=== PATIENT | male | born 1960 | race Two or more races ===

== ENCOUNTER 2021-01-13 10:31 | Inpatient (IN) | payer MEDICARE, MEDICAID ==
[~2021-01-13] VITALS: Ht 170.2 cm; Wt 79.4 kg
[2021-01-13] MEDS ORDERED: Morphine Sulfate 2mg/ml Inj(IV/IM USE ONLY) IVP ONE (10:45)
[2021-01-13] MEDS ORDERED: METOPROLOL TART25 MG ORAL (10:45)
[2021-01-13] MEDS ORDERED: ATORVASTATIN CA40 MG ORAL (10:45)
[2021-01-13] MEDS ORDERED: ZOFRAN4 M1 ORAL (10:45)
--- NOTE | 2021-01-13 11:26 | Emergency Room Report ---
History of Present Illness General Chief Complaint: Abdominal Pain Source: Patient Present Illness HPI Patient presents complaining of total body pain. He is also jaundiced. Apparently was recently discharged from the hospital. The pain throughout his body is severe. He was discharged on Dilaudid. Unknown whether he has been receiving this medication. He has a history of liver cancer. There is a suggestion that he was discharged to hospice. There is no clear documentation of this. However family contacted his private doctor and requested repeat evaluation and therefore he was brought to the emergency department. History of diabetes, hypertension and cirrhosis. Patient denies fevers or chills. Review of outside records reveal that he has had atrial fibrillation with rapid ventricular rate. Patient denies dysuria. He has had loose stools without passing any blood or melena. He is felt nauseated but denies vomiting. There is no coffee-ground or bloody vomitus. The patient has a nonproductive cough. He does not feel short of breath at this time. Allergies: Coded Allergies: CEPHALEXIN (Verified Allergy, Unknown, 01/13/21) COVID-19 Screening Contact w/high risk pt: No Experienced COVID-19 symptoms?: No COVID-19 Testing performed [employer]: No Patient History Past Medical History: see triage record, other - Varices, liver mass Past Surgical History: other - shunt Social History: Denies: smoking Social History Narrative With family Reviewed Nursing Documentation: PMH: Agreed; PSxH: Agreed Nursing Documentation-PMH Past Medical History: No History, Except For Hx Hypertension: Yes Hx Diabetes: Yes Hx Cancer: Yes - liver Hx Gastrointestinal Problems: Yes - liver cirrosis Review of Systems All Other Systems: negative except mentioned in HPI Physical Exam Vital Signs Date Time Temp Pulse Resp B/P (MAP) Pulse Ox O2 Delivery O2 Flow Rate FiO2 01/13/21 10:40 97.0 56 14 129/58 (81) 96 Room Air Sp02 EP Interpretation: reviewed, normal General Appearance: mild distress, other - Jaundiced in mild distress, Chronically Ill Eyes: bilateral eye PERRL, bilateral eye EOMI, bilateral eye scleral icterus ENT: dry mucus membranes - Poor dentition Neck: full range of motion, supple Respiratory: lungs clear, normal breath sounds, no respiratory distress Cardiovascular #1: tachycardia, edema Cardiovascular #2: 2+ radial (R) Gastrointestinal: soft, no guarding, no rebound, tenderness, decreased bowel sounds, overweight Genitourinary: no CVA tenderness Musculoskeletal: back normal, no calf tenderness Neurologic: alert, oriented, DTRs symmetric, sensory intact, motor weakness - Diffuse, other - No asterixis Psychiatric: mood/affect normal Skin: warm/dry, jaundice Procedures Critical Care Time Critical Care Time Total Critical Care Time: 35 min bedside evaluation and treatment excludes procedures (EKG). Reason for critical care: Liver failure, atrial fibrillation rapid ventricular response, urinary tract infection with increased lactic lactic acid, repeat evaluations, review of outside records Possible complications: hypotension, hypertension, [place], shock, arrhythmias, metabolic acidosis, end organ damage, respiratory failure. Interventions: Review of outside records, evaluation of possible hospice status, treatment of pain with repeat evaluations. Evaluation of tachycardia. Treatment of possible early sepsis with elevated lactic acid. Initiation of antibiotics, fluids. Metoprolol given for atrial fibrillation with rapid ventricular response. Course: Patient with jaundice and history of liver cancer presents with body pain. Complicated patient. Please see interventions above. Repeat evaluations undertaken. Repeat treatments of pain. Treatment of tachycardia initially with pain medication. Fluid bolus and antibiotics instituted for urinary tract infection when urine was finally obtained. Repeated doses of analgesics with repeat evaluations. Discussion with admitting physician. Consultations: nursing staff, primary physician office staff, admitting physician Performed by: Dr. Shearer Tolerated well condition = serious Medical Decision Making Diagnostic Impression: Primary Impression: Liver failure Qualified Codes: K72.00 - Acute and subacute hepatic failure without coma Additional Impressions: Pancreatitis Qualified Codes: K85.90 - Acute pancreatitis without necrosis or infection, unspecified Leukocytosis Qualified Codes: D72.829 - Elevated white blood cell count, unspecified Renal insufficiency Coagulopathy Atrial fibrillation with RVR UTI (urinary tract infection) Qualified Codes: N39.0 - Urinary tract infection, site not specified Pleural effusion associated with hepatic disorder ER Course Patient with known liver disease presents with total body pain. Differential includes sepsis, liver failure, occult infection, spontaneous bacterial peritonitis, pneumonia, opiate dependence amongst others. Patient evaluated EKG, chest x-ray, CT of the abdomen and labs. Patient treated with analgesia. Complicated patient. Patient placed on cardiac technologist. Ext jug started by me. EKG without injury. Tachycardia with PVCs. Chest x-ray poor inspiration. CT abdomen see below with liver mass. Labs with leukocytosis. Anemia. Elevated lipase. Elevated ammonia. Patient dropped his oxygen saturation to 92%. Oxygen begun. In no respiratory distress. Patient c/o pain. Morphine increased. Still complain of pain and Dilaudid administered. A fib with RVR. Metoprolol ordered. Also small fluid bolus. 1420 Delay for obtaining urinalysis. Late addition of lactic acid which returns el evated. Antibiotics have been started for pyuria. Sepsis re-evaluation. Mental status unchanged. Good perfusion. Heart rate improved with metoprolol and fluids. Discussed with the primary physician. Laboratory Tests Test 01/13/21 11:11 01/13/21 14:24 White Blood Count 14.6 K/UL (4.8-10.8) H Red Blood Count 2.88 M/UL (4.70-6.10) L Hemoglobin 8.9 G/DL (14.2-18.0) L Hematocrit 28.6 % (42.0-52.0) L Mean Corpuscular Volume 99 FL (80-99) Mean Corpuscular Hemoglobin 30.9 PG (27.0-31.0) Mean Corpuscular Hemoglobin Concent 31.1 G/DL (32.0-36.0) L Red Cell Distribution Width 22.9 % (11.6-14.8) H Platelet Count 118 K/UL (150-450) L Mean Platelet Volume 8.0 FL (6.5-10.1) Neutrophils (%) (Auto) 82.8 % (45.0-75.0) H Lymphocytes (%) (Auto) 5.5 % (20.0-45.0) L Monocytes (%) (Auto) 11.2 % (1.0-10.0) H Eosinophils (%) (Auto) 0.3 % (0.0-3.0) Basophils (%) (Auto) 0.3 % (0.0-2.0) Prothrombin Time 18.8 SEC (9.30-11.50) H Prothrombin Time INR 1.8 (0.9-1.1) H Activated Partial Thromboplast Time 43 SEC (23-33) H Sodium Level 133 MMOL/L (136-145) L Potassium Level 4.6 MMOL/L (3.5-5.1) Chloride Level 101 MMOL/L (98-107) Carbon Dioxide Level 20 MMOL/L (21-32) L Anion Gap 12 mmol/L (5-15) Blood Urea Nitrogen 45 mg/dL (7-18) H Creatinine 1.8 MG/DL (0.55-1.30) H Estimated Glomerular Filtration Rate 38.9 mL/min (>60) Glucose Level 101 MG/DL (74-106) Lactic Acid Level 3.40 mmol/L (0.4-2.0) H Calcium Level 8.3 MG/DL (8.5-10.1) L Total Bilirubin 26.0 MG/DL (0.2-1.0) H Direct Bilirubin 18.8 MG/DL (0.0-0.3) H Aspartate Amino Transferase (AST) 180 U/L (15-37) H Alanine Aminotransferase (ALT) 74 U/L (12-78) Alkaline Phosphatase 634 U/L (46-116) H Ammonia 71 umol/L (11-32) H Total Creatine Kinase 57 U/L (26-308) Troponin I 0.014 ng/mL (0.000-0.056) Total Protein 7.0 G/DL (6.4-8.2) Albumin 1.8 G/DL (3.4-5.0) L Globulin 5.2 g/dL Albumin/Globulin Ratio 0.3 (1.0-2.7) L Lipase > 2000 U/L (73-393) H Serum Alcohol < 3 mg/dL Urine Color [place] Urine Appearance Cloudy Urine pH 5 (4.5-8.0) Urine Specific [place] 1.020 (1.005-1.035) Urine Protein 2+ (NEGATIVE) H Urine Glucose (UA) 1+ (NEGATIVE) H Urine Ketones 1+ (NEGATIVE) H Urine Blood 4+ (NEGATIVE) H Urine Nitrite Positive (NEGATIVE) H Urine Bilirubin 3+ (NEGATIVE) H Urine Ictotest Positive (NEGATIVE) Urine Urobilinogen 8 MG/DL (0.0-1.0) H Urine Leukocyte Esterase 3+ (NEGATIVE) H Urine RBC 2-4 /HPF (0 - 0) H Urine WBC Tntc /HPF (0 - 0) H Urine Squamous Epithelial Cells Occasional /LPF Urine Bacteria Many /HPF (NONE) H Urine Coarse Granular Casts 0-2 /LPF (NONE) H EKG Diagnostic Results Rate: normal Rhythm: other - Atrial bigeminy ST Segments: no acute changes Rhythm Strip Diag. Results EP Interpretation: yes Rhythm: NSR, other - Atrial bigeminy Chest X-Ray Diagnostic Results Chest X-Ray Diagnostic Results : Chest X-Ray Ordered: Yes # of Views/Limited/Complete: 1 View Indication: Other EP Interpretation: Yes Interpretation: no pneumothorax, other - Right pleural effusion Impression: Other CT/MRI/US Diagnostic Results CT/MRI/US Diagnostic Results : Imaging Test Ordered: Abdomen and pelvis Impression Impression: Evidence of hepatic cirrhosis, with atrophy and surface nodularity 6.7 cm round exophytic mass arising from segment 4A of the liver. This is presumably related to stated clinical history of liver cancer. Surgical clips are seen adjacent to this mass. Evidence of portal hypertension, with large periesophageal and perigastric varices Moderate ascites, likely related to liver disease. However, there is also a ventriculoperitoneal shunt catheter which may be contributing some volume to the ascites. There is evidence of anasarca, including massive right pleural effusion, diffuse edema of the subcutaneous and abdominal fat limiting assessment of the GI tract, due to lack of enteric contrast administration. No gross acute GI pathology. Colonic diverticulosis. No evidence of diverticulitis Borderline cardiomegaly Incidental finding bilateral gynecomastia Last Vital Signs Date Time Temp Pulse Resp B/P (MAP) Pulse Ox O2 Delivery O2 Flow Rate FiO2 01/13/21 16:00 98.6 109 20 133/85 (101) 100 01/13/21 15:49 Room Air 01/13/21 13:11 2.0 01/13/21 13:11 100 Status: improved Disposition: ADMITTED INPATIENT Condition: Serious Sam Shearer MD Jan 13, 2021 11:26
[2021-01-13 11:39] LABS: BASOPHILS % (AUTO) 0.3 % (0.0-2.0); EOSINOPHILS % (AUTO) 0.3 % (0.0-3.0); HEMATOCRIT 28.6 % (42.0-52.0); HEMOGLOBIN 8.9 G/DL (14.2-18.0); LYMPHOCYTES % (AUTO) 5.5 % (20.0-45.0); MEAN CORPUSCULAR VOLUME 99 FL (80-99); MONOCYTES % (AUTO) 11.2 % (1.0-10.0); NEUTROPHILS % (AUTO) 82.8 % (45.0-75.0); PLATELET COUNT 118 K/UL (150-450); RED BLOOD COUNT 2.88 M/UL (4.70-6.10); RED CELL DISTRIBUTION WIDTH 22.9 % (11.6-14.8); WHITE BLOOD COUNT 14.6 K/UL (4.8-10.8)
[2021-01-13 11:45] LABS: ANION GAP 12 mmol/L (5-15); BLOOD UREA NITROGEN 45 mg/dL (7-18); CALCIUM 8.3 MG/DL (8.5-10.1); CARBON DIOXIDE 20 MMOL/L (21-32); CHLORIDE 101 MMOL/L (98-107); CREATININE 1.8 MG/DL (0.55-1.30); INR 1.8 (0.9-1.1); POTASSIUM 4.6 MMOL/L (3.5-5.1); SODIUM 133 MMOL/L (136-145)
[2021-01-13 11:46] LABS: AMMONIA 71 umol/L (11-32)
--- NOTE | 2021-01-13 12:00 | NUR ---
ED Nurse Note:pt. was brought from home with c/o abdominal and generalized pain, has hx of liver cirrosis and CA, pt. is A/Ox3, non-ambulatory at this time
[2021-01-13 12:04] LABS: ALANINE AMINOTRANSFERASE 74 U/L (12-78); ALBUMIN 1.8 G/DL (3.4-5.0); ALBUMIN/GLOBULIN RATIO 0.3 (1.0-2.7); ALKALINE PHOSPHATASE 634 U/L (46-116); ASPARTATE AMINO TRANSFERASE 180 U/L (15-37); CREATINE KINASE 57 U/L (26-308)
[2021-01-13 12:05] LABS: BILIRUBIN,DIRECT 18.8 MG/DL (0.0-0.3)
--- NOTE | 2021-01-13 12:17 | Diagnostic Imaging Report ---
Indication: Abdominal pain Technique: Spiral acquisitions obtained through the abdomen and pelvis. No oral contrast utilized, per emergency room physician request No IV contrast utilized, per referring physician request.. Multiplanar reconstructions were generated. Total dose length product 595 mGycm. CTDIvol(s) 10 mGy. Dose reduction achieved using automated exposure control Comparison: None Findings: Lack of enteric contrast limits assessment of the GI tract. There are colonic diverticula. No definite evidence of diverticulitis. The appendix is normal. There is a moderate amount of free intraperitoneal fluid. No free intraperitoneal gas. The stomach and duodenum are unremarkable. Lack of IV contrast limits assessment of the solid organs. The liver is very atrophic and demonstrates extensive surface nodularity. Surgical clips are seen at the inferior aspect of the left hepatic lobe. Arising from segment 4A, there is a round exophytic mass which measures approximately 6.7 cm in diameter. This demonstrates some peripheral calcification. Large perigastric and periesophageal varices are demonstrated. There is a moderate amount of ascites fluid. A ventriculoperitoneal shunt catheter is seen coursing through the peritoneal space and has its tip in the pelvis. The pancreas, spleen, adrenals, kidneys are grossly unremarkable. No retroperitoneal or mesenteric mass or adenopathy. No pelvic mass or adenopathy. There is bilateral gynecomastia. There is diffuse edema of the subcutaneous and abdominal fat. There is a massive right pleural effusion. This results in complete atelectasis of the right lower lobe. The included left lung base demonstrates some atelectasis, no pleural fluid. The heart is borderline large. The bones are unremarkable for age. Impression: Evidence of hepatic cirrhosis, with atrophy and surface nodularity 6.7 cm round exophytic mass arising from segment 4A of the liver. This is presumably related to stated clinical history of liver cancer. Surgical clips are seen adjacent to this mass. Evidence of portal hypertension, with large periesophageal and perigastric varices Moderate ascites, likely related to liver disease. However, there is also a ventriculoperitoneal shunt catheter which may be contributing some volume to the ascites. There is evidence of anasarca, including massive right pleural effusion, diffuse edema of the subcutaneous and abdominal fat limiting assessment of the GI tract, due to lack of enteric contrast administration. No gross acute GI pathology. Colonic diverticulosis. No evidence of diverticulitis Borderline cardiomegaly Incidental finding bilateral gynecomastia The CT scanner at [facility] is accredited by the [employer] and the scans are performed using protocols designed to limit radiation exposure to as low as reasonably achievable to attain images of sufficient resolution adequate for diagnostic evaluation.
[2021-01-13] MEDS ORDERED: Morphine Sulfate 4mg/ml Inj (IV USE ONLY) ONE (13:06)
[2021-01-13 13:11] VITALS: BP 119/52
[2021-01-13] MEDS ORDERED: Morphine Sulfate 4mg/ml Inj (IV USE ONLY) IVP ONE (13:15)
[2021-01-13] MEDS ORDERED: Hydromorphone 0.5mg/0.5ml inj IVP ONE (14:15)
[2021-01-13] MEDS ORDERED: Metoprolol Tartrate 5mg/5ml Inj IVP STA (14:28)
[2021-01-13 14:31] LABS: APPEARANCE,URINE CLOUDY; BILIRUBIN, URINE 3+ (NEGATIVE); GLUCOSE, URINE (UA) 1+ (NEGATIVE); KETONES,URINE 1+ (NEGATIVE); LEUKOCYTE ESTERASE ,URINE 3+ (NEGATIVE); NITRITE,URINE POSITIVE (NEGATIVE); PH,URINE 5 (4.5-8.0); PROTEIN,URINE 2+ (NEGATIVE); UROBILINOGEN,URINE 8 MG/DL (0.0-1.0)
[2021-01-13] MEDS ORDERED: Metoprolol Tartrate 5mg/5ml Inj ONE (14:33)
[2021-01-13 14:46] LABS: COLOR,URINE ORANGE
--- NOTE | 2021-01-13 14:57 | NUR ---
Report called to BALTAZAR Landon in Telemetry.
--- NOTE | 2021-01-13 15:06 | Diagnostic Imaging Report ---
Indication: Shortness of breath Technique: One view of the chest Comparison: none Findings: There is a massive right pleural effusion, with only small amount of aerated lung. The left pleural spaces clear. There may be some congestion of the left lung interstitium. The heart size is difficult to assess. There is ventriculoperitoneal shunt tubing Impression: Massive right pleural effusion Interstitial edema
--- NOTE | 2021-01-13 15:45 | NUR ---
NURSE NOTES: received pt from ED. pt is alert and awake. assisted to the bed. denies any pain at this time. respiration is even and unlabored on room air. noted with generalized edema. elevated extremities on a pillow. pt is made comfortable in bed. placed call light within reach.
[2021-01-13 16:00] VITALS: BP 133/85
[2021-01-13] MEDS ORDERED: Mylanta II UD 30ml ORAL PRN (16:45)
[2021-01-13] MEDS ORDERED: Morphine Sulfate 2mg/ml Inj(IV/IM USE ONLY) IVP PRN (16:45)
[2021-01-13] MEDS ORDERED: LORazepam 1mg tab ORAL PRN (16:45)
--- NOTE | 2021-01-13 16:45 | Consultation ---
History of Present Illness General Date patient seen: Jan 13, 2021 Reason for Hospitalization: Abdominal Pain Present Illness HPI /60-year-old male with known history of liver disease at present [facility] complaining of total body pain as well as abdominal pain. Noted to have significantly elevated LFTs T bili in the 20s jaundice abdominal distention fluid overload CT noted surgery called to evaluate assist with care patient seen, patient eval, chart reviewed. Abdominal pain related to underlying liver dysfunction no acute abdomen. Labs reviewed imaging reviewed patient states passing flatus and bowel movement. States abdominal pain is generalized 10 out of 10 only better with pain medication. States he is hungry. No nausea vomiting fever chills heavy etoh Allergies: Coded Allergies: CEPHALEXIN (Verified Allergy, Unknown, 01/13/21) COVID-19 Screening Contact w/high risk pt: No Experienced COVID-19 symptoms?: No Medication History Scheduled Atorvastatin Calcium* (Atorvastatin Calcium*), 40 MG ORAL BEDTIME, (Reported) Metoprolol Tartrate* (Metoprolol Tartrate*), 25 MG ORAL EVERY 12 HOURS, (Reported) Scheduled PRN Ondansetron (Zofran), 4 MG ORAL Q6H PRN for Nausea & Vomiting, (Reported) Patient History History Provided By: Patient, Medical Record, PMD Healthcare decision maker Resuscitation status Advanced Directive on File Past Medical/Surgical History Past Medical/Surgical History: (1) UTI (urinary tract infection) (2) Coagulopathy (3) Leukocytosis (4) Pancreatitis (5) Renal insufficiency (6) Liver failure (7) Atrial fibrillation with RVR Review of Systems Review of Symptoms General ROS: no weight loss or fever Psychological ROS: no depression or mood changes, no memory loss Ophthalmic ROS: no visual changes or eye irritation ENT ROS: no nasal congestion, hearing loss, dizziness Allergy and Immunology ROS: no allergic symptoms or urticaria Hematological and Lymphatic ROS: no swollen glands, unusual bleeding or bruising Endocrine ROS: no polyuria, polydipsia, weight changes, temperature intolerance Respiratory ROS: no cough, shortness of breath, or wheezing Cardiovascular ROS: no chest pain or dyspnea on exertion Gastrointestinal ROS: ++ abdominal pain, bright red blood in stool. Musculoskeletal ROS: no myalgias or arthralgias Neurological ROS: no TIA or stroke symptoms Dermatological ROS: no new or changing skin lesions, rashes or pruritis Physical Exam Physical Exam General appearance: alert, cooperative, no distress, appears stated age Head: Normocephalic, without obvious abnormality, atraumatic Eyes: conjunctivae/corneas clear. PERRL, EOM's intact. Fundi benign jaundice Throat: Lips, mucosa, and tongue normal. Teeth and gums normal Neck: supple, symmetrical, trachea midline, no adenopathy, thyroid: not enlarged, symmetric, no tenderness/mass/nodules, no carotid bruit and no JVD Lungs: clear to auscultation bilaterally Heart: regular rate and rhythm, S1, S2 normal, no murmur, click, rub or gallop Abdomen: soft, non-tender. Bowel sounds normal. No masses, no organomegaly Extremities: extremities normal, atraumatic, no cyanosis or edema Pulses: 2+ and symmetric Skin: Skin color, texture, turgor normal. No rashes or lesions Neurologic: Grossly normal Last 24 Hour Vital Signs Date Time Temp Pulse Resp B/P (MAP) Pulse Ox O2 Delivery O2 Flow Rate FiO2 01/13/21 16:00 98.6 109 20 133/85 (101) 100 01/13/21 15:49 Room Air 01/13/21 14:36 144 120/78 01/13/21 13:11 97.0 72 17 119/52 100 Nasal Cannula 2.0 01/13/21 13:11 64 16 Nasal Cannula 2.0 100 01/13/21 13:09 150 20 Room Air 01/13/21 10:40 97.0 56 14 129/58 (81) 96 Room Air Laboratory Tests Test 01/13/21 11:11 01/13/21 14:24 White Blood Count 14.6 K/UL (4.8-10.8) H Red Blood Count 2.88 M/UL (4.70-6.10) L Hemoglobin 8.9 G/DL (14.2-18.0) L Hematocrit 28.6 % (42.0-52.0) L Mean Corpuscular Volume 99 FL (80-99) Mean Corpuscular Hemoglobin 30.9 PG (27.0-31.0) Mean Corpuscular Hemoglobin Concent 31.1 G/DL (32.0-36.0) L Red Cell Distribution Width 22.9 % (11.6-14.8) H Platelet Count 118 K/UL (150-450) L Mean Platelet Volume 8.0 FL (6.5-10.1) Neutrophils (%) (Auto) 82.8 % (45.0-75.0) H Lymphocytes (%) (Auto) 5.5 % (20.0-45.0) L Monocytes (%) (Auto) 11.2 % (1.0-10.0) H Eosinophils (%) (Auto) 0.3 % (0.0-3.0) Basophils (%) (Auto) 0.3 % (0.0-2.0) Prothrombin Time 18.8 SEC (9.30-11.50) H Prothromb Time International Ratio 1.8 (0.9-1.1) H Activated Partial Thromboplast Time 43 SEC (23-33) H Sodium Level 133 MMOL/L (136-145) L Potassium Level 4.6 MMOL/L (3.5-5.1) Chloride Level 101 MMOL/L (98-107) Carbon Dioxide Level 20 MMOL/L (21-32) L Anion Gap 12 mmol/L (5-15) Blood Urea Nitrogen 45 mg/dL (7-18) H Creatinine 1.8 MG/DL (0.55-1.30) H Estimat Glomerular Filtration Rate 38.9 mL/min (>60) Glucose Level 101 MG/DL (74-106) Lactic Acid Level 3.40 mmol/L (0.4-2.0) H Calcium Level 8.3 MG/DL (8.5-10.1) L Total Bilirubin 26.0 MG/DL (0.2-1.0) H Direct Bilirubin 18.8 MG/DL (0.0-0.3) H Aspartate Amino Transf (AST/SGOT) 180 U/L (15-37) H Alanine Aminotransferase (ALT/SGPT) 74 U/L (12-78) Alkaline Phosphatase 634 U/L (46-116) H Ammonia 71 umol/L (11-32) H Total Creatine Kinase 57 U/L (26-308) Troponin I 0.014 ng/mL (0.000-0.056) Total Protein 7.0 G/DL (6.4-8.2) Albumin 1.8 G/DL (3.4-5.0) L Globulin 5.2 g/dL Albumin/Globulin Ratio 0.3 (1.0-2.7) L Lipase > 2000 U/L (73-393) H Serum Alcohol < 3 mg/dL Urine Color [place] Urine Appearance Cloudy Urine pH 5 (4.5-8.0) Urine Specific [place] 1.020 (1.005-1.035) Urine Protein 2+ (NEGATIVE) H Urine Glucose (UA) 1+ (NEGATIVE) H Urine Ketones 1+ (NEGATIVE) H Urine Blood 4+ (NEGATIVE) H Urine Nitrite Positive (NEGATIVE) H Urine Bilirubin 3+ (NEGATIVE) H Urine Ictotest Positive (NEGATIVE) Urine Urobilinogen 8 MG/DL (0.0-1.0) H Urine Leukocyte Esterase 3+ (NEGATIVE) H Urine RBC 2-4 /HPF (0 - 0) H Urine WBC Tntc /HPF (0 - 0) H Urine Squamous Epithelial Cells Occasional /LPF Urine Bacteria Many /HPF (NONE) H Urine Coarse Granular Casts 0-2 /LPF (NONE) H Height (Feet): 5 Height (Inches): 7.00 Weight (Pounds): 175 Assessment/Plan Problem List: (1) UTI (urinary tract infection) ICD Codes: N39.0 - Urinary tract infection, site not specified SNOMED: 27398273 (2) Coagulopathy ICD Codes: D68.9 - Coagulation defect, unspecified SNOMED: 60894899 (3) Leukocytosis ICD Codes: D72.829 - Elevated white blood cell count, unspecified SNOMED: 466546390, 524516424 (4) Pancreatitis Assessment & Plan: 60-year-old male with liver disease now pancreatitis. Abdominal pain. Labs noted imaging reviewed. No acute surgical intervention necessary at this time. GI eval liver eval n.p.o. IV fluids trend labs we will follow with you on exam recommendations thank you for letting present patient's care There are colonic diverticula. No definite evidence of diverticulitis. The appendix is normal. There is a moderate amount of free intraperitoneal fluid. No free intraperitoneal gas. The stomach and duodenum are unremarkable. Lack of IV contrast limits assessment of the solid organs. The liver is very atrophic and demonstrates extensive surface nodularity. Surgical clips are seen at the inferior aspect of the left hepatic lobe. Arising from segment 4A, there is a round exophytic mass which measures approximately 6.7 cm in diameter. This demonstrates some peripheral calcification. Large perigastric and periesophageal varices are demonstrated. There is a moderate amount of ascites fluid. A ventriculoperitoneal shunt catheter is seen coursing through the peritoneal space and has its tip in the pelvis. The pancreas, spleen, adrenals, kidneys are grossly unremarkable. No retroperitoneal or mesenteric mass or adenopathy. No pelvic mass or adenopathy. There is bilateral gynecomastia. There is diffuse edema of the subcutaneous and abdominal fat. There is a massive right pleural effusion. This results in complete atelectasis of the right lower lobe. The included left lung base demonstrates some atelectasis, no pleural fluid. The heart is borderline large. The bones are unremarkable for age. Impression: Evidence of hepatic cirrhosis, with atrophy and surface nodularity 6.7 cm round exophytic mass arising from segment 4A of the liver. This is presumably related to stated clinical history of liver cancer. Surgical clips are seen adjacent to this mass. Evidence of portal hypertension, with large periesophageal and perigastric varices Moderate ascites, likely related to liver disease. However, there is also a ventriculoperitoneal shunt catheter which may be contributing some volume to the ascites. There is evidence of anasarca, including massive right pleural effusion, diffuse edema of the subcutaneous and abdominal fat limiting assessment of the GI tract, due to lack of enteric contrast administration. No gross acute GI pathology. Colonic diverticulosis. No evidence of diverticulitis Borderline cardiomegaly Incidental finding bilateral gynecomastia ICD Codes: K85.90 - Acute pancreatitis without necrosis or infection, unspecified SNOMED: 37585896 (5) Renal insufficiency ICD Codes: N28.9 - Disorder of kidney and ureter, unspecified SNOMED: 254791104, 171127220 (6) Liver failure ICD Codes: K72.90 - Hepatic failure, unspecified without coma SNOMED: 73787491 (7) Atrial fibrillation with RVR ICD Codes: I48.91 - Unspecified atrial fibrillation SNOMED: [id number] Thomas Izquierdo Jan 13, 2021 16:45
--- NOTE | 2021-01-13 18:13 | History & Physical ---
History and Physical History & Physicial Dictated for Int Med-Dr Diop no. [id number]. Israel Miller MD Jan 13, 2021 18:13
--- NOTE | 2021-01-13 18:59 | History and Physical Report ---
DATE OF ADMISSION: 01/13/2021 CHIEF COMPLAINT: Patient is a 60-year-old male who presents with chief complaint of generalized pain. HISTORY OF PRESENT ILLNESS: Patient has history of hypertension and hypercholesterolemia. Patient presented to [facility] complaining of 2-day history of generalized pain. Patient was found to be in liver failure and also with atrial fibrillation with rapid ventricular rate. Patient is admitted with new-onset liver failure. REVIEW OF SYSTEMS: CONSTITUTIONAL: Patient denies weight loss or gain. Patient denies fevers or chills. HEENT: Patient denies ear or throat pain. Patient denies headache. CARDIOVASCULAR: Patient denies palpitations or chest pain. CHEST: Patient denies wheeze or shortness of breath. ABDOMINAL: Patient complains of generalized abdominal pain. Patient denies nausea, vomiting, diarrhea, or constipation. GENITOURINARY: Patient denies dysuria or increased frequency of urination. NEUROMUSCULAR: Patient complains of generalized pain as above. Patient denies seizures or generalized weakness. PAST MEDICAL HISTORY: Significant for: 1. Hypertension. 2. Hypercholesterolemia. PAST SURGICAL HISTORY: Patient denies. CURRENT MEDICATIONS: 1. Atorvastatin 40 mg 1 tablet p.o. at bedtime. 2. Metoprolol tartrate 25 mg p.o. twice daily. ALLERGIES: Keflex. SOCIAL HISTORY: Patient is . Patient denies tobacco or alcohol use. PHYSICAL EXAMINATION: VITAL SIGNS: Temperature 97.0, respirations 16, pulse 64 to 150, blood pressure 119/52. GENERAL: Patient is well-developed and well-nourished male, who is obviously jaundiced. HEENT: Eyes with scleral icterus, otherwise pupils are equal and responsive to light and accommodation. Extraocular movements are intact. NECK: Supple without lymphadenopathy. CHEST: Lungs are clear to auscultation bilaterally without wheezes or rales. CARDIOVASCULAR: Regular rhythm and rate. S1-S2 are normal without murmurs, rubs, or gallops. ABDOMEN: Distended, decreased bowel sounds with no rebound or guarding to palpitation. RECTAL/GENITAL: Refused. NEUROLOGIC: Cranial nerves II through XII are grossly intact without focal deficits. Motor strength is 5/5 bilaterally. Deep tendon reflexes are 2+ plantar. LABORATORY STUDIES: WBC 14.6, hemoglobin 8.9, hematocrit 28.6, platelets 118,000. Sodium 133, potassium 4.6, chloride 101, CO2 20, BUN 45, creatinine 1.8, glucose 101. Total bilirubin elevated at 26.0, direct bilirubin elevated at 18.8, AST elevated at 180, alkaline phosphatase elevated at 1634. Ammonia level elevated at 71. Lipase elevated at greater than 2000. Troponin 0.014. Urinalysis showed 2+ protein, 1+ glucose, 1+ ketones, 4+ blood, positive nitrite, 3+ bilirubin with wbc's too numerous to count. A CT scan of the abdomen and pelvis was reported as liver mass consistent with liver cancer and cirrhosis. ASSESSMENT: This is a 60-year-old male. 1. Liver mass. 2. Liver failure. 3. Urinary tract infection. 4. Atrial fibrillation with rapid ventricular rate. 5. Pancreatitis. 6. Coagulopathy. 7. Renal failure. 8. Elevated liver function tests. 9. Hypertension. 10. Hypercholesterolemia. TREATMENT: 1. Liver mass. An Oncology consultation has been obtained with Dr. Adknis. Patient has a stated history of possible liver cancer, however this has not been diagnosed. 2. Liver failure. This may be secondary to liver cancer as above. A Gastroenterology consultation has been obtained with Dr. Jorje Ross. 3. Urinary tract infection. Patient has been placed empirically on intravenous Levaquin. A urine culture is pending. 4. Atrial fibrillation with rapid ventricular rate. A Cardiology consultation has been obtained with Dr. Dayne Vasquez. 5. Pancreatitis. As above, a Gastroenterology consultation has been obtained with Dr. Jorje Ross. 6. Coagulopathy. This is secondary to liver failure as above. 7. Renal failure. This is probably secondary to hepatorenal failure. 8. Elevated liver function tests. 9. Hypertension. Continue metoprolol as above. 10. Hypercholesterolemia. Continue atorvastatin as above. Israel Miller M.D. DR: TAPAN JOB#: [id number] CC:
--- NOTE | 2021-01-13 19:04 | NUR ---
NURSE NOTES: Received report from BALTAZAR Landon. Pt is A/O x1-2 and verbally responsive. Pt is Nepali speaking with simple Maltese. last repairer shows Sinus Rhythm at 89. No SOB or acute distress. Pain noted in epigastric area but subsided to minimal because of the medication given in ED. Will continue to follow up regarding medication needed. Pt is noted with 2+ edema. EJ 22G noted on the left side with NS running @ 50cc/hr. Will continue plan of care.
--- NOTE | 2021-01-13 19:26 | NUR ---
NURSE HAND-OFF REPORT: Important Events on Shift:new admit Patient Status: asleep and arousable Diet: npo Pending Orders: n/a Pending Results/Labs:n/a Pending MD notification:n/a Latest Vital Signs: Temperature 98.6 , Pulse 117 , B/P 133 /85 , Respiratory Rate 20 , O2 SAT 100 , Nasal Cannula, O2 Flow Rate 2.0 . Vital Sign Comment: stable EKG Rhythm: Atrial Fibrillation Rhythm change?: N MD Notified?: - MD Response: Latest Tirado Fall Score: 45 Fall Risk: High Risk Safety Measures: Call light , Bed Alarm , Side Rails Side Rails x3, Bed position Low and Locked. Fall Precautions: Report given to Cynthia.
[2021-01-13 20:00] VITALS: BP 126/73
[2021-01-13] MEDS: Docusate 100mg cap ORAL SCH (20:34)
[2021-01-14] VITALS (46 sets, daily range): BP systolic 43–170; BP diastolic 13–109
--- NOTE | 2021-01-14 03:54 | NUR ---
NURSE NOTES: Received report from BALTAZAR Landon. Pt is A/O x1-2 and verbally responsive. Pt is Greenlandic speaking with simple Kinyarwanda. vehicle monitor technician shows Sinus Rhythm at 89. No SOB or acute distress. Pain noted in epigastric area but subsided to minimal because of the medication given in ED. Will continue to follow up regarding medication needed. Pt is noted with 2+ edema. EJ 22G noted on the left side with NS running @ 50cc/hr. Will continue plan of care.
--- NOTE | 2021-01-14 03:59 | NUR ---
NURSE NOTES: Pt noted to be sinus tachycardia and pain medication given. Will continue to follow up.
--- NOTE | 2021-01-14 04:45 | NUR ---
NURSE NOTES: With pt still being 130-150 on conveyor monitor sustained contacted Dr Diop notifying him of the change and awaiting new orders.
--- NOTE | 2021-01-14 05:28 | NUR ---
NURSE NOTES: With pt still having 140-150 HR and awaiting new orders. supervisor fleshing came to the floor and suspected A-fib. EKG taken twice 5 minutes apart in which first one showed Aflutter and then the second showed A-fib w/ RVR. Dr. Diop additionally contacted and notified. Awaiting new orders.
--- NOTE | 2021-01-14 06:44 | NUR ---
NURSE NOTES: Paged Dr Diop regarding pt still having A-fib @ 140-150. Awaiting a call back.
--- NOTE | 2021-01-14 06:48 | NUR ---
NURSE HAND-OFF REPORT: Important Events on Shift: Pt switched to A-fib w/ RVR and applied 4L via NC for supplemental oxygen to keep O2 >92%. Patient Status: Diet: Pending Orders: Pending Results/Labs: Pending MD notification: Latest Vital Signs: Temperature 97.1 , Pulse 145 , B/P 105 /57 , Respiratory Rate 18 , O2 SAT 96 , Nasal Cannula, O2 Flow Rate 2.0 . Vital Sign Comment: EKG Rhythm: Sinus Tachycardia Rhythm change?: Daniel HERRMANN Notified?: Daniel Diop MD Response: Message left await call Latest Tirado Fall Score: 45 Fall Risk: High Risk Safety Measures: Call light , Bed Alarm , Side Rails Side Rails x3, Bed position Low and Locked. Fall Precautions: Report given to
[2021-01-14] MEDS ORDERED: Heparin1,000 units/500ml Premix(Conc:2 units/ml) IV ONE (07:30)
[2021-01-14] MEDS ORDERED: Heparin 25,000u/D5W 500ml 500 ML IV SCH (07:30)
[2021-01-14] MEDS ORDERED: Digoxin 0.5mg/2ml Inj IVP SCH (07:30)
[2021-01-14] MEDS ORDERED: Heparin 5000 units/ml inj IV ONE (07:30)
[2021-01-14 07:35] LABS: HEMATOCRIT 30.4 % (42.0-52.0); HEMOGLOBIN 9.3 G/DL (14.2-18.0); MEAN CORPUSCULAR VOLUME 102 FL (80-99); PLATELET COUNT 113 K/UL (150-450); RED BLOOD COUNT 2.99 M/UL (4.70-6.10)
[2021-01-14 07:39] LABS: WHITE BLOOD COUNT 24.4 K/UL (4.8-10.8)
--- NOTE | 2021-01-14 07:40 | NUR ---
NURSE NOTES: Report received from Leslie LEDESMA. Patient seen on rounds, asleep but responsive to tactile stimuli. GCS 8 (E2, MM 4, V2), FLACC 4. Pt is on room air with no signs of acute distress. PIV over left EJ patent and infusing NS @ 50cc/hr. Jaundice noted. Abdomen is round and tender to deep palpation. Pt has generalized edema. Incontinent and bedbound. Bed low and locked, siderails up x2, call light placed within reach, zone alarms on 1, will reassess on next rounds.
[2021-01-14 07:50] LABS: INR 2.2 (0.9-1.1)
[2021-01-14 07:58] LABS: ALANINE AMINOTRANSFERASE 80 U/L (12-78); ALBUMIN 1.9 G/DL (3.4-5.0); ALBUMIN/GLOBULIN RATIO 0.4 (1.0-2.7); ALKALINE PHOSPHATASE 659 U/L (46-116); ANION GAP 16 mmol/L (5-15); ASPARTATE AMINO TRANSFERASE 204 U/L (15-37); BILIRUBIN,TOTAL 26.8 MG/DL (0.2-1.0); BLOOD UREA NITROGEN 51 mg/dL (7-18); CALCIUM 8.7 MG/DL (8.5-10.1); CARBON DIOXIDE 17 MMOL/L (21-32); CHLORIDE 102 MMOL/L (98-107); CREATININE 2.5 MG/DL (0.55-1.30); HDL CHOLESTEROL 6 MG/DL (40-60); POTASSIUM 5.2 MMOL/L (3.5-5.1); SODIUM 135 MMOL/L (136-145); TRIGLYCERIDES 134 MG/DL (30-150)
--- NOTE | 2021-01-14 08:11 | NUR ---
NURSE NOTES: Dr. Diop notified of WBC 24.4. Received orders to draw Blood cultures x2, reflex UA, start on Vanco per pharmacy and IV Zosyn 3.375g q8hrs. Notified of Keflex allergy, is aware and wishes to continue with Zosyn. Orders noted and carried out.
[2021-01-14] MEDS: Docusate 100mg cap ORAL SCH (08:28)
[2021-01-14 08:41] LABS: AMYLASE 1661 U/L (25-115)
[2021-01-14 08:42] LABS: BILIRUBIN,DIRECT 19.5 MG/DL (0.0-0.3)
--- NOTE | 2021-01-14 08:42 | NUR ---
NURSE NOTES: Dr. Ross notified of critical labs: amylase 1661. No orders verbalized.
[2021-01-14] MEDS: Lactulose 20gm/30ml UDC ORAL SCH ×3 (08:51→18:00)
[2021-01-14 09:00] LABS: CHOLESTEROL < 50 MG/DL (< 200)
[2021-01-14] MEDS ORDERED: Vancomycin 1.5gm/300ml Premix IVPB ONE (09:00)
[2021-01-14 09:01] LABS: HEMATOCRIT 32.5 % (42.0-52.0); HEMOGLOBIN 9.6 G/DL (14.2-18.0); MEAN CORPUSCULAR VOLUME 104 FL (80-99); PLATELET COUNT 120 K/UL (150-450); RED BLOOD COUNT 3.12 M/UL (4.70-6.10); RED CELL DISTRIBUTION WIDTH 24.4 % (11.6-14.8)
[2021-01-14 09:05] LABS: WHITE BLOOD COUNT 22.6 K/UL (4.8-10.8)
[2021-01-14] MEDS ORDERED: Sodium Polystyrene Sulfonate 15gm Powder ORAL SCH (09:15)
[2021-01-14] MEDS ORDERED: Phytonadione 1 MG in D5W 55 ML IVPB ONE (10:00)
[2021-01-14] MEDS: Piperacillin/Tazobactam 3.375 GM in NS 110 ML IVPB SCH ×2 (11:24→22:00)
[2021-01-14] MEDS: NovoLOG Insulin Flexpen SUBQ SCH ×3 (11:30→21:00)
[2021-01-14] MEDS ORDERED: Sodium Polystyrene Sulfonate Enema RECTAL ONE (11:30)
--- NOTE | 2021-01-14 12:00 | Internal Med Progress Note ---
Subjective Date of Service: Jan 14, 2021 Physician Name Israel Miller Attending Physician Gen Diop MD Current Medications Medications (Trade) Dose Ordered Sig/Vijay Route PRN Reason Start Time Stop Time Status Last Admin Dose Admin Al Hydroxide/Mg Hydroxide (Mylanta II) 30 ml Q6H PRN ORAL dyspepsia 01/13/21 16:45 02/12/21 16:44 Dextrose (Dextrose 50%) 25 ml Q30M PRN IV Hypoglycemia 01/14/21 07:30 04/14/21 07:29 Dextrose (Dextrose 50%) 50 ml Q30M PRN IV Hypoglycemia 01/14/21 07:30 04/14/21 07:29 01/14/21 11:42 Diphenhydramine HCl (Benadryl) 25 mg Q6H PRN ORAL Itching/Pruritis 01/13/21 16:45 02/12/21 16:44 Insulin Aspart (NovoLOG) BEFORE MEALS AND HS SUBQ 01/14/21 11:30 04/14/21 11:29 Lactulose (Cephulac) 20 gm THREE TIMES A DAY ORAL 01/14/21 09:00 02/13/21 08:59 01/14/21 08:51 Lorazepam (Ativan) 1 mg Q4H PRN ORAL For Anxiety 01/13/21 16:45 01/20/21 16:44 01/14/21 03:40 Metoprolol Tartrate (Lopressor) 25 mg Q12HR ORAL 01/14/21 09:00 04/14/21 08:59 01/14/21 08:29 Morphine Sulfate (Morphine Sulfate) 2 mg Q3H PRN IVP Moderate Pain (Pain Scale 4-6) 01/13/21 16:45 01/20/21 16:44 01/14/21 02:59 Ondansetron HCl (Zofran) 4 mg Q6H PRN IVP Nausea & Vomiting 01/13/21 16:45 02/12/21 16:44 Piperacillin Sod/ Tazobactam Sod 3.375 gm/Sodium Chloride 110 ml @ 27.5 mls/hr EVERY 8 HOURS IVPB 01/14/21 10:00 01/19/21 09:59 01/14/21 11:24 Rifaximin (Xifaxan) 550 mg EVERY 12 HOURS ORAL 01/14/21 09:00 01/21/21 08:59 01/14/21 08:51 Sodium Chloride 1,000 ml @ 50 mls/hr Q20H IVLG 01/13/21 17:45 02/12/21 17:44 01/13/21 17:51 Temazepam (Restoril) 15 mg DAILYPRN PRN ORAL Insomnia 01/13/21 16:45 01/20/21 16:44 Vancomycin HCl (Vanco pharmacy to dose) 1 ea DAILY PRN MISC Per rx protocol 01/14/21 08:00 02/13/21 07:59 Allergies: Coded Allergies: CEPHALEXIN (Verified Allergy, Unknown, 01/13/21) ROS Limited/Unobtainable: Yes Subjective 60 YO M admitted with generalized weakness. Now liver failure and atrial fibrillation with rapid ventricular rate. Cover for Int Barrett-Dr Diop Objective Last Vital Signs Date Time Temp Pulse Resp B/P (MAP) Pulse Ox O2 Delivery O2 Flow Rate FiO2 01/14/21 09:00 Room Air 01/14/21 08:29 134 114/63 01/14/21 08:00 96.6 20 99 01/13/21 13:11 2.0 01/13/21 13:11 100 Laboratory Tests Test 01/13/21 14:24 01/14/21 05:43 01/14/21 08:40 Urine Color [place] Urine Appearance Cloudy Urine pH 5 (4.5-8.0) Urine Specific [place] 1.020 (1.005-1.035) Urine Protein 2+ (NEGATIVE) H Urine Glucose (UA) 1+ (NEGATIVE) H Urine Ketones 1+ (NEGATIVE) H Urine Blood 4+ (NEGATIVE) H Urine Nitrite Positive (NEGATIVE) H Urine Bilirubin 3+ (NEGATIVE) H Urine Ictotest Positive (NEGATIVE) Urine Urobilinogen 8 MG/DL (0.0-1.0) H Urine Leukocyte Esterase 3+ (NEGATIVE) H Urine RBC 2-4 /HPF (0 - 0) H Urine WBC Tntc /HPF (0 - 0) H Urine Squamous Epithelial Cells Occasional /LPF Urine Bacteria Many /HPF (NONE) H Urine Coarse Granular Casts 0-2 /LPF (NONE) H White Blood Count 24.4 K/UL (4.8-10.8) #*H 22.6 K/UL (4.8-10.8) *H Red Blood Count 2.99 M/UL (4.70-6.10) L 3.12 M/UL (4.70-6.10) L Hemoglobin 9.3 G/DL (14.2-18.0) L 9.6 G/DL (14.2-18.0) L Hematocrit 30.4 % (42.0-52.0) L 32.5 % (42.0-52.0) L Mean Corpuscular Volume 102 FL (80-99) H 104 FL (80-99) H Mean Corpuscular Hemoglobin 31.2 PG (27.0-31.0) H 30.6 PG (27.0-31.0) Mean Corpuscular Hemoglobin Concent 30.6 G/DL (32.0-36.0) L 29.4 G/DL (32.0-36.0) L Red Cell Distribution Width 24.0 % (11.6-14.8) H 24.4 % (11.6-14.8) H Platelet Count 113 K/UL (150-450) L 120 K/UL (150-450) L Mean Platelet Volume 8.6 FL (6.5-10.1) 9.4 FL (6.5-10.1) Neutrophils (%) (Auto) % (45.0-75.0) % (45.0-75.0) Lymphocytes (%) (Auto) % (20.0-45.0) % (20.0-45.0) Monocytes (%) (Auto) % (1.0-10.0) % (1.0-10.0) Eosinophils (%) (Auto) % (0.0-3.0) % (0.0-3.0) Basophils (%) (Auto) % (0.0-2.0) % (0.0-2.0) Differential Total Cells Counted 100 100 Neutrophils % (Manual) 85 % (45-75) H 84 % (45-75) H Lymphocytes % (Manual) 4 % (20-45) L 4 % (20-45) L Monocytes % (Manual) 9 % (1-10) 10 % (1-10) Eosinophils % (Manual) 0 % (0-3) 0 % (0-3) Basophils % (Manual) 0 % (0-2) 0 % (0-2) Band Neutrophils 2 % (0-8) 2 % (0-8) Platelet Estimate Decreased L Decreased L Platelet Morphology Normal Normal Hypochromasia 1+ 1+ Anisocytosis 2+ 2+ Macrocytosis 1+ 1+ Erythrocyte Sedimentation Rate 101 MM/HR (0-20) H Prothrombin Time 23.0 SEC (9.30-11.50) H Prothromb Time International Ratio 2.2 (0.9-1.1) H Activated Partial Thromboplast Time 52 SEC (23-33) H D-Dimer 21.56 mg/L FEU (0.00-0.49) H Sodium Level 135 MMOL/L (136-145) L Potassium Level 5.2 MMOL/L (3.5-5.1) H Chloride Level 102 MMOL/L (98-107) Carbon Dioxide Level 17 MMOL/L (21-32) L Anion Gap 16 mmol/L (5-15) H Blood Urea Nitrogen 51 mg/dL (7-18) H Creatinine 2.5 MG/DL (0.55-1.30) H Estimat Glomerular Filtration Rate 26.7 mL/min (>60) Glucose Level 73 MG/DL (74-106) L Hemoglobin A1c 4.9 % (4.3-6.0) 5.3 % (4.3-6.0) Lactic Acid Level 6.30 mmol/L (0.4-2.0) H 7.80 mmol/L (0.66-2.22) H Calcium Level 8.7 MG/DL (8.5-10.1) Total Bilirubin 26.8 MG/DL (0.2-1.0) H Direct Bilirubin 19.5 MG/DL (0.0-0.3) H Aspartate Amino Transf (AST/SGOT) 204 U/L (15-37) H Alanine Aminotransferase (ALT/SGPT) 80 U/L (12-78) H Alkaline Phosphatase 659 U/L (46-116) H C-Reactive Protein, Quantitative 12.6 mg/dL (0.00-0.90) H Pro-B-Type Natriuretic Peptide 2317 pg/mL (0-125) H Total Protein 7.1 G/DL (6.4-8.2) Albumin 1.9 G/DL (3.4-5.0) L Globulin 5.2 g/dL Albumin/Globulin Ratio 0.4 (1.0-2.7) L Prealbumin Pending Triglycerides Level 134 MG/DL (30-150) Cholesterol Level < 50 MG/DL (< 200) LDL Cholesterol 23 mg/dL (<100) HDL Cholesterol 6 MG/DL (40-60) L Cholesterol/HDL Ratio (3.3-4.4) Amylase Level 1661 U/L (25-115) *H Lipase > 2000 U/L (73-393) H Thyroid Stimulating Hormone (TSH) 4.146 uiU/mL (0.358-3.740) Microbiology Date/Time Source Procedure Growth Status 01/13/21 14:24 Urine,Clean Catch Urine Culture - Preliminary NO GROWTH Resulted Intake and Output 01/13/21 01/14/21 19:00 07:00 Intake Total 550 ml Balance 550 ml Intake Oral 0 ml IV Total 550 ml # Voids 1 Objective PHYSICAL EXAMINATION: GENERAL: Patient is well-developed and well-nourished male, who is obviously jaundiced. HEENT: Eyes with scleral icterus, otherwise pupils are equal and responsive to light and accommodation. Extraocular movements are intact. NECK: Supple without lymphadenopathy. CHEST: Lungs are clear to auscultation bilaterally without wheezes or rales. CARDIOVASCULAR: Regular rhythm and rate. S1-S2 are normal without murmurs, rubs, or gallops. ABDOMEN: Distended, decreased bowel sounds with no rebound or guarding to palpitation. RECTAL/GENITAL: Refused. NEUROLOGIC: Cranial nerves II through XII are grossly intact without focal deficits. Motor strength is 5/5 bilaterally. Deep tendon reflexes are 2+ plantar. Assessment/Plan Assessment/Plan ASSESSMENT: This is a 60-year-old male. 1. Liver mass. 2. Liver failure. 3. Urinary tract infection. 4. Atrial fibrillation with rapid ventricular rate. 5. Pancreatitis. 6. Coagulopathy. 7. Renal failure. 8. Elevated liver function tests. 9. Hypertension. 10. Hypercholesterolemia. TREATMENT: 1. Liver mass. An Oncology consultation has been obtained with Dr. Adkins. Patient has a stated history of possible liver cancer, however this has not been diagnosed. 2. Liver failure. This may be secondary to liver cancer as above. A Gastroenterology consultation has been obtained with Dr. Jorje Ross. 3. Urinary tract infection. Patient has been placed empirically on intravenous Levaquin. A urine culture is pending. 4. Atrial fibrillation with rapid ventricular rate. A Cardiology consultation has been obtained with Dr. Dayne Vasquez. 5. Pancreatitis. As above, a Gastroenterology consultation has been obtained with Dr. Jorje Ross. 6. Coagulopathy. This is secondary to liver failure as above. 7. Renal failure. This is probably secondary to hepatorenal failure. 8. Elevated liver function tests. 9. Hypertension. Continue metoprolol as above. 10. Hypercholesterolemia. Continue atorvastatin as above. Israel Miller MD Jan 14, 2021 12:00
--- NOTE | 2021-01-14 12:24 | Surgery Progress Note ---
Surgery Progress Note Subjective Additional Comments labs worse ill appearing no n/v Objective Last 24 Hour Vital Signs Date Time Temp Pulse Resp B/P (MAP) Pulse Ox O2 Delivery O2 Flow Rate FiO2 01/14/21 09:00 Room Air 01/14/21 08:29 134 114/63 01/14/21 08:00 96.6 134 20 114/63 (80) 99 01/14/21 08:00 148 01/14/21 07:24 136 01/14/21 04:56 97.1 145 18 105/57 (73) 96 01/14/21 04:00 137 01/14/21 04:00 97.6 130 20 138/85 (102) 99 01/14/21 00:00 69 01/14/21 00:00 98.8 69 18 130/76 (94) 96 01/13/21 21:00 Room Air 01/13/21 20:00 97.9 65 18 126/73 (90) 96 01/13/21 20:00 64 01/13/21 16:00 98.6 109 20 133/85 (101) 100 01/13/21 16:00 117 01/13/21 15:49 Room Air 01/13/21 14:36 144 120/78 01/13/21 13:11 97.0 72 17 119/52 100 Nasal Cannula 2.0 01/13/21 13:11 64 16 Nasal Cannula 2.0 100 01/13/21 13:09 150 20 Room Air I&O Intake and Output 01/13/21 01/14/21 19:00 07:00 Intake Total 550 ml Balance 550 ml Intake Oral 0 ml IV Total 550 ml # Voids 1 Cardiovascular: RSR Respiratory: decreased breath sounds Abdomen: soft, non-tender, decreased bowel sounds Extremities: edema, no tenderness, no cyanosis Laboratory Tests Test 01/13/21 14:24 01/14/21 05:43 01/14/21 08:40 Urine Color [place] Urine Appearance Cloudy Urine pH 5 (4.5-8.0) Urine Specific [place] 1.020 (1.005-1.035) Urine Protein 2+ (NEGATIVE) H Urine Glucose (UA) 1+ (NEGATIVE) H Urine Ketones 1+ (NEGATIVE) H Urine Blood 4+ (NEGATIVE) H Urine Nitrite Positive (NEGATIVE) H Urine Bilirubin 3+ (NEGATIVE) H Urine Ictotest Positive (NEGATIVE) Urine Urobilinogen 8 MG/DL (0.0-1.0) H Urine Leukocyte Esterase 3+ (NEGATIVE) H Urine RBC 2-4 /HPF (0 - 0) H Urine WBC Tntc /HPF (0 - 0) H Urine Squamous Epithelial Cells Occasional /LPF Urine Bacteria Many /HPF (NONE) H Urine Coarse Granular Casts 0-2 /LPF (NONE) H White Blood Count 24.4 K/UL (4.8-10.8) #*H 22.6 K/UL (4.8-10.8) *H Red Blood Count 2.99 M/UL (4.70-6.10) L 3.12 M/UL (4.70-6.10) L Hemoglobin 9.3 G/DL (14.2-18.0) L 9.6 G/DL (14.2-18.0) L Hematocrit 30.4 % (42.0-52.0) L 32.5 % (42.0-52.0) L Mean Corpuscular Volume 102 FL (80-99) H 104 FL (80-99) H Mean Corpuscular Hemoglobin 31.2 PG (27.0-31.0) H 30.6 PG (27.0-31.0) Mean Corpuscular Hemoglobin Concent 30.6 G/DL (32.0-36.0) L 29.4 G/DL (32.0-36.0) L Red Cell Distribution Width 24.0 % (11.6-14.8) H 24.4 % (11.6-14.8) H Platelet Count 113 K/UL (150-450) L 120 K/UL (150-450) L Mean Platelet Volume 8.6 FL (6.5-10.1) 9.4 FL (6.5-10.1) Neutrophils (%) (Auto) % (45.0-75.0) % (45.0-75.0) Lymphocytes (%) (Auto) % (20.0-45.0) % (20.0-45.0) Monocytes (%) (Auto) % (1.0-10.0) % (1.0-10.0) Eosinophils (%) (Auto) % (0.0-3.0) % (0.0-3.0) Basophils (%) (Auto) % (0.0-2.0) % (0.0-2.0) Differential Total Cells Counted 100 100 Neutrophils % (Manual) 85 % (45-75) H 84 % (45-75) H Lymphocytes % (Manual) 4 % (20-45) L 4 % (20-45) L Monocytes % (Manual) 9 % (1-10) 10 % (1-10) Eosinophils % (Manual) 0 % (0-3) 0 % (0-3) Basophils % (Manual) 0 % (0-2) 0 % (0-2) Band Neutrophils 2 % (0-8) 2 % (0-8) Platelet Estimate Decreased L Decreased L Platelet Morphology Normal Normal Hypochromasia 1+ 1+ Anisocytosis 2+ 2+ Macrocytosis 1+ 1+ Erythrocyte Sedimentation Rate 101 MM/HR (0-20) H Prothrombin Time 23.0 SEC (9.30-11.50) H Prothromb Time International Ratio 2.2 (0.9-1.1) H Activated Partial Thromboplast Time 52 SEC (23-33) H D-Dimer 21.56 mg/L FEU (0.00-0.49) H Sodium Level 135 MMOL/L (136-145) L Potassium Level 5.2 MMOL/L (3.5-5.1) H Chloride Level 102 MMOL/L (98-107) Carbon Dioxide Level 17 MMOL/L (21-32) L Anion Gap 16 mmol/L (5-15) H Blood Urea Nitrogen 51 mg/dL (7-18) H Creatinine 2.5 MG/DL (0.55-1.30) H Estimat Glomerular Filtration Rate 26.7 mL/min (>60) Glucose Level 73 MG/DL (74-106) L Hemoglobin A1c 4.9 % (4.3-6.0) 5.3 % (4.3-6.0) Lactic Acid Level 6.30 mmol/L (0.4-2.0) H 7.80 mmol/L (0.66-2.22) H Calcium Level 8.7 MG/DL (8.5-10.1) Total Bilirubin 26.8 MG/DL (0.2-1.0) H Direct Bilirubin 19.5 MG/DL (0.0-0.3) H Aspartate Amino Transf (AST/SGOT) 204 U/L (15-37) H Alanine Aminotransferase (ALT/SGPT) 80 U/L (12-78) H Alkaline Phosphatase 659 U/L (46-116) H C-Reactive Protein, Quantitative 12.6 mg/dL (0.00-0.90) H Pro-B-Type Natriuretic Peptide 2317 pg/mL (0-125) H Total Protein 7.1 G/DL (6.4-8.2) Albumin 1.9 G/DL (3.4-5.0) L Globulin 5.2 g/dL Albumin/Globulin Ratio 0.4 (1.0-2.7) L Prealbumin Pending Triglycerides Level 134 MG/DL (30-150) Cholesterol Level < 50 MG/DL (< 200) LDL Cholesterol 23 mg/dL (<100) HDL Cholesterol 6 MG/DL (40-60) L Cholesterol/HDL Ratio (3.3-4.4) Amylase Level 1661 U/L (25-115) *H Lipase > 2000 U/L (73-393) H Thyroid Stimulating Hormone (TSH) 4.146 uiU/mL (0.358-3.740) Plan Problems: (1) UTI (urinary tract infection) (2) Coagulopathy (3) Leukocytosis (4) Pancreatitis Assessment & Plan: 60-year-old male with liver disease now pancreatitis. Abdominal pain. Labs noted imaging reviewed. No acute surgical intervention necessary at this time. GI eval liver eval n.p.o. IV fluids trend labs we will follow with you on exam recommendations thank you for letting present patient's care There are colonic diverticula. No definite evidence of diverticulitis. The appendix is normal. There is a moderate amount of free intraperitoneal fluid. No free intraperitoneal gas. The stomach and duodenum are unremarkable. Lack of IV contrast limits assessment of the solid organs. The liver is very atrophic and demonstrates extensive surface nodularity. Surgical clips are seen at the inferior aspect of the left hepatic lobe. Arising from segment 4A, there is a round exophytic mass which measures approximately 6.7 cm in diameter. This demonstrates some peripheral calcification. Large perigastric and periesophageal varices are demonstrated. There is a moderate amount of ascites fluid. A ventriculoperitoneal shunt catheter is seen coursing through the peritoneal space and has its tip in the pelvis. The pancreas, spleen, adrenals, kidneys are grossly unremarkable. No retroperitoneal or mesenteric mass or adenopathy. No pelvic mass or adenopathy. There is bilateral gynecomastia. There is diffuse edema of the subcutaneous and abdominal fat. There is a massive right pleural effusion. This results in comple te atelectasis of the right lower lobe. The included left lung base demonstrates some atelectasis, no pleural fluid. The heart is borderline large. The bones are unremarkable for age. Impression: Evidence of hepatic cirrhosis, with atrophy and surface nodularity 6.7 cm round exophytic mass arising from segment 4A of the liver. This is presumably related to stated clinical history of liver cancer. Surgical clips are seen adjacent to this mass. Evidence of portal hypertension, with large periesophageal and perigastric varices Moderate ascites, likely related to liver disease. However, there is also a ventriculoperitoneal shunt catheter which may be contributing some volume to the ascites. There is evidence of anasarca, including massive right pleural effusion, diffuse edema of the subcutaneous and abdominal fat limiting assessment of the GI tract, due to lack of enteric contrast administration. No gross acute GI pathology. Colonic diverticulosis. No evidence of diverticulitis Borderline cardiomegaly Incidental finding bilateral gynecomastia (5) Renal insufficiency (6) Liver failure (7) Atrial fibrillation with RVR Thomas Izquierdo Jan 14, 2021 12:24
--- NOTE | 2021-01-14 13:14 | Consultation ---
DATE OF CONSULTATION: 01/14/2021 CHIEF COMPLAINT: Altered mental status, cirrhosis, liver disease. HISTORY OF PRESENT ILLNESS: Most of history per chart. The patient is alert, not confused, not able to give any history. This is a 60-year-old male with a history of liver cirrhosis, possibly liver cancer, admitted also with complaint of abdominal pain, abdominal swelling, so far since admission he was found to be in active atrial fibrillation, also has possible liver failure. PAST MEDICAL HISTORY: Unable to obtain, but per chart, the patient has a history of hypertension, cirrhosis, possible liver mass. ALLERGIES: To cephalexin. MEDICATIONS: Please see medication reconciliation list. SOCIAL HISTORY: Unable to obtain. FAMILY HISTORY: Unable to obtain. PAST SURGICAL HISTORY: Based on CT, there is some surgery on the liver but we are not sure exactly what kind. PHYSICAL EXAMINATION: VITAL SIGNS: Temperature is 97.1, pulse 134, respiration is 18, blood pressure 105/57. HEENT: Normocephalic and atraumatic. Sclerae are icterus. NECK: Supple. No evidence of obvious lymphadenopathy. CARDIOVASCULAR: Irregularly irregular. Plus S1, S2. LUNGS: Decreased breath sounds bilaterally diffusely based on supine exam. ABDOMEN: Soft and nontender. Mildly distended. Bowel sounds are hypoactive. EXTREMITIES: Bilateral lower extremity edema. NEUROLOGIC: Unable to obtain. The patient is obtunded. LABORATORY DATA: White count is 24,000, hemoglobin 9.3, hematocrit 30, MCV of 102, platelet count is 113. INR is 2.2. Chem-7, sodium 133, potassium 4.6, BUN 45, creatinine is 1.8. Bilirubin is 26, direct 18, AST of 180, ALT 74, alkaline phosphatase of 634. Lipase of 2000. ASSESSMENT: This is a 60-year-old male with liver disease, possible liver mass complicated with portal hypertension, esophageal and gastric varices, ascites, hypoalbuminemia, coagulopathy, possible encephalopathy with ammonia level of 71. PLAN: Discontinue IV heparin given the patient has low platelet count, has esophageal varices, and if he bleeds that would be a disaster for him. We will recommend Cardiology consultation for management of atrial fibrillation and avoid anticoagulation if it is possible. We are actually going to give him vitamin K 1 dose to reverse the coagulopathy. The patient to be started on lactulose t.i.d. and Xifaxan for encephalopathy. Ammonia will be monitored. Abdominal ultrasound. Consider paracentesis if needed. Add albumin daily. The patient overall has a very poor prognosis. I want to thank, Dr. Gen Diop for this kind referral. Jorje Ross M.D. DR: Rosalva JOB#: [id number] CC: Gen Diop M.D.; Fax#: [phone]
--- NOTE | 2021-01-14 13:24 | NUR ---
NURSE NOTES: Dr. Tay notified of critical blood sugar 43. D50 SIVP given, rechecked and improved to 116. Received orders to start on D5 1/2 NS @ 100ml/hr. Orders noted and carried out.
[2021-01-14] MEDS ORDERED: D5NS 1,000 ML IV SCH (13:30)
--- NOTE | 2021-01-14 13:30 | NUR ---
NURSE NOTES: Pt recievced from Carole LEDESMA. PT obtunded, slight moan noted to severe pain. Pt yellow to entire body severely edematous (+4) pt on 2 liters NC increased to6 to keep him above 92%. Vitals as follows 101/44, 98.6 Axillary, 84 HR, 10 respiration and noted to be agonal gasping. Called RT and did stat ABG, hco3 noted to be severely low. Notifed Dr. Diop re all of this. software development manager Shanon also notified Dr. Miller. Per Carole Tay has ordered D5 W however pt severely swollen and no Catheter placed yet. Will start after mckay insertion.
--- NOTE | 2021-01-14 13:36 | NUR ---
NURSE NOTES: Pt transferred to [facility] per Dr. Miller. Report given to Zulema RN. Endorsed that we were unable to place mckay catheter or collect urine via straight cath due to increased resistance and no urine flow. Still pending urinalysis. PIV on left EJ and right upper arm intact. Belongings accounted for. Daughter Jeanette notified of transfer.
--- NOTE | 2021-01-14 15:04 | NUR ---
NURSE NOTES: report given to Chintan LEDESMA.
--- NOTE | 2021-01-14 15:05 | NUR ---
NURSE NOTES: Patient is transferred from [facility]. Received report from BALTAZAR Poole. Patient is on Bipap, restless and unable to follow commands.
--- NOTE | 2021-01-14 15:16 | NUR ---
CASE MANAGEMENT:REVIEW 60YR OLD MALE PRESENTED TO ER CC: SEVERE GENERALIZED PAIN SI: LIVER FAILURE 97.0 150 14 129/58 96% ON RA WBC+14.6 H/H-8.9/28.6 IS: IV ZOFRAN IV PEPCID IV MORPHINE X2 IV DILAUDID IV METOPROLOL X1 IV LEVAQUIN X1 BLOOD CX C ABD/PELVIS CXR : ADMITTED TO TELEMETRY THEN TRANSFERRED TO ICU DCP: FROM HOME
[2021-01-14] MEDS: Norepinephrine 4mg/NS Premix 250 ML IV SCH ×2 (15:30→18:21)
--- NOTE | 2021-01-14 15:30 | NUR ---
NURSE NOTES: Started levophed @4mcg/min via right upper arm IV 20G until patient get central line.
--- NOTE | 2021-01-14 15:39 | NUR ---
NURSE NOTES: Noted with Sinus Huey 20s. No pulse. Called code blue. See code blue sheet.
[2021-01-14] MEDS ORDERED: Sodium Bicarbonate 50ml Carp IV SCH (15:45)
--- NOTE | 2021-01-14 15:45 | Consultation ---
Consult Note Consult Note Asked to evaluate the patient at the request of Dr. Diop for renal failure Patient seen earlier in the ICU Chief Complaint: Abdominal Pain Patient presents complaining of total body pain. He is also jaundiced. Apparently was recently discharged from the hospital. The pain throughout his body is severe. He was discharged on Dilaudid. Unknown whether he has been receiving this medication. He has a history of liver cancer. There is a suggestion that he was discharged to hospice. There is no clear documentation of this. However family contacted his private doctor and requested repeat evaluation and therefore he was brought to the emergency department. History of diabetes, hypertension and cirrhosis. Patient denies fevers or chills. Review of outside records reveal that he has had atrial fibrillation with rapid ventricular rate. Patient denies dysuria. He has had loose stools without passing any blood or melena. He is felt nauseated but denies vomiting. There is no coffee-ground or bloody vomitus. The patient has a nonproductive cough. He does not feel short of breath at this time. Allergies: CEPHALEXIN (Verified Allergy, Unknown, 01/13/21) COVID-19 Screening Contact w/high risk pt: No Experienced COVID-19 symptoms?: No COVID-19 Testing performed DOLLY PUSHER: No Past Medical History: see triage record, other - Varices, liver mass Past Surgical History: other - shunt Social History: Denies: smoking Past Medical History: No History, Except For Hx Hypertension: Yes Hx Diabetes: Yes Hx Cancer: Yes - liver Hx Gastrointestinal Problems: Yes - liver cirrosis Vital Signs Date Time Temp Pulse Resp B/P (MAP) Pulse Ox O2 Delivery O2 Flow Rate FiO2 01/13/21 10:40 97.0 56 14 129/58 (81) 96 Room Air Assessment/Plan Renal failure most likely secondary to liver failure Liver failure, liver mass jaundice, pancreatitis, coagulopathy Atrial fibrillation UTI Pleural effusion Leukocytosis Ordoñez catheter Urine studies IV fluid with bicarb Lactulose IV Protonix Monitor renal parameters Per orders Michael Munoz MD Jan 14, 2021 15:45
--- NOTE | 2021-01-14 16:00 | NUR ---
NURSE NOTES: Patient is intubated. Right IJ TLC was inserted.
--- NOTE | 2021-01-14 16:01 | NUR ---
NURSE NOTES: Increased levophed rate to 30mcg/min. Patient's BP 43/26. Will continue plan of care.
--- NOTE | 2021-01-14 16:41 | Diagnostic Imaging Report ---
Indication: Abdominal pain Technique: Lala-scale and duplex images of the upper abdomen were obtained Comparison: No comparison sonograms. Reference made to CT scan of the abdomen 01/13/2021 Findings: There is a large right pleural effusion. There is ascites fluid. The gallbladder fossa cannot be visualized and sonographic Rodriguez's sign could not be assessed. Common bile duct could not be visualized, although there is no gross biliary ductal dilatation. Gallbladder and bile ducts appear unremarkable on recent CT scan. No intrahepatic biliary ductal dilatation. Liver is atrophic, demonstrates surface nodularity and coarsened echogenicity. The left lobe could not be well demonstrated. The portal and hepatic veins are not well-visualized, due to patient heavy breathing/inability to hold breath. There does appear to be to and fro flow within the portal vein The liver mass described on recent CT scan could not be demonstrated due to the same limitations. Pancreas is incompletely visualized due to overlying bowel gas, visualized portions are unremarkable. The spleen is enlarged, measuring 13.7 cm long axis dimension. Left kidney measures 8.9 cm in length. Right kidney measures 9.4 cm length. Both kidneys demonstrate normal echogenicity. There is no hydronephrosis. No focal abnormality . Abdominal aorta is partially obscured by bowel gas, visualized portions are non-aneurysmal . Grossly unremarkable inferior vena cava Impression: Very limited exam, as described, with nonvisualization of the gallbladder, common bile duct and portions of the pancreas, liver and abdominal aorta. Evidence of hepatic cirrhosis, also described on recent CT scan Large right pleural effusion. Moderate ascites Borderline splenomegaly
--- NOTE | 2021-01-14 17:04 | Diagnostic Imaging Report ---
Indication: Post intubation Technique: One view of the chest Comparison: 01/13/2021 Findings: Patient is rotated to the left. Large right pleural effusion again demonstrated. Borderline cardiomegaly. Mild interstitial congestion again noted. Interim endotracheal intubation, endotracheal tube tip projecting approximately 3 cm above the rangel in good position. Interim right jugular central venous catheter placement, tip projected at the level of the mid superior vena cava. The heart remains enlarged. Impression: Satisfactory endotracheal intubation Right jugular central line in good position. No radiographically evident complication. Large right pleural effusion also previously demonstrated
--- NOTE | 2021-01-14 17:10 | NUR ---
NURSE NOTES: Called Dr. Murphy and left message for F/U ABG results.
--- NOTE | 2021-01-14 17:29 | Emergency Room Report ---
History of Present Illness General Chief Complaint: Abdominal Pain Source: Patient, Medical Record, PMD Present Illness Allergies: Coded Allergies: CEPHALEXIN (Verified Allergy, Unknown, 01/13/21) COVID-19 Screening Contact w/high risk pt: No Experienced COVID-19 symptoms?: No COVID-19 Testing performed THEOLOGY TEACHER: No Nursing Documentation-PMH Past Medical History: No History, Except For Hx Hypertension: Yes Hx Diabetes: Yes Hx Cancer: Yes - liver Hx Gastrointestinal Problems: Yes - liver cirrosis Physical Exam Vital Signs Date Time Temp Pulse Resp B/P (MAP) Pulse Ox O2 Delivery O2 Flow Rate FiO2 01/13/21 10:40 97.0 56 14 129/58 (81) 96 Room Air 01/13/21 13:11 2.0 100 Procedures Central Line Central Line : Consent: Emergent Central Line Lumen: triple Maximal Sterile Barrier Tech: yes cap, yes mask, yes sterile gown, yes sterile gloves, yes large sterile sheet, yes hand hygiene, yes chlorhexidine prep No Max Barrier Tech Because: emergency insertion Central Line Postion: internal jugular (R) US Guided Line?: Yes Vessel visualized with U/S: Right Internal Jugular Ultrasound Findings: Collapsible Vessel, Vessel Patent, Color flow present, Visualize vessel puncture Complications: none Central Line Post Position: sutured, good blood return, position confirmed w/ CXR Attempts: One Patient Tolerated: Well Complications: None CPR/Code Blue CPR/Code Blue Narrative I was called to the bedside for CODE BLUE. When I arrived CPR was in progress. Please see separate code sheet for full details. Return of spontaneous regulation was achieved. Patient was intubated and central line emergently inserted and right IJ. Intubation Intubation : Consent: Emergent Intubation Method: orotracheal Tube Size (cm): 7.5 Breath Sounds after Intubation: equal Intubation Complications: no complications Post Intubation Xray: Yes Attempts: One Patient Tolerated: Well Complications: None Medical Decision Making Diagnostic Impression: Primary Impression: Liver failure Additional Impressions: Atrial fibrillation with RVR Pleural effusion associated with hepatic disorder Coagulopathy Leukocytosis Pancreatitis Renal insufficiency UTI (urinary tract infection) Last Vital Signs Date Time Temp Pulse Resp B/P (MAP) Pulse Ox O2 Delivery O2 Flow Rate FiO2 01/14/21 16:05 112 20 100 01/14/21 15:30 43/26 01/14/21 14:53 100 01/14/21 14:53 Bi-Pap 01/14/21 12:00 96.1 01/13/21 13:11 2.0 Disposition: ADMITTED INPATIENT Condition: Serious Referrals: NON PHYSICIAN (PCP) Wolf Fu M.D. Jan 14, 2021 17:29
--- NOTE | 2021-01-14 17:29 | NUR ---
NURSE NOTES: ABG results reported to Dr. Murphy voice mail- also made aware patient coded
--- NOTE | 2021-01-14 17:30 | NUR ---
NURSE NOTES: Bed bath given. Kept dry, clean and comfortable.
--- NOTE | 2021-01-14 17:40 | NUR ---
NURSE NOTES: Having visitor at this time. and daughter.
--- NOTE | 2021-01-14 17:40 | Cardiology Progress Note ---
Assessment/Plan Assessment/Plan [id number] nwo in sinus paf cva hx septic / hypotesnive lactic acidosis pleural effusion ascites renal isnuf jaundice hcc cirrhosis addition of pressor iv abx david peralta d/w id and rn ekg reviewed not a candiate for amiod metorpolol for hr controel dig for hr control poor prognosis Objective Last 24 Hour Vital Signs Date Time Temp Pulse Resp B/P (MAP) Pulse Ox O2 Delivery O2 Flow Rate FiO2 01/14/21 16:05 112 20 100 01/14/21 15:30 43/26 01/14/21 14:53 50 18 100 100 01/14/21 14:53 50 18 94 Bi-Pap 100 01/14/21 12:00 97 01/14/21 12:00 96.1 94 20 101/44 (63) 4 01/14/21 09:00 Room Air 01/14/21 08:29 134 114/63 01/14/21 08:00 96.6 134 20 114/63 (80) 99 01/14/21 08:00 148 01/14/21 07:24 136 01/14/21 04:56 97.1 145 18 105/57 (73) 96 01/14/21 04:00 137 01/14/21 04:00 97.6 130 20 138/85 (102) 99 01/14/21 00:00 69 01/14/21 00:00 98.8 69 18 130/76 (94) 96 01/13/21 21:00 Room Air 01/13/21 20:00 97.9 65 18 126/73 (90) 96 01/13/21 20:00 64 Intake and Output 01/13/21 01/14/21 19:00 07:00 Intake Total 550 ml Balance 550 ml Intake Oral 0 ml IV Total 550 ml # Voids 1 Laboratory Tests Test 01/14/21 05:43 01/14/21 08:40 01/14/21 13:21 01/14/21 17:09 White Blood Count 24.4 K/UL (4.8-10.8) #*H 22.6 K/UL (4.8-10.8) *H Red Blood Count 2.99 M/UL (4.70-6.10) L 3.12 M/UL (4.70-6.10) L Hemoglobin 9.3 G/DL (14.2-18.0) L 9.6 G/DL (14.2-18.0) L Hematocrit 30.4 % (42.0-52.0) L 32.5 % (42.0-52.0) L Mean Corpuscular Volume 102 FL (80-99) H 104 FL (80-99) H Mean Corpuscular Hemoglobin 31.2 PG (27.0-31.0) H 30.6 PG (27.0-31.0) Mean Corpuscular Hemoglobin Concent 30.6 G/DL (32.0-36.0) L 29.4 G/DL (32.0-36.0) L Red Cell Distribution Width 24.0 % (11.6-14.8) H 24.4 % (11.6-14.8) H Platelet Count 113 K/UL (150-450) L 120 K/UL (150-450) L Mean Platelet Volume 8.6 FL (6.5-10.1) 9.4 FL (6.5-10.1) Neutrophils (%) (Auto) % (45.0-75.0) % (45.0-75.0) Lymphocytes (%) (Auto) % (20.0-45.0) % (20.0-45.0) Monocytes (%) (Auto) % (1.0-10.0) % (1.0-10.0) Eosinophils (%) (Auto) % (0.0-3.0) % (0.0-3.0) Basophils (%) (Auto) % (0.0-2.0) % (0.0-2.0) Differential Total Cells Counted 100 100 Neutrophils % (Manual) 85 % (45-75) H 84 % (45-75) H Lymphocytes % (Manual) 4 % (20-45) L 4 % (20-45) L Monocytes % (Manual) 9 % (1-10) 10 % (1-10) Eosinophils % (Manual) 0 % (0-3) 0 % (0-3) Basophils % (Manual) 0 % (0-2) 0 % (0-2) Band Neutrophils 2 % (0-8) 2 % (0-8) Platelet Estimate Decreased L Decreased L Platelet Morphology Normal Normal Hypochromasia 1+ 1+ Anisocytosis 2+ 2+ Macrocytosis 1+ 1+ Erythrocyte Sedimentation Rate 101 MM/HR (0-20) H Prothrombin Time 23.0 SEC (9.30-11.50) H Prothromb Time International Ratio 2.2 (0.9-1.1) H Activated Partial Thromboplast Time 52 SEC (23-33) H D-Dimer 21.56 mg/L FEU (0.00-0.49) H Sodium Level 135 MMOL/L (136-145) L Potassium Level 5.2 MMOL/L (3.5-5.1) H Chloride Level 102 MMOL/L (98-107) Carbon Dioxide Level 17 MMOL/L (21-32) L Anion Gap 16 mmol/L (5-15) H Blood Urea Nitrogen 51 mg/dL (7-18) H Creatinine 2.5 MG/DL (0.55-1.30) H Estimat Glomerular Filtration Rate 26.7 mL/min (>60) Glucose Level 73 MG/DL (74-106) L Hemoglobin A1c 4.9 % (4.3-6.0) 5.3 % (4.3-6.0) Lactic Acid Level 6.30 mmol/L (0.4-2.0) H 7.80 mmol/L (0.66-2.22) H Calcium Level 8.7 MG/DL (8.5-10.1) Total Bilirubin 26.8 MG/DL (0.2-1.0) H Direct Bilirubin 19.5 MG/DL (0.0-0.3) H Aspartate Amino Transf (AST/SGOT) 204 U/L (15-37) H Alanine Aminotransferase (ALT/SGPT) 80 U/L (12-78) H Alkaline Phosphatase 659 U/L (46-116) H C-Reactive Protein, Quantitative 12.6 mg/dL (0.00-0.90) H Pro-B-Type Natriuretic Peptide 2317 pg/mL (0-125) H Total Protein 7.1 G/DL (6.4-8.2) Albumin 1.9 G/DL (3.4-5.0) L Globulin 5.2 g/dL Albumin/Globulin Ratio 0.4 (1.0-2.7) L Prealbumin Pending Triglycerides Level 134 MG/DL (30-150) Cholesterol Level < 50 MG/DL (< 200) LDL Cholesterol 23 mg/dL (<100) HDL Cholesterol 6 MG/DL (40-60) L Cholesterol/HDL Ratio (3.3-4.4) Amylase Level 1661 U/L (25-115) *H Lipase > 2000 U/L (73-393) H Thyroid Stimulating Hormone (TSH) 4.146 uiU/mL (0.358-3.740) Arterial Blood pH 7.063 (7.350-7.450) 7.073 (7.350-7.450) Arterial Blood Partial Pressure CO2 43.5 mmHg (35.0-45.0) 36.9 mmHg (35.0-45.0) Arterial Blood Partial Pressure O2 81.2 mmHg (75.0-100.0) 212.1 mmHg (75.0-100.0) H Arterial Blood HCO3 12.1 mmol/L (22.0-26.0) *L 10.5 mmol/L (22.0-26.0) *L Arterial Blood Oxygen Saturation 91.4 % (95-100) L 99.6 % (95-100) Arterial Blood Base Excess -17.0 (-2-2) *L -18.1 (-2-2) *L Pacheco Test Positive Positive Microbiology Date/Time Source Procedure Growth Status 01/13/21 14:24 Urine,Clean Catch Urine Culture - Preliminary NO GROWTH Resulted Dayne Vasquez MD Jan 14, 2021 17:40
--- NOTE | 2021-01-14 17:46 | NUR ---
RESPIRATORY NOTES Code blue called @1537. Chest compressions began by fellow RT, followed by myself. PT was promptly removed from bipap and was ventilated via ambubag. After successful ROSC, PT was intubated with 7.5 ETT @23cm lipline. PT was placed on ventilator - AC/VC 16 500 +5 100%. Will continue to monitor.
--- NOTE | 2021-01-14 17:55 | NUR ---
NURSE NOTES: Paged Dr. Murphy for follow-up ABG.
[2021-01-14] MEDS: Sodium Bicarbonate 100 ML in D5 1/2NS 1,000 ML IV SCH (17:56)
--- NOTE | 2021-01-14 18:00 | NUR ---
NURSE NOTES: Changed right IJ dressing.
--- NOTE | 2021-01-14 18:02 | NUR ---
NURSE NOTES: Seen by Dr. Vasquez and assessed patient. EKG done and informed Dr. Vasquez. Ordered Dewey for SBP>90. Will continue plan of care.
--- NOTE | 2021-01-14 18:15 | NUR ---
NURSE NOTES: Seen by Dr. Wyatt and assessed patient. Ordered COVID test. Will follow up.
[2021-01-14] MEDS: Phenylephrine 100 MG in D5W 240 ML IV SCH (18:42)
--- NOTE | 2021-01-14 18:42 | NUR ---
NURSE NOTES: Started phenylephrine @ 200mcg/min. BP 73/13. Will continue to monitor.
--- NOTE | 2021-01-14 18:48 | Infectious Diseases Prog Note ---
Assessment/Plan Assessment/Plan Full consult dictated: sepsis, uti liver ca leukocytosis ? pna vancomycin and zosyn f/u on cultures, labs and chest x-ray covid testing poor prognosis Subjective Allergies: Coded Allergies: CEPHALEXIN (Verified Allergy, Unknown, 01/13/21) Objective Last 24 Hour Vital Signs Date Time Temp Pulse Resp B/P (MAP) Pulse Ox O2 Delivery O2 Flow Rate FiO2 01/14/21 18:42 85 73/13 01/14/21 18:21 65/25 01/14/21 17:25 80 01/14/21 16:05 112 20 100 01/14/21 15:30 43/26 01/14/21 14:53 50 18 100 100 01/14/21 14:53 50 18 94 Bi-Pap 100 01/14/21 12:00 97 01/14/21 12:00 96.1 94 20 101/44 (63) 4 01/14/21 09:00 Room Air 01/14/21 08:29 134 114/63 01/14/21 08:00 96.6 134 20 114/63 (80) 99 01/14/21 08:00 148 01/14/21 07:24 136 01/14/21 04:56 97.1 145 18 105/57 (73) 96 01/14/21 04:00 137 01/14/21 04:00 97.6 130 20 138/85 (102) 99 01/14/21 00:00 69 01/14/21 00:00 98.8 69 18 130/76 (94) 96 01/13/21 21:00 Room Air 01/13/21 20:00 97.9 65 18 126/73 (90) 96 01/13/21 20:00 64 Height (Feet): 5 Height (Inches): 7.00 Weight (Pounds): 175 Microbiology Date/Time Source Procedure Growth Status 01/13/21 14:24 Urine,Clean Catch Urine Culture - Preliminary NO GROWTH Resulted Laboratory Tests Test 01/14/21 05:43 01/14/21 08:40 01/14/21 13:21 01/14/21 17:09 White Blood Count 24.4 K/UL (4.8-10.8) #*H 22.6 K/UL (4.8-10.8) *H Red Blood Count 2.99 M/UL (4.70-6.10) L 3.12 M/UL (4.70-6.10) L Hemoglobin 9.3 G/DL (14.2-18.0) L 9.6 G/DL (14.2-18.0) L Hematocrit 30.4 % (42.0-52.0) L 32.5 % (42.0-52.0) L Mean Corpuscular Volume 102 FL (80-99) H 104 FL (80-99) H Mean Corpuscular Hemoglobin 31.2 PG (27.0-31.0) H 30.6 PG (27.0-31.0) Mean Corpuscular Hemoglobin Concent 30.6 G/DL (32.0-36.0) L 29.4 G/DL (32.0-36.0) L Red Cell Distribution Width 24.0 % (11.6-14.8) H 24.4 % (11.6-14.8) H Platelet Count 113 K/UL (150-450) L 120 K/UL (150-450) L Mean Platelet Volume 8.6 FL (6.5-10.1) 9.4 FL (6.5-10.1) Neutrophils (%) (Auto) % (45.0-75.0) % (45.0-75.0) Lymphocytes (%) (Auto) % (20.0-45.0) % (20.0-45.0) Monocytes (%) (Auto) % (1.0-10.0) % (1.0-10.0) Eosinophils (%) (Auto) % (0.0-3.0) % (0.0-3.0) Basophils (%) (Auto) % (0.0-2.0) % (0.0-2.0) Differential Total Cells Counted 100 100 Neutrophils % (Manual) 85 % (45-75) H 84 % (45-75) H Lymphocytes % (Manual) 4 % (20-45) L 4 % (20-45) L Monocytes % (Manual) 9 % (1-10) 10 % (1-10) Eosinophils % (Manual) 0 % (0-3) 0 % (0-3) Basophils % (Manual) 0 % (0-2) 0 % (0-2) Band Neutrophils 2 % (0-8) 2 % (0-8) Platelet Estimate Decreased L Decreased L Platelet Morphology Normal Normal Hypochromasia 1+ 1+ Anisocytosis 2+ 2+ Macrocytosis 1+ 1+ Erythrocyte Sedimentation Rate 101 MM/HR (0-20) H Prothrombin Time 23.0 SEC (9.30-11.50) H Prothromb Time International Ratio 2.2 (0.9-1.1) H Activated Partial Thromboplast Time 52 SEC (23-33) H D-Dimer 21.56 mg/L FEU (0.00-0.49) H Sodium Level 135 MMOL/L (136-145) L Potassium Level 5.2 MMOL/L (3.5-5.1) H Chloride Level 102 MMOL/L (98-107) Carbon Dioxide Level 17 MMOL/L (21-32) L Anion Gap 16 mmol/L (5-15) H Blood Urea Nitrogen 51 mg/dL (7-18) H Creatinine 2.5 MG/DL (0.55-1.30) H Estimat Glomerular Filtration Rate 26.7 mL/min (>60) Glucose Level 73 MG/DL (74-106) L Hemoglobin A1c 4.9 % (4.3-6.0) 5.3 % (4.3-6.0) Lactic Acid Level 6.30 mmol/L (0.4-2.0) H 7.80 mmol/L (0.66-2.22) H Calcium Level 8.7 MG/DL (8.5-10.1) Total Bilirubin 26.8 MG/DL (0.2-1.0) H Direct Bilirubin 19.5 MG/DL (0.0-0.3) H Aspartate Amino Transf (AST/SGOT) 204 U/L (15-37) H Alanine Aminotransferase (ALT/SGPT) 80 U/L (12-78) H Alkaline Phosphatase 659 U/L (46-116) H C-Reactive Protein, Quantitative 12.6 mg/dL (0.00-0.90) H Pro-B-Type Natriuretic Peptide 2317 pg/mL (0-125) H Total Protein 7.1 G/DL (6.4-8.2) Albumin 1.9 G/DL (3.4-5.0) L Globulin 5.2 g/dL Albumin/Globulin Ratio 0.4 (1.0-2.7) L Prealbumin Pending Triglycerides Level 134 MG/DL (30-150) Cholesterol Level < 50 MG/DL (< 200) LDL Cholesterol 23 mg/dL (<100) HDL Cholesterol 6 MG/DL (40-60) L Cholesterol/HDL Ratio (3.3-4.4) Amylase Level 1661 U/L (25-115) *H Lipase > 2000 U/L (73-393) H Thyroid Stimulating Hormone (TSH) 4.146 uiU/mL (0.358-3.740) Arterial Blood pH 7.063 (7.350-7.450) 7.073 (7.350-7.450) Arterial Blood Partial Pressure CO2 43.5 mmHg (35.0-45.0) 36.9 mmHg (35.0-45.0) Arterial Blood Partial Pressure O2 81.2 mmHg (75.0-100.0) 212.1 mmHg (75.0-100.0) H Arterial Blood HCO3 12.1 mmol/L (22.0-26.0) *L 10.5 mmol/L (22.0-26.0) *L Arterial Blood Oxygen Saturation 91.4 % (95-100) L 99.6 % (95-100) Arterial Blood Base Excess -17.0 (-2-2) *L -18.1 (-2-2) *L Pacheco Test Positive Positive Current Medications Medications (Trade) Dose Ordered Sig/Vijay Route PRN Reason Start Time Stop Time Status Last Admin Dose Admin Chlorhexidine Gluconate (Kiana-Hex 2%) 1 applic DAILY@2000 TOPIC 01/14/21 20:00 04/14/21 19:59 Dextrose (Dextrose 50%) 25 ml Q30M PRN IV Hypoglycemia 01/14/21 07:30 04/14/21 07:29 Dextrose (Dextrose 50%) 50 ml Q30M PRN IV Hypoglycemia 01/14/21 07:30 04/14/21 07:29 01/14/21 11:42 Diphenhydramine HCl (Benadryl) 25 mg Q6H PRN ORAL Itching/Pruritis 01/13/21 16:45 02/12/21 16:44 Famotidine (Pepcid I.v.) 20 mg Q12HR IVP 01/14/21 16:15 02/13/21 16:14 Insulin Aspart (NovoLOG) BEFORE MEALS AND HS SUBQ 01/14/21 11:30 04/14/21 11:29 Lactulose (Cephulac) 20 gm THREE TIMES A DAY ORAL 01/14/21 09:00 02/13/21 08:59 01/14/21 08:51 Lorazepam (Ativan) 1 mg Q4H PRN ORAL For Anxiety 01/13/21 16:45 01/20/21 16:44 01/14/21 03:40 Metoprolol Tartrate (Lopressor) 25 mg Q12HR ORAL 01/14/21 09:00 04/14/21 08:59 01/14/21 08:29 Morphine Sulfate (Morphine Sulfate) 2 mg Q3H PRN IVP Moderate Pain (Pain Scale 4-6) 01/13/21 16:45 01/20/21 16:44 01/14/21 02:59 Norepinephrine Bitartrate 250 ml @ 15 mls/hr Q24H IV 01/14/21 15:28 01/17/21 15:27 01/14/21 18:21 Ondansetron HCl (Zofran) 4 mg Q6H PRN IVP Nausea & Vomiting 01/13/21 16:45 02/12/21 16:44 Pantoprazole (Protonix) 40 mg EVERY 12 HOURS ORAL 01/14/21 21:00 02/13/21 20:59 Phenylephrine HCl 100 mg/Dextrose 250 ml @ 0 mls/hr Q24H IV 01/14/21 18:00 01/17/21 17:59 01/14/21 18:42 Piperacillin Sod/ Tazobactam Sod 3.375 gm/Sodium Chloride 110 ml @ 27.5 mls/hr EVERY 8 HOURS IVPB 01/14/21 10:00 01/19/21 09:59 01/14/21 11:24 Rifaximin (Xifaxan) 550 mg EVERY 12 HOURS ORAL 01/14/21 09:00 01/21/21 08:59 01/14/21 08:51 Sodium Bicarbonate 100 ml/Dextrose/ Sodium Chloride 1,100 ml @ 75 mls/hr [id number] IV 01/14/21 17:00 02/13/21 16:59 01/14/21 17:56 Temazepam (Restoril) 15 mg DAILYPRN PRN ORAL Insomnia 01/13/21 16:45 01/20/21 16:44 Vancomycin HCl ([facility] pharmacy to dose) 1 ea DAILY PRN MISC Per rx protocol 01/14/21 08:00 02/13/21 07:59 Kike Ramirez MD Jan 14, 2021 18:48
--- NOTE | 2021-01-14 19:29 | Consultation ---
DATE OF CONSULTATION: 01/14/2021 CRITICAL CARE CARDIOLOGY CONSULTATION CONSULTING PHYSICIAN: Dayne Vasquez MD REASON FOR CRITICAL CARE CONSULTATION: Hypertension, atrial fibrillation with rapid ventricular response. HISTORY OF PRESENT ILLNESS: This is a very unfortunate 60-year-old gentleman with history of multiple medical problems as delineated below. The patient has recently been hospitalized at [facility], was subsequently discharged and presented to the emergency room at [facility] with chief complaint of total body pain. He was jaundiced and was discharged on Dilaudid. It is not clear whether he was actually receiving the Dilaudid or not. The emergency room physician does indicate there is a question whether patient was discharged to hospice that is apparently hospice or not. Nevertheless, he denied apparently any fevers or chills and he had some loose stools without passing blood or melena. He felt nauseated and denied vomiting or coffee-grounds emesis. The patient denied any nonproductive cough. He has not finished COVID test at the time of evaluation by the emergency room physician. PAST MEDICAL HISTORY: According to the chart is positive for history of cerebrovascular accident 2019, paroxysmal episodes of atrial fibrillation, alcoholic liver cirrhosis with hepatocellular carcinoma in 2017, , history of IA, intra-arterial chemotherapy, but nevertheless progression of disease was noted, not felt to be transplant candidate, not felt to be surgical candidate. He is status post some chemotherapy agent, which was held in the setting of elevated liver function tests. He was noted to have a perinephric abscess and a perinephric drainage that was subsequently removed. There was indication here in the chart that the patient was made DNR comfort care. He does have a history of cirrhosis of the liver with decompensation, history of atrial fibrillation with rapid ventricular response, tachycardiac event, history of perinephric abscess, pyelonephritis. He does have history of diabetes mellitus as well as dysarthria, hemorrhagic stroke, obesity, and hyperlipidemia. ALLERGIES: To cephalexin that caused him to be swollen. REVIEW OF SYSTEMS: A couple was obtained, was otherwise unremarkable. PHYSICAL EXAMINATION: The patient has been admitted to the hospital. He has not had his COVID testing yet and remains as person under investigation. Patient was noted in the intensive care unit after initial discussion for pressor administration. Patient is in the intensive care unit and is now in isolation and now has been intubated and has been started on Levophed, which he has not been responsive to because of hypotension. HEENT: His exam readings per other physicians had shown him to be jaundiced, mild distress, bilateral scleral icterus, dry mucous membranes. LUNGS: Clear. Normal breath sounds were noted. CARDIAC: Tachycardiac. Edema of the lower extremities were noted. ABDOMEN: Soft. No guarding. No rebound tenderness. Decreased bowel sounds. Overweight. There was apparently reported no CVA tenderness. SKIN: Warm, dry, and jaundiced. LABORATORY DATA: Laboratory values that were obtained. White count yesterday was 14, increased to 24.4, now 22.6, hemoglobin 8.9, subsequently 9.6, platelet count of 122. Blood gases, pH of 7.06, pCO2 43, pO2 of 81, and bicarb of 97%. Sodium is 135, potassium 5.2, chloride 102, bicarb 17, BUN 51, creatinine 2.5, and a glucose of 73. Lactic acid of 6.3 subsequently, most recently was 7.8. Bilirubin 26 total, direct of 20, AST of 204, ALT of 80, alkaline phosphatase of 659. CRP of 12.6, elevated. ProBNP was 2300. Amylase of 1661. Triglycerides of 134. Lipase greater than 2000. TSH of 4.16. His coags INR of 1.8 yesterday, 2.2 today and PTT of 52. D-dimer elevated at 21.5. Urinalysis shows positive nitrites, 3+ leukocyte esterase, 2 to 4 rbc's, too numerous to count wbc's. Tox screen, serum alcohol was less than 1.3. His imaging has shown a chest x-ray that was performed latest at 1600 today showed a satisfactory position of . Right jugular line in good position. No evidence of complication. Large right-sided pleural effusion that was noted even at the time of admission. Abdominal ultrasound was performed showing very limited, nonvisualization of the gallbladder, common duct portion of the pancreas, evidence of hepatic cirrhosis, large right pleural effusion, moderate ascites, splenomegaly was noted. ASSESSMENT AND PLAN: 1. Septic shock. 2. Hypotension. 3. Respiratory failure. 4. Cirrhosis of the liver. 5. Hepatocellular carcinoma, failed therapy. 6. Esophageal and other cirrhosis. 7. Atrial fibrillation with rapid ventricular response. 8. Renal insufficiency. 9. Chemical pancreatitis. 10. Renal failure. 11. Jaundice. 12. Altered mental status. This patient is admitted to the hospital as noted above. The patient has a temperature that is actually hypothermic at 96.1 recorded in the emergency room. He is seen in urgent cardiac consultation. The patient is septic, likely hypothermic based on temperature here, significant white count elevation. He had recently had hospitalization with perinephric abscess. Multiple sources of possibly of sepsis do exist in this gentleman with cirrhosis, perinephric abscess, ascites, right-sided pleural effusion, all of which needs to be addressed. Intravenous antibiotics may be necessary. Dr. Ramirez is seeing the patient in consultation from Infectious Disease and I did discuss with him. The patient's blood pressure remains low. He was transferred to intensive care unit to start on pressors. The pressors, Levophed has not been effective. Dewey-Synephrine is being administered. The patient will be kept off anticoagulation because of significant coagulopathy to begin with, likely from cirrhosis and EKG was performed. The EKG was reviewed by myself. There is a chart indicating that the patient should be possible being released for comfort care at home, but that does not appear to be clear. We will leave that decision to Dr. Diop to address with the patient's family members however. The patient's prognosis appears to be relatively poor in light of the fact that he has multiple problems. Pressors will be increased as needed and the patient will likely require treatment of hepatic encephalopathy in the future if hemodynamically becomes stabilized somehow. Pleural effusion may need to be addressed with thoracentesis for both diagnostic and therapeutic purposes. Pulmonary consultation may be necessary. Critical care cardiology consultation duration of 50 minutes. Dayne Vasquez M.D. DR: NOBLE JOB#: [id number] CC:
[2021-01-14] MEDS ORDERED: Vasopressin 100 UNITS in NS 95 ML IV SCH (19:30)
[2021-01-14] MEDS ORDERED: Dyna-Hex 2% Top Sol 2oz TOPIC SCH (20:00)
--- NOTE | 2021-01-14 20:30 | NUR ---
NURSE NOTES: Patient noted to be pale, lips are very white. CBC stat ordered.
[2021-01-14 20:57] LABS: HEMATOCRIT 17.8 % (42.0-52.0); MEAN CORPUSCULAR VOLUME 108 FL (80-99); PLATELET COUNT 71 K/UL (150-450); RED BLOOD COUNT 1.65 M/UL (4.70-6.10); RED CELL DISTRIBUTION WIDTH 25.1 % (11.6-14.8); WHITE BLOOD COUNT 15.9 K/UL (4.8-10.8)
--- NOTE | 2021-01-14 20:59 | Consultation ---
DATE OF CONSULTATION: 01/14/2021 INFECTIOUS DISEASE CONSULT ATTENDING PHYSICIAN: Gen Diop M.D. REFERRING PHYSICIAN: Gen Diop M.D. REASON FOR CONSULTATION: Sepsis, elevated white count, UTI, liver failure, pancreatitis, possible pneumonia. The patient's chief complaint coming to the hospital is liver failure, respiratory distress, failure, UTI. HISTORY OF PRESENT ILLNESS: This is a 60-year-old male who comes into [facility] with multiple issues including respiratory failure, pancreatitis, liver failure, liver cancer, UTI. The patient currently is intubated on a vent. Infectious disease consultation is requested for antibiotic management. The patient is septic with elevated white count. The patient is on vancomycin and Zosyn. The patient cannot add to his history. The patient is not on pressors currently, but is on a vent. Case discussed with RN at the bedside in the ICU. REVIEW OF SYSTEMS: The patient could not add to review of systems. He is sedated, on a vent. He is not on pressors currently, he is in respiratory failure. CARDIAC: No pressors. GASTROINTESTINAL: No nausea, vomiting, diarrhea. GENITOURINARY: He has no Ordoñez currently. They will place a Ordoñez, I believe. PULMONARY: On a vent. Rest of review of systems is limited. PAST MEDICAL HISTORY: The patient has a past medical history of hypertension, history of hypercholesteremia or dyslipidemia or hyperlipidemia, history of liver failure, liver cancer. He has a history of renal abscess in the past and previous hospitalizations, ascites, jaundice. He has pancreatitis. He has a history of cirrhosis, atrial fibrillation, perinephric abscess, UTI, pyelonephritis. ALLERGIES: He has allergies to cephalexin, tolerating Zosyn currently. SOCIAL HISTORY: Negative for smoking, alcohol, or drug abuse. FAMILY HISTORY: Noncontributory. MEDICATIONS: Noted and reconciled. He is currently on Zosyn, vancomycin. He is on phenylephrine, pantoprazole, famotidine, IV fluids, metoprolol, lactulose, rifaximin. Outside medications were noted and reconciled. PHYSICAL EXAMINATION: VITAL SIGNS: Temperature 96.1, pulse rate 112, respiratory rate 20, blood pressure 65/25, FiO2 80%, saturation 94%. He is now on a ventilator. HEAD AND NECK: Orally intubated. Normocephalic. HEART: Regular. No gallop or murmur. ABDOMEN: Looks like somewhat distended. LUNGS: Bilateral rhonchi and possible rales. SKIN: No rash. NEUROLOGIC: Sedated. GENITOURINARY: No Ordoñez currently. EXTREMITIES: No cellulitis in the extremities. LABORATORY DATA: Creatinine 2.5. Sodium 135, total bilirubin 26.8. LFTs, AST is 204, ALT is 80, total bilirubin 26.8. C-reactive protein 12.6. Amylase is 1661, lipase is greater than 2000. White count 22.6, hemoglobin 9.6, platelet count 120. Urinalysis had yrq-[id number]-yn-count white blood cells, positive nitrite. Cultures, urine culture negative to date. Blood cultures are pending. COVID testing is pending. IMAGING STUDIES: Chest x-ray showed large right effusion. Abdominal ultrasound was limited. Nonvisualization of the gallbladder. CT scan of the abdomen and pelvis showed hepatic cirrhosis, mass consistent with liver cancer, probably related with history of liver cancer, portal hypertension, ascites. Report was noted. ASSESSMENT AND PLAN: 1. The patient has sepsis, elevated white count, UTI, possible aspiration, healthcare-acquired pneumonia versus community-acquired pneumonia. The patient has liver failure. The patient has pancreatitis. The patient has liver cancer. The patient has ascites. The patient has history of perinephric abscess and pyelonephritis. UA is positive, looks like UTI, but urine culture is negative. The patient's prognosis is extremely poor. At this time, we will continue vancomycin and Zosyn for sepsis, elevated white count, UTI, possible pneumonia, and possible GI sepsis. Check cultures, labs, chest x-ray. Again, prognosis is poor. 2. COVID testing was done. 3. Anemia. 4. Liver failure. 5. Cirrhosis. 6. Pancreatitis. Continue supportive care. 7. Renal failure. 8. History of hypertension. 9. History of dyslipidemia. 10. Poor prognosis. 11. Continue treatment per primary consultants. 12. Allergies to cephalexin, tolerated Zosyn. 13. Social history is negative. 14. Family history is noncontributory. 15. MAR is noted. 16. Discussed case with . Kike Ramirez M.D. DR: SELIN JOB#: [id number] CC:
--- NOTE | 2021-01-14 21:00 | NUR ---
NURSE NOTES: Spoke with Dr. Ross regarding patients hemoglobin of 5.2, orders received for 2 units of PRBC now and follow up with CBC after transfusion and give 1 X PRBC if hemoglobin remains less than 7.0.
[2021-01-14 21:01] LABS: HEMOGLOBIN 5.2 G/DL (14.2-18.0)
--- NOTE | 2021-01-14 21:47 | NUR ---
NURSE NOTES: Patient had episode of bradycardia in the 40s, patient eventually came back to NSR in the 80s
--- NOTE | 2021-01-14 22:00 | NUR ---
NURSE NOTES: Patients Son and other family members at bedside. Patients son Sam Mccarthy informed this nurse that patients family has come to the decision to make their father Kush Mccarthy (the patient) DNR status. Will respect families decision and inform Attending physician.
--- NOTE | 2021-01-14 23:00 | NUR ---
NURSE NOTES: 1st unit of PRBC hung. Vitals are stable. Suctioned patient, no sections noted./
--- NOTE | 2021-01-14 23:31 | NUR ---
NURSE NOTES: Called Dr. Diop and informed him regarding families decision to make patient DNR.
[2021-01-15] VITALS (39 sets, daily range): BP systolic 55–124; BP diastolic 31–71
--- NOTE | 2021-01-15 00:30 | NUR ---
NURSE NOTES: 1st PRBC finish infusing, no adverse reactions observed. Patient remains on 3 pressors max rate on all. Will continue to monitor
--- NOTE | 2021-01-15 00:40 | NUR ---
NURSE NOTES: 2nd PRBC started. Patient vitals are stable at this time, afebrile.
--- NOTE | 2021-01-15 02:41 | NUR ---
NURSE NOTES: 2nd PRBC finished infusing. No adverse reaction observed. No gag reflex noted, little to no sputum obtained during suctioning.
--- NOTE | 2021-01-15 04:00 | NUR ---
NURSE NOTES: Patients temperature is 93.0F rectal source, heating blanket applied. Patient remains on pressors at this time, sponge bath given and labs drawn.
[2021-01-15 04:26] LABS: HEMATOCRIT 28.6 % (42.0-52.0); HEMOGLOBIN 8.5 G/DL (14.2-18.0); MEAN CORPUSCULAR VOLUME 101 FL (80-99); PLATELET COUNT 62 K/UL (150-450); RED BLOOD COUNT 2.83 M/UL (4.70-6.10); RED CELL DISTRIBUTION WIDTH 25.2 % (11.6-14.8); WHITE BLOOD COUNT 15.1 K/UL (4.8-10.8)
[2021-01-15 04:48] LABS: AMMONIA 78 umol/L (11-32)
[2021-01-15] MEDS: Piperacillin/Tazobactam 3.375 GM in NS 110 ML IVPB SCH ×2 (04:59→13:17)
[2021-01-15] MEDS: NovoLOG Insulin Flexpen SUBQ SCH ×3 (05:00→16:30)
--- NOTE | 2021-01-15 05:00 | NUR ---
NURSE NOTES: 12 lead EKG performed as ordered and placed in chart, will continue to monitor.
[2021-01-15 05:22] LABS: GAMMA GLUTAMYL TRANSPEPTIDASE 47 U/L (5-85); LACTATE DEHYDROGENASE 2906 U/L (81-234); PHOSPHORUS 8.8 MG/DL (2.5-4.9)
[2021-01-15 05:31] LABS: FERRITIN 446 NG/ML (8-388)
[2021-01-15 05:36] LABS: AMYLASE 1199 U/L (25-115)
[2021-01-15 05:38] LABS: ALBUMIN 2.1 G/DL (3.4-5.0); ALBUMIN/GLOBULIN RATIO 0.7 (1.0-2.7); BILIRUBIN,TOTAL 21.7 MG/DL (0.2-1.0); CALCIUM 7.7 MG/DL (8.5-10.1); CREATININE 2.9 MG/DL (0.55-1.30); POTASSIUM 5.9 MMOL/L (3.5-5.1)
[2021-01-15 05:41] LABS: BILIRUBIN,DIRECT 13.1 MG/DL (0.0-0.3)
[2021-01-15 05:53] LABS: IRON 50 ug/dL (50-175); TOTAL IRON BINDING CAPACITY 73 ug/dL (250-450)
[2021-01-15] MEDS: Phenylephrine 100 MG in D5W 240 ML IV SCH ×4 (06:00→13:16)
[2021-01-15] MEDS: Sodium Bicarbonate 100 ML in D5 1/2NS 1,000 ML IV SCH (06:00)
--- NOTE | 2021-01-15 06:00 | NUR ---
NURSE NOTES: PCR swabbed taken and sent to lab. Patient repositioned and oral care given, heating measures ongoing. Gag absent. Pressors ongoing. NSR on monitor
[2021-01-15 06:04] LABS: % IRON SATURATION 68 % (15-50)
[2021-01-15] MEDS ORDERED: Phytonadione 10 mg/mL 1ml amp SUBQ SCH (06:30)
--- NOTE | 2021-01-15 06:33 | Consultation ---
History of Present Illness General Chief Complaint: Abdominal Pain Present Illness Allergies: Coded Allergies: CEPHALEXIN (Verified Allergy, Unknown, 01/13/21) Medication History Scheduled Atorvastatin Calcium* (Atorvastatin Calcium*), 40 MG ORAL BEDTIME, (Reported) Metoprolol Tartrate* (Metoprolol Tartrate*), 25 MG ORAL EVERY 12 HOURS, (Reported) Scheduled PRN Ondansetron (Zofran), 4 MG ORAL Q8HR PRN for Nausea & Vomiting, (Reported) Patient History Healthcare decision maker Resuscitation status Advanced Directive on File Physical Exam Last 24 Hour Vital Signs Date Time Temp Pulse Resp B/P (MAP) Pulse Ox O2 Delivery O2 Flow Rate FiO2 01/15/21 06:00 100/65 01/15/21 06:00 82 84/59 01/15/21 06:00 81 30 93/55 (68) 100 01/15/21 05:45 81 23 98/67 (77) 100 01/15/21 05:30 82 27 93/68 (76) 100 01/15/21 05:00 82 19 84/59 (67) 99 01/15/21 05:00 84/59 01/15/21 04:30 83 25 83/57 (66) 97 01/15/21 04:00 60 01/15/21 04:00 102/65 01/15/21 04:00 93.0 82 29 106/56 (73) 96 01/15/21 04:00 93 01/15/21 04:00 Mechanical Ventilator 01/15/21 03:30 86 19 90/67 (75) 98 01/15/21 03:23 87 16 60 01/15/21 03:00 88/56 01/15/21 03:00 87 48 104/64 (77) 98 01/15/21 02:30 86 35 102/66 (78) 98 01/15/21 02:00 106/70 01/15/21 02:00 91 37 102/70 (81) 98 01/15/21 01:30 89 36 105/62 (76) 98 01/15/21 01:00 100/65 01/15/21 01:00 89 31 99/70 (80) 98 01/15/21 00:30 89 31 99/71 (80) 98 01/15/21 00:00 89 29 100/51 (67) 97 01/15/21 00:00 60 01/15/21 00:00 97/69 01/15/21 00:00 91 106/70 01/15/21 00:00 Mechanical Ventilator 01/14/21 23:30 90 26 91/53 (66) 100 01/14/21 23:14 91 16 80 01/14/21 23:00 98/58 01/14/21 23:00 90 36 98/55 (69) 100 01/14/21 22:45 82 31 101/58 (72) 99 01/14/21 22:30 91 29 96/60 (72) 100 01/14/21 22:15 91 18 97/65 (76) 100 01/14/21 22:00 90 20 98/51 (67) 100 01/14/21 22:00 98/51 01/14/21 21:45 93 16 106/65 (79) 100 01/14/21 21:30 87 31 93/57 (69) 100 01/14/21 21:15 86 16 86/50 (62) 100 01/14/21 21:00 80/46 01/14/21 21:00 87 33 80/46 (57) 100 01/14/21 20:45 85 33 80/21 (40) 100 01/14/21 20:36 73/13 01/14/21 20:30 89 30 84/52 (63) 100 01/14/21 20:15 92 16 100/70 (80) 100 01/14/21 20:00 89 01/14/21 20:00 95.0 91 19 89/55 (66) 100 01/14/21 20:00 Mechanical Ventilator 01/14/21 20:00 80 01/14/21 19:51 92 31 81/55 (64) 100 01/14/21 19:45 92 34 72/42 (52) 100 01/14/21 19:30 93 37 88/56 (67) 100 01/14/21 19:29 94 16 80 01/14/21 19:26 85 73/13 01/14/21 19:21 94 30 101/58 (72) 100 01/14/21 19:20 94 30 88/55 (66) 100 01/14/21 19:15 91 32 99/70 (80) 100 01/14/21 19:00 83 25 89/57 (68) 100 01/14/21 18:45 83 25 89/57 (68) 100 01/14/21 18:42 85 73/13 01/14/21 18:30 87 30 73/13 (33) 100 21 18:21 65/25 21 18:15 90 31 65/25 (38) 100 01/14/21 18:00 93 33 75/36 (49) 100 01/14/21 17:45 96 30 85/42 (56) 100 01/14/21 17:30 98 30 88/62 (71) 100 01/14/21 17:25 80 01/14/21 17:15 91 18 78/46 (57) 100 01/14/21 17:00 98 21 70/55 (60) 100 01/14/21 16:49 99 22 70/51 (57) 100 01/14/21 16:45 102 22 73/50 (58) 97 01/14/21 16:30 106 23 82/68 (73) 97 01/14/21 16:20 111 33 123/80 (94) 95 01/14/21 16:10 116 34 143/75 (97) 63 01/14/21 16:05 112 20 100 01/14/21 16:00 Mechanical Ventilator 01/14/21 16:00 96.3 57 29 170/109 (129) 93 01/14/21 15:50 97 22 43/26 (32) 93 01/14/21 15:40 113 55 118/84 (95) 93 01/14/21 15:30 43/26 01/14/21 15:30 47 20 56/23 (34) 87 01/14/21 15:28 48 20 70/18 (35) 86 01/14/21 15:15 75 20 63/24 (37) 90 01/14/21 15:00 96.5 65 20 76/56 (63) 96 01/14/21 14:53 50 18 100 100 01/14/21 14:53 50 18 94 Bi-Pap 100 01/14/21 12:00 97 01/14/21 12:00 96.1 94 20 101/44 (63) 4 01/14/21 09:00 Room Air 01/14/21 08:29 134 114/63 01/14/21 08:00 96.6 134 20 114/63 (80) 99 01/14/21 08:00 148 01/14/21 07:24 136 Intake and Output 01/14/21 01/15/21 19:00 07:00 Intake Total 406.25 ml 1670.35 ml Output Total 30 ml 0 ml Balance 376.25 ml 1670.35 ml IV Total 406.25 ml 1670.35 ml Output Urine Total 30 ml 0 ml Laboratory Tests Test 01/14/21 08:40 01/14/21 13:21 01/14/21 17:09 01/14/21 20:15 White Blood Count 22.6 K/UL (4.8-10.8) *H 15.9 K/UL (4.8-10.8) H Red Blood Count 3.12 M/UL (4.70-6.10) L 1.65 M/UL (4.70-6.10) L Hemoglobin 9.6 G/DL (14.2-18.0) L 5.2 G/DL (14.2-18.0) Hematocrit 32.5 % (42.0-52.0) L 17.8 % (42.0-52.0) #L Mean Corpuscular Volume 104 FL (80-99) H 108 FL (80-99) H Mean Corpuscular Hemoglobin 30.6 PG (27.0-31.0) 31.9 PG (27.0-31.0) H Mean Corpuscular Hemoglobin Concent 29.4 G/DL (32.0-36.0) L 29.4 G/DL (32.0-36.0) L Red Cell Distribution Width 24.4 % (11.6-14.8) H 25.1 % (11.6-14.8) H Platelet Count 120 K/UL (150-450) L 71 K/UL (150-450) L Mean Platelet Volume 9.4 FL (6.5-10.1) 9.1 FL (6.5-10.1) Neutrophils (%) (Auto) % (45.0-75.0) % (45.0-75.0) Lymphocytes (%) (Auto) % (20.0-45.0) % (20.0-45.0) Monocytes (%) (Auto) % (1.0-10.0) % (1.0-10.0) Eosinophils (%) (Auto) % (0.0-3.0) % (0.0-3.0) Basophils (%) (Auto) % (0.0-2.0) % (0.0-2.0) Differential Total Cells Counted 100 100 Neutrophils % (Manual) 84 % (45-75) H 84 % (45-75) H Lymphocytes % (Manual) 4 % (20-45) L 3 % (20-45) L Monocytes % (Manual) 10 % (1-10) 4 % (1-10) Eosinophils % (Manual) 0 % (0-3) 0 % (0-3) Basophils % (Manual) 0 % (0-2) 0 % (0-2) Band Neutrophils 2 % (0-8) 9 % (0-8) H Platelet Estimate Decreased L Decreased L Platelet Morphology Normal Normal Hypochromasia 1+ 2+ Anisocytosis 2+ 3+ Macrocytosis 1+ 1+ Hemoglobin A1c 5.3 % (4.3-6.0) Lactic Acid Level 7.80 mmol/L (0.66-2.22) H Arterial Blood pH 7.063 (7.350-7.450) 7.073 (7.350-7.450) Arterial Blood Partial Pressure CO2 43.5 mmHg (35.0-45.0) 36.9 mmHg (35.0-45.0) Arterial Blood Partial Pressure O2 81.2 mmHg (75.0-100.0) 212.1 mmHg (75.0-100.0) H Arterial Blood HCO3 12.1 mmol/L (22.0-26.0) *L 10.5 mmol/L (22.0-26.0) *L Arterial Blood Oxygen Saturation 91.4 % (95-100) L 99.6 % (95-100) Arterial Blood Base Excess -17.0 (-2-2) *L -18.1 (-2-2) *L Pacheco Test Positive Positive Polychromasia 1+ Schistocytes Occasional Test 01/15/21 04:00 White Blood Count 15.1 K/UL (4.8-10.8) H Red Blood Count 2.83 M/UL (4.70-6.10) L Hemoglobin 8.5 G/DL (14.2-18.0) #L Hematocrit 28.6 % (42.0-52.0) #L Mean Corpuscular Volume 101 FL (80-99) H Mean Corpuscular Hemoglobin 30.2 PG (27.0-31.0) Mean Corpuscular Hemoglobin Concent 29.9 G/DL (32.0-36.0) L Red Cell Distribution Width 25.2 % (11.6-14.8) H Platelet Count 62 K/UL (150-450) L Mean Platelet Volume 7.9 FL (6.5-10.1) Neutrophils (%) (Auto) % (45.0-75.0) Lymphocytes (%) (Auto) % (20.0-45.0) Monocytes (%) (Auto) % (1.0-10.0) Eosinophils (%) (Auto) % (0.0-3.0) Basophils (%) (Auto) % (0.0-2.0) Prothrombin Time Pending Prothromb Time International Ratio Pending Activated Partial Thromboplast Time Pending Sodium Level 134 MMOL/L (136-145) L Potassium Level 5.9 MMOL/L (3.5-5.1) H Chloride Level 102 MMOL/L (98-107) Carbon Dioxide Level 11 MMOL/L (21-32) L Anion Gap 23 mmol/L (5-15) H Blood Urea Nitrogen 47 mg/dL (7-18) H Creatinine 2.9 MG/DL (0.55-1.30) H Estimat Glomerular Filtration Rate 22.5 mL/min (>60) Glucose Level 98 MG/DL (74-106) Uric Acid 7.9 MG/DL (2.6-7.2) H Calcium Level 7.7 MG/DL (8.5-10.1) L Phosphorus Level 8.8 MG/DL (2.5-4.9) H Magnesium Level 2.3 MG/DL (1.8-2.4) Iron Level 50 ug/dL (50-175) Total Iron Binding Capacity 73 ug/dL (250-450) L Percent Iron Saturation 68 % (15-50) H Unsaturated Iron Binding 23 ug/dL (112-346) L Ferritin 446 NG/ML (8-388) H Total Bilirubin 21.7 MG/DL (0.2-1.0) H Direct Bilirubin 13.1 MG/DL (0.0-0.3) H Gamma Glutamyl Transpeptidase 47 U/L (5-85) Aspartate Amino Transf (AST/SGOT) 5760 U/L (15-37) H Alanine Aminotransferase (ALT/SGPT) 792 U/L (12-78) H Alkaline Phosphatase 512 U/L (46-116) H Ammonia 78 umol/L (11-32) H Lactate Dehydrogenase 2906 U/L (81-234) H Troponin I 1.374 ng/mL (0.000-0.056) C-Reactive Protein, Quantitative 7.5 mg/dL (0.00-0.90) H Pro-B-Type Natriuretic Peptide 8891 pg/mL (0-125) H Total Protein 5.2 G/DL (6.4-8.2) L Albumin 2.1 G/DL (3.4-5.0) L Globulin 3.1 g/dL Albumin/Globulin Ratio 0.7 (1.0-2.7) L Amylase Level 1199 U/L (25-115) *H Lipase > 2000 U/L (73-393) H Alpha Fetoprotein Pending Vitamin B12 Level Pending Folate Pending Thyroid Stimulating Hormone (TSH) 2.382 uiU/mL (0.358-3.740) Random Vancomycin Level 20.6 ug/mL Hepatitis A IgM Antibody Pending Hepatitis B Surface Antigen Pending Hepatitis B Core IgM Antibody Pending Hepatitis C Antibody Pending Height (Feet): 5 Height (Inches): 7.00 Weight (Pounds): 175 Medications Current Medications Medications (Trade) Dose Ordered Sig/Vijay Route PRN Reason Start Time Stop Time Status Last Admin Dose Admin Chlorhexidine Gluconate (Kiana-Hex 2%) 1 applic DAILY@2000 TOPIC 01/14/21 20:00 04/14/21 19:59 01/14/21 20:01 Dextrose (Dextrose 50%) 25 ml Q30M PRN IV Hypoglycemia 01/14/21 07:30 04/14/21 07:29 Dextrose (Dextrose 50%) 50 ml Q30M PRN IV Hypoglycemia 01/14/21 07:30 04/14/21 07:29 01/14/21 11:42 Diphenhydramine HCl (Benadryl) 25 mg Q6H PRN ORAL Itching/Pruritis 01/13/21 16:45 02/12/21 16:44 Famotidine (Pepcid I.v.) 20 mg Q12HR IVP 01/14/21 16:15 02/13/21 16:14 Insulin Aspart (NovoLOG) BEFORE MEALS AND HS SUBQ 01/14/21 11:30 04/14/21 11:29 Lactulose (Cephulac) 20 gm THREE TIMES A DAY ORAL 01/14/21 09:00 02/13/21 08:59 01/14/21 08:51 Lorazepam (Ativan) 1 mg Q4H PRN ORAL For Anxiety 01/13/21 16:45 01/20/21 16:44 01/14/21 03:40 Metoprolol Tartrate (Lopressor) 25 mg Q12HR ORAL 01/14/21 09:00 04/14/21 08:59 01/14/21 08:29 Morphine Sulfate (Morphine Sulfate) 2 mg Q3H PRN IVP Moderate Pain (Pain Scale 4-6) 01/13/21 16:45 01/20/21 16:44 01/14/21 02:59 Norepinephrine Bitartrate 16 mg/ Dextrose 500 ml @ 0 mls/hr Q24H IV 01/14/21 20:15 01/17/21 20:14 01/15/21 05:00 Ondansetron HCl (Zofran) 4 mg Q6H PRN IVP Nausea & Vomiting 01/13/21 16:45 02/12/21 16:44 Pantoprazole (Protonix) 40 mg EVERY 12 HOURS ORAL 01/14/21 21:00 02/13/21 20:59 Phenylephrine HCl 100 mg/Dextrose 250 ml @ 0 mls/hr Q24H IV 01/14/21 18:00 01/17/21 17:59 01/15/21 06:00 Piperacillin Sod/ Tazobactam Sod 3.375 gm/Sodium Chloride 110 ml @ 27.5 mls/hr EVERY 8 HOURS IVPB 01/14/21 10:00 01/19/21 09:59 01/15/21 04:59 Rifaximin (Xifaxan) 550 mg EVERY 12 HOURS ORAL 01/14/21 09:00 01/21/21 08:59 01/14/21 08:51 Sodium Bicarbonate 100 ml/Dextrose/ Sodium Chloride 1,100 ml @ 75 mls/hr [id number] IV 01/14/21 17:00 02/13/21 16:59 01/15/21 06:00 Temazepam (Restoril) 15 mg DAILYPRN PRN ORAL Insomnia 01/13/21 16:45 01/20/21 16:44 Vancomycin HCl (Vanco pharmacy to dose) 1 ea DAILY PRN MISC Per rx protocol 01/14/21 08:00 02/13/21 07:59 Vasopressin 100 units/Sodium Chloride 100 ml @ 0 mls/hr Q24H IV 01/14/21 19:30 01/17/21 19:27 01/14/21 21:30 Assessment/Plan Assessment/Plan: Hematology Consultation REQ MD: Allyssa Diop RFC: Pancytopenia and liver mass DOS: 01/15/2021 HPI 60y old male, presents complaining of total body pain. He is also jaundiced. Apparently was recently discharged from the hospital. The pain throughout his body is severe. He was discharged on Dilaudid. Unknown whether he has been receiving this medication. He has a history of liver cancer. There is a suggestion that he was discharged to hospice. There is no clear documentation of this. However family contacted his private doctor and requested repeat evaluation and therefore he was brought to the emergency department. History of diabetes, hypertension and cirrhosis. Patient denies fevers or chills. Review of outside records reveal that he has had atrial fibrillation with rapid ventricular rate. Patient denies dysuria. He has had loose stools without passing any blood or melena. He is felt nauseated but denies vomiting. There is no coffee-ground or bloody vomitus. The patient has a nonproductive cough. He does not feel short of breath at this time. This was obtained from ER admission, but he coded yesterday and is on a vent. Coded Allergies: CEPHALEXIN (Verified Allergy, Unknown, 01/13/21) COVID-19 Screening Contact w/high risk pt: No Experienced COVID-19 symptoms?: No COVID-19 Testing performed AD COPY WRITER: No Patient History Past Medical History: see triage record, other - Varices, liver mass Past Surgical History: other - shunt Social History: Denies: smoking Social History Narrative With family Reviewed Nursing Documentation: PMH: Agreed; PSxH: Agreed Nursing Documentation-PMH Past Medical History: No History, Except For Hx Hypertension: Yes Hx Diabetes: Yes Hx Cancer: Yes - liver Hx Gastrointestinal Problems: Yes - liver cirrosis Review of Systems All Other Systems: negative except mentioned in HPI Physical Exam Sp02 EP Interpretation: reviewed, normal General: mild distress, other - Jaundiced in mild distress, Chronically Ill Eyes: bilateral eye PERRL, bilateral eye EOMI, bilateral eye scleral icterus Respiratory: lungs clear, normal breath sounds, ++vent Cardiovascular: tachycardia, edema Gastrointestinal: soft, no guarding, no rebound, tenderness, decreased bowel sounds, overweight Genitourinary: no CVA tenderness Musculoskeletal: back normal, no calf tenderness Neurologic: alert, oriented, DTRs symmetric, sensory intact, motor weakness - Diffuse Psychiatric: mood/affect normal Skin: warm/dry, jaundice Labs: reviewed Imaging: noted in emr Assessment and Recs # Liver cancer. The patient has ascites, CT 6.7 cm round exophytic mass arising from segment 4A of the liver. This is presumably related to stated clinical history of liver cancer. Surgical clips are seen adjacent to this mass. --> known history --> in prior was on hospice --> tumor markers order as prn # Leukocytosis due to UTI, possible aspiration, healthcare-acquired pneumonia versus community-acquired pneumonia. The patient has liver failure. The patient has pancreatitis. --> smear has been noted and reviewed --> wbc 26-->16-->15 --> ABX vanc/zosyn --> id recs are noted --> trend as needed --> may be related to underlying malignancy as well # Coaguloapthy with hx of cirrhosis --> inr 1.9 -> give ffp if bleeding 4 units --> give vitamin k 10mg sq or iv (has been ordered 01/15) # Cirrhosis # Pancreatitis # Renal insufficiency # Atrial fibrillation with RVR --> per cards, hold anticoag given slow bleed from central line # UTI (urinary tract infection) # Pleural effusion associated with hepatic disorder # Hypertension. # Dyslipidemia. # Poor prognosis. # Transamintiis # DNR Appreciate consultation and dw Vern Monteiro MD Jan 15, 2021 06:33
--- NOTE | 2021-01-15 06:43 | NUR ---
NURSE NOTES: Dr. Adkins at bedside, updated him on patients condition, new orders received. Will continue to monitor.
--- NOTE | 2021-01-15 06:49 | NUR ---
NURSE NOTES: Orders received from Dr. Adkins for 2 units of plateletpheresis, Vit K one time, venous duplex. Will continue to monitor.
--- NOTE | 2021-01-15 09:15 | NUR ---
NURSE NOTES: Pt's belongings are at bedside which includes clothing only, no Iphone-mobile phone noted as documented on paper(belonging's list-form). Documentation also updated on intervention(shift-mandatory).
[2021-01-15] MEDS: Lactulose 20gm/30ml UDC ORAL SCH ×3 (09:17→17:49)
--- NOTE | 2021-01-15 10:06 | NUR ---
NURSE NOTES: Dr. oh updated on this morning chemistry panel for the patient. no urine noted since the morning shift began, patient has edema throughout the entire body and is weeping, the sclera on the eyes is yellow with the patient having jaundice skin, no orders given at this time.
[2021-01-15] MEDS ORDERED: Sodium Bicarbonate 50ml Carp IV SCH (10:30)
--- NOTE | 2021-01-15 10:30 | Nephrology Progress Note ---
Assessment/Plan Problem List: (1) BIANKA (acute kidney injury) (2) Liver failure (3) Pancreatitis (4) Atrial fibrillation with RVR Assessment Renal failure most likely secondary to liver failure Liver failure, liver mass jaundice, pancreatitis, coagulopathy Atrial fibrillation UTI Pleural effusion Leukocytosis Plan January 15: Patient seen in ICU. Patient is now DNR. Intubated on mechanical ventilation. Blood pressure low. Clinical condition poor. Labs reviewed. Serum creatinine rising. Serum bilirubin rising. No candidate for dialysis. Continue current supportive care. Ordoñez catheter Urine studies IV fluid with bicarb Lactulose IV Protonix Monitor renal parameters Per orders Subjective ROS Limited/Unobtainable: Yes Objective Objective Last 24 Hour Vital Signs Date Time Temp Pulse Resp B/P (MAP) Pulse Ox O2 Delivery O2 Flow Rate FiO2 01/15/21 10:00 73 21 86/54 (65) 95 01/15/21 09:30 69 27 79/45 (56) 94 01/15/21 09:00 69 25 55/37 (43) 93 01/15/21 09:00 70 75/55 01/15/21 08:30 75 23 77/56 (63) 97 01/15/21 08:00 60 01/15/21 08:00 96.5 75 42 85/54 (64) 97 01/15/21 07:30 77 31 91/65 (74) 95 01/15/21 07:00 80 29 82/60 (67) 97 01/15/21 07:00 82/46 01/15/21 06:30 82 26 91/70 (77) 100 01/15/21 06:00 100/65 01/15/21 06:00 82 84/59 01/15/21 06:00 81 30 93/55 (68) 100 01/15/21 05:45 81 23 98/67 (77) 100 01/15/21 05:30 82 27 93/68 (76) 100 01/15/21 05:00 82 19 84/59 (67) 99 01/15/21 05:00 84/59 01/15/21 04:30 83 25 83/57 (66) 97 01/15/21 04:00 60 01/15/21 04:00 102/65 01/15/21 04:00 93.0 82 29 106/56 (73) 96 01/15/21 04:00 93 01/15/21 04:00 Mechanical Ventilator 01/15/21 03:30 86 19 90/67 (75) 98 01/15/21 03:23 87 16 60 01/15/21 03:00 88/56 01/15/21 03:00 87 48 104/64 (77) 98 01/15/21 02:30 86 35 102/66 (78) 98 01/15/21 02:00 106/70 01/15/21 02:00 91 37 102/70 (81) 98 01/15/21 01:30 89 36 105/62 (76) 98 01/15/21 01:00 100/65 01/15/21 01:00 89 31 99/70 (80) 98 01/15/21 00:30 89 31 99/71 (80) 98 01/15/21 00:00 89 29 100/51 (67) 97 01/15/21 00:00 60 01/15/21 00:00 97/69 01/15/21 00:00 91 106/70 01/15/21 00:00 Mechanical Ventilator 01/14/21 23:30 90 26 91/53 (66) 100 01/14/21 23:14 91 16 80 01/14/21 23:00 98/58 01/14/21 23:00 90 36 98/55 (69) 100 01/14/21 22:45 82 31 101/58 (72) 99 01/14/21 22:30 91 29 96/60 (72) 100 01/14/21 22:15 91 18 97/65 (76) 100 01/14/21 22:00 90 20 98/51 (67) 100 01/14/21 22:00 98/51 01/14/21 21:45 93 16 106/65 (79) 100 01/14/21 21:30 87 31 93/57 (69) 100 01/14/21 21:15 86 16 86/50 (62) 100 01/14/21 21:00 80/46 01/14/21 21:00 87 33 80/46 (57) 100 01/14/21 20:45 85 33 80/21 (40) 100 01/14/21 20:36 73/13 01/14/21 20:30 89 30 84/52 (63) 100 01/14/21 20:15 92 16 100/70 (80) 100 01/14/21 20:00 89 01/14/21 20:00 95.0 91 19 89/55 (66) 100 01/14/21 20:00 Mechanical Ventilator 01/14/21 20:00 80 01/14/21 19:51 92 31 81/55 (64) 100 01/14/21 19:45 92 34 72/42 (52) 100 01/14/21 19:30 93 37 88/56 (67) 100 01/14/21 19:29 94 16 80 01/14/21 19:26 85 73/13 01/14/21 19:21 94 30 101/58 (72) 100 01/14/21 19:20 94 30 88/55 (66) 100 01/14/21 19:15 91 32 99/70 (80) 100 01/14/21 19:00 83 25 89/57 (68) 100 01/14/21 18:45 83 25 89/57 (68) 100 01/14/21 18:42 85 73/13 01/14/21 18:30 87 30 73/13 (33) 100 01/14/21 18:21 65/25 01/14/21 18:15 90 31 65/25 (38) 100 01/14/21 18:00 93 33 75/36 (49) 100 01/14/21 17:45 96 30 85/42 (56) 100 01/14/21 17:30 98 30 88/62 (71) 100 01/14/21 17:25 80 01/14/21 17:15 91 18 78/46 (57) 100 01/14/21 17:00 98 21 70/55 (60) 100 01/14/21 16:49 99 22 70/51 (57) 100 01/14/21 16:45 102 22 73/50 (58) 97 01/14/21 16:30 106 23 82/68 (73) 97 01/14/21 16:20 111 33 123/80 (94) 95 01/14/21 16:10 116 34 143/75 (97) 63 01/14/21 16:05 112 20 100 01/14/21 16:00 Mechanical Ventilator 01/14/21 16:00 96.3 57 29 170/109 (129) 93 01/14/21 15:50 97 22 43/26 (32) 93 01/14/21 15:40 113 55 118/84 (95) 93 01/14/21 15:30 43/26 01/14/21 15:30 47 20 56/23 (34) 87 01/14/21 15:28 48 20 70/18 (35) 86 01/14/21 15:15 75 20 63/24 (37) 90 01/14/21 15:00 96.5 65 20 76/56 (63) 96 01/14/21 14:53 50 18 100 100 01/14/21 14:53 50 18 94 Bi-Pap 100 01/14/21 12:00 97 01/14/21 12:00 96.1 94 20 101/44 (63) 4 Intake and Output 01/14/21 01/15/21 19:00 07:00 Intake Total 406.25 ml 1867.50 ml Output Total 30 ml 0 ml Balance 376.25 ml 1867.50 ml IV Total 406.25 ml 1867.50 ml Output Urine Total 30 ml 0 ml Current Medications Medications (Trade) Dose Ordered Sig/Vijay Route PRN Reason Start Time Stop Time Status Last Admin Dose Admin Chlorhexidine Gluconate (Kiana-Hex 2%) 1 applic DAILY@1999 TOPIC 01/14/21 20:00 04/14/21 19:59 01/14/21 20:01 Dextrose (Dextrose 50%) 25 ml Q30M PRN IV Hypoglycemia 01/14/21 07:30 04/14/21 07:29 Dextrose (Dextrose 50%) 50 ml Q30M PRN IV Hypoglycemia 01/14/21 07:30 04/14/21 07:29 01/14/21 11:42 Diphenhydramine HCl (Benadryl) 25 mg Q6H PRN ORAL Itching/Pruritis 01/13/21 16:45 02/12/21 16:44 Famotidine (Pepcid I.v.) 20 mg Q12HR IVP 01/14/21 16:15 02/13/21 16:14 01/15/21 09:16 Insulin Aspart (NovoLOG) BEFORE MEALS AND HS SUBQ 01/14/21 11:30 04/14/21 11:29 Lactulose (Cephulac) 20 gm THREE TIMES A DAY ORAL 01/14/21 09:00 02/13/21 08:59 01/15/21 09:17 Lorazepam (Ativan) 1 mg Q4H PRN ORAL For Anxiety 01/13/21 16:45 01/20/21 16:44 01/14/21 03:40 Metoprolol Tartrate (Lopressor) 25 mg Q12HR ORAL 01/14/21 09:00 04/14/21 08:59 01/14/21 08:29 Morphine Sulfate (Morphine Sulfate) 2 mg Q3H PRN IVP Moderate Pain (Pain Scale 4-6) 01/13/21 16:45 01/20/21 16:44 01/14/21 02:59 Norepinephrine Bitartrate 16 mg/ Dextrose 500 ml @ 0 mls/hr Q24H IV 01/14/21 20:15 01/17/21 20:14 01/15/21 05:00 Ondansetron HCl (Zofran) 4 mg Q6H PRN IVP Nausea & Vomiting 01/13/21 16:45 02/12/21 16:44 Pantoprazole (Protonix) 40 mg EVERY 12 HOURS ORAL 01/14/21 21:00 02/13/21 20:59 Phenylephrine HCl 100 mg/Dextrose 250 ml @ 0 mls/hr Q24H IV 01/14/21 18:00 01/17/21 17:59 01/15/21 06:00 Piperacillin Sod/ Tazobactam Sod 3.375 gm/Sodium Chloride 110 ml @ 27.5 mls/hr EVERY 8 HOURS IVPB 01/14/21 10:00 01/19/21 09:59 01/15/21 04:59 Rifaximin (Xifaxan) 550 mg EVERY 12 HOURS ORAL 01/14/21 09:00 01/21/21 08:59 01/15/21 09:17 Sodium Bicarbonate 100 ml/Dextrose/ Sodium Chloride 1,100 ml @ 75 mls/hr [id number] IV 01/14/21 17:00 02/13/21 16:59 01/15/21 06:00 Temazepam (Restoril) 15 mg DAILYPRN PRN ORAL Insomnia 01/13/21 16:45 01/20/21 16:44 Vancomycin HCl (Vanco pharmacy to dose) 1 ea DAILY PRN MISC Per rx protocol 01/14/21 08:00 02/13/21 07:59 Vasopressin 100 units/Sodium Chloride 100 ml @ 0 mls/hr Q24H IV 01/14/21 19:30 01/17/21 19:27 01/14/21 21:30 Laboratory Tests 01/14/21 11:39: POC Whole Blood Glucose [Pending] 01/14/21 12:31: POC Whole Blood Glucose 116H 01/14/21 13:21: Arterial Blood pH 7.063*L, Arterial Blood Partial Pressure CO2 43.5, Arterial Blood Partial Pressure O2 81.2, Arterial Blood HCO3 12.1*L, Arterial Blood Oxygen Saturation 91.4L, Arterial Blood Base Excess -17.0*L, Pacheco Test Positive 01/14/21 17:09: Arterial Blood pH 7.073*L, Arterial Blood Partial Pressure CO2 36.9, Arterial Blood Partial Pressure O2 212.1H, Arterial Blood HCO3 10.5*L, Arterial Blood Oxygen Saturation 99.6, Arterial Blood Base Excess -18.1*L, Pacheco Test Positive 01/14/21 20:15: White Blood Count 15.9H, Red Blood Count 1.65L, Hemoglobin 5.2#*L, Hematocrit 17.8#L, Mean Corpuscular Volume 108H, Mean Corpuscular Hemoglobin 31.9H, Mean Corpuscular Hemoglobin Concent 29.4L, Red Cell Distribution Width 25.1H, Platelet Count 71L, Mean Platelet Volume 9.1, Neutrophils (%) (Auto) , Lymphocytes (%) (Auto) , Monocytes (%) (Auto) , Eosinophils (%) (Auto) , Basophils (%) (Auto) , Differential Total Cells Counted 100, Neutrophils % (Manual) 84H, Lymphocytes % (Manual) 3L, Monocytes % (Manual) 4, Eosinophils % (Manual) 0, Basophils % (Manual) 0, Band Neutrophils 9H, Platelet Estimate DecreasedL, Platelet Morphology Normal, Polychromasia 1+, Hypochromasia 2+, Anisocytosis 3+, Macrocytosis 1+, Schistocytes Occasional 01/15/21 04:00: White Blood Count 15.1H, Red Blood Count 2.83L, Hemoglobin 8.5#L, Hematocrit 28.6#L, Mean Corpuscular Volume 101H, Mean Corpuscular Hemoglobin 30.2, Mean Corpuscular Hemoglobin Concent 29.9L, Red Cell Distribution Width 25.2H, Platelet Count 62L, Mean Platelet Volume 7.9, Neutrophils (%) (Auto) , Lymphocytes (%) (Auto) , Monocytes (%) (Auto) , Eosinophils (%) (Auto) , Basophils (%) (Auto) , Sodium Level 134L, Potassium Level 5.9H, Chloride Level 102, Carbon Dioxide Level 11L, Anion Gap 23H, Blood Urea Nitrogen 47H, Creatinine 2.9H, Estimat Glomerular Filtration Rate 22.5, Glucose Level 98, Uric Acid 7.9H, Calcium Level 7.7L, Phosphorus Level 8.8H, Magnesium Level 2.3, Iron Level 50, Total Iron Binding Capacity 73L, Percent Iron Saturation 68H, Unsaturated Iron Binding 23L, Ferritin 446H, Total Bilirubin 21.7H, Direct Bilirubin 13.1H, Gamma Glutamyl Transpeptidase 47, Aspartate Amino Transf (AST /SGOT) 5760H, Alanine Aminotransferase (ALT/SGPT) 792H, Alkaline Phosphatase 512H, Ammonia 78H, Lactate Dehydrogenase 2906H, Troponin I 1.374H, C-Reactive Protein, Quantitative 7.5H, Pro-B-Type Natriuretic Peptide 8891H, Total Protein 5.2L, Albumin 2.1L, Globulin 3.1, Albumin/Globulin Ratio 0.7L, Amylase Level 1199*H, Lipase > 2000H, Alpha Fetoprotein [Pending], Vitamin B12 Level > 2000H, Folate 15.0, Thyroid Stimulating Hormone (TSH) 2.382, Random Vancomycin Level 20.6, Hepatitis A IgM Antibody [Pending], Hepatitis B Surface Antigen [Pending], Hepatitis B Core IgM Antibody [Pending], Hepatitis C Antibody [Pending] 01/15/21 04:34: POC Whole Blood Glucose [Pending] 01/15/21 07:10: Prothrombin Time [Pending], Prothromb Time International Ratio [Pending], Activated Partial Thromboplast Time [Pending], Carcinoembryonic Antigen [Pending], CA 19-9 Antigen [Pending], CA 125 Antigen [Pending] 01/15/21 09:32: Arterial Blood pH 6.944*L, Arterial Blood Partial Pressure CO2 34.9L, Arterial Blood Partial Pressure O2 48.5*L, Arterial Blood HCO3 7.4*L, Arterial Blood Oxygen Saturation 73.3*L, Arterial Blood Base Excess -23.3*L, Pacheco Test N/a Height (Feet): 5 Height (Inches): 7.00 Weight (Pounds): 175 General Appearance: no apparent distress, other - Jaundiced EENT: other - Intubated on ventilator Cardiovascular: normal rate Respiratory/Chest: decreased breath sounds Abdomen: distended Michael Munoz MD Jan 15, 2021 10:30
--- NOTE | 2021-01-15 10:35 | NUR ---
NURSE NOTES: Dr. Izquierdo updated at the bedside, made aware the patient is currently having infusion Levophed at 30mcg/min double concentration phenylephrine at 240mcg/min and vasopressin at 0.04to maintain systolic blood pressure above 90. no orders given at this time.
[2021-01-15 10:44] LABS: INR > 10.0 (0.9-1.1); PARTIAL THROMBOPLASTIN TIME > 150 SEC (23-33)
--- NOTE | 2021-01-15 11:14 | Surgery Progress Note ---
Surgery Progress Note Subjective Symptoms: worse Additional Comments declining heme onc input noted Objective Last 24 Hour Vital Signs Date Time Temp Pulse Resp B/P (MAP) Pulse Ox O2 Delivery O2 Flow Rate FiO2 01/15/21 10:00 73 21 86/54 (65) 95 01/15/21 09:30 69 27 79/45 (56) 94 01/15/21 09:00 69 25 55/37 (43) 93 01/15/21 09:00 70 75/55 01/15/21 08:30 75 23 77/56 (63) 97 01/15/21 08:00 60 01/15/21 08:00 96.5 75 42 85/54 (64) 97 01/15/21 08:00 Mechanical Ventilator 01/15/21 07:30 77 31 91/65 (74) 95 01/15/21 07:04 76 16 100 01/15/21 07:00 80 29 82/60 (67) 97 01/15/21 07:00 82/46 01/15/21 06:30 82 26 91/70 (77) 100 01/15/21 06:00 100/65 01/15/21 06:00 82 84/59 01/15/21 06:00 81 30 93/55 (68) 100 01/15/21 05:45 81 23 98/67 (77) 100 01/15/21 05:30 82 27 93/68 (76) 100 01/15/21 05:00 82 19 84/59 (67) 99 01/15/21 05:00 84/59 01/15/21 04:30 83 25 83/57 (66) 97 01/15/21 04:00 60 01/15/21 04:00 102/65 01/15/21 04:00 93.0 82 29 106/56 (73) 96 01/15/21 04:00 93 01/15/21 04:00 Mechanical Ventilator 01/15/21 03:30 86 19 90/67 (75) 98 01/15/21 03:23 87 16 60 01/15/21 03:00 88/56 01/15/21 03:00 87 48 104/64 (77) 98 01/15/21 02:30 86 35 102/66 (78) 98 01/15/21 02:00 106/70 01/15/21 02:00 91 37 102/70 (81) 98 01/15/21 01:30 89 36 105/62 (76) 98 01/15/21 01:00 100/65 01/15/21 01:00 89 31 99/70 (80) 98 01/15/21 00:30 89 31 99/71 (80) 98 01/15/21 00:00 89 29 100/51 (67) 97 01/15/21 00:00 60 01/15/21 00:00 97/69 01/15/21 00:00 91 106/70 01/15/21 00:00 Mechanical Ventilator 01/14/21 23:30 90 26 91/53 (66) 100 01/14/21 23:14 91 16 80 01/14/21 23:00 98/58 01/14/21 23:00 90 36 98/55 (69) 100 01/14/21 22:45 82 31 101/58 (72) 99 01/14/21 22:30 91 29 96/60 (72) 100 01/14/21 22:15 91 18 97/65 (76) 100 01/14/21 22:00 90 20 98/51 (67) 100 01/14/21 22:00 98/51 01/14/21 21:45 93 16 106/65 (79) 100 01/14/21 21:30 87 31 93/57 (69) 100 01/14/21 21:15 86 16 86/50 (62) 100 01/14/21 21:00 80/46 01/14/21 21:00 87 33 80/46 (57) 100 01/14/21 20:45 85 33 80/21 (40) 100 01/14/21 20:36 73/13 01/14/21 20:30 89 30 84/52 (63) 100 01/14/21 20:15 92 16 100/70 (80) 100 01/14/21 20:00 89 01/14/21 20:00 95.0 91 19 89/55 (66) 100 01/14/21 20:00 Mechanical Ventilator 01/14/21 20:00 80 01/14/21 19:51 92 31 81/55 (64) 100 01/14/21 19:45 92 34 72/42 (52) 100 01/14/21 19:30 93 37 88/56 (67) 100 01/14/21 19:29 94 16 80 01/14/21 19:26 85 73/13 01/14/21 19:21 94 30 101/58 (72) 100 01/14/21 19:20 94 30 88/55 (66) 100 01/14/21 19:15 91 32 99/70 (80) 100 01/14/21 19:00 83 25 89/57 (68) 100 01/14/21 18:45 83 25 89/57 (68) 100 01/14/21 18:42 85 73/13 01/14/21 18:30 87 30 73/13 (33) 100 01/14/21 18:21 65/25 01/14/21 18:15 90 31 65/25 (38) 100 01/14/21 18:00 93 33 75/36 (49) 100 01/14/21 17:45 96 30 85/42 (56) 100 01/14/21 17:30 98 30 88/62 (71) 100 01/14/21 17:25 80 01/14/21 17:15 91 18 78/46 (57) 100 01/14/21 17:00 98 21 70/55 (60) 100 01/14/21 16:49 99 22 70/51 (57) 100 01/14/21 16:45 102 22 73/50 (58) 97 01/14/21 16:30 106 23 82/68 (73) 97 01/14/21 16:20 111 33 123/80 (94) 95 01/14/21 16:10 116 34 143/75 (97) 63 01/14/21 16:05 112 20 100 01/14/21 16:00 Mechanical Ventilator 01/14/21 16:00 96.3 57 29 170/109 (129) 93 01/14/21 15:50 97 22 43/26 (32) 93 01/14/21 15:40 113 55 118/84 (95) 93 01/14/21 15:30 43/26 01/14/21 15:30 47 20 56/23 (34) 87 01/14/21 15:28 48 20 70/18 (35) 86 01/14/21 15:15 75 20 63/24 (37) 90 01/14/21 15:00 96.5 65 20 76/56 (63) 96 2/17/21 14:53 50 18 100 100 01/14/21 14:53 50 18 94 Bi-Pap 100 01/14/21 12:00 97 01/14/21 12:00 96.1 94 20 101/44 (63) 4 I&O Intake and Output 01/14/21 01/15/21 19:00 07:00 Intake Total 406.25 ml 1867.50 ml Output Total 30 ml 0 ml Balance 376.25 ml 1867.50 ml IV Total 406.25 ml 1867.50 ml Output Urine Total 30 ml 0 ml Dressing: other Wound: other Cardiovascular: RSR Respiratory: decreased breath sounds Abdomen: soft, distended, non-tender, decreased bowel sounds Extremities: edema Laboratory Tests Test 01/14/21 11:39 01/14/21 12:31 01/14/21 13:21 01/14/21 17:09 POC Whole Blood Glucose Pending 116 MG/DL (74-106) H Arterial Blood pH 7.063 (7.350-7.450) 7.073 (7.350-7.450) Arterial Blood Partial Pressure CO2 43.5 mmHg (35.0-45.0) 36.9 mmHg (35.0-45.0) Arterial Blood Partial Pressure O2 81.2 mmHg (75.0-100.0) 212.1 mmHg (75.0-100.0) H Arterial Blood HCO3 12.1 mmol/L (22.0-26.0) *L 10.5 mmol/L (22.0-26.0) *L Arterial Blood Oxygen Saturation 91.4 % (95-100) L 99.6 % (95-100) Arterial Blood Base Excess -17.0 (-2-2) *L -18.1 (-2-2) *L Pacheco Test Positive Positive Test 01/14/21 20:15 01/15/21 04:00 01/15/21 04:34 01/15/21 07:10 White Blood Count 15.9 K/UL (4.8-10.8) H 15.1 K/UL (4.8-10.8) H Red Blood Count 1.65 M/UL (4.70-6.10) L 2.83 M/UL (4.70-6.10) L Hemoglobin 5.2 G/DL (14.2-18.0) 8.5 G/DL (14.2-18.0) #L Hematocrit 17.8 % (42.0-52.0) #L 28.6 % (42.0-52.0) #L Mean Corpuscular Volume 108 FL (80-99) H 101 FL (80-99) H Mean Corpuscular Hemoglobin 31.9 PG (27.0-31.0) H 30.2 PG (27.0-31.0) Mean Corpuscular Hemoglobin Concent 29.4 G/DL (32.0-36.0) L 29.9 G/DL (32.0-36.0) L Red Cell Distribution Width 25.1 % (11.6-14.8) H 25.2 % (11.6-14.8) H Platelet Count 71 K/UL (150-450) L 62 K/UL (150-450) L Mean Platelet Volume 9.1 FL (6.5-10.1) 7.9 FL (6.5-10.1) Neutrophils (%) (Auto) % (45.0-75.0) % (45.0-75.0) Lymphocytes (%) (Auto) % (20.0-45.0) % (20.0-45.0) Monocytes (%) (Auto) % (1.0-10.0) % (1.0-10.0) Eosinophils (%) (Auto) % (0.0-3.0) % (0.0-3.0) Basophils (%) (Auto) % (0.0-2.0) % (0.0-2.0) Differential Total Cells Counted 100 Neutrophils % (Manual) 84 % (45-75) H Lymphocytes % (Manual) 3 % (20-45) L Monocytes % (Manual) 4 % (1-10) Eosinophils % (Manual) 0 % (0-3) Basophils % (Manual) 0 % (0-2) Band Neutrophils 9 % (0-8) H Platelet Estimate Decreased L Platelet Morphology Normal Polychromasia 1+ Hypochromasia 2+ Anisocytosis 3+ Macrocytosis 1+ Schistocytes Occasional Sodium Level 134 MMOL/L (136-145) L Potassium Level 5.9 MMOL/L (3.5-5.1) H Chloride Level 102 MMOL/L (98-107) Carbon Dioxide Level 11 MMOL/L (21-32) L Anion Gap 23 mmol/L (5-15) H Blood Urea Nitrogen 47 mg/dL (7-18) H Creatinine 2.9 MG/DL (0.55-1.30) H Estimat Glomerular Filtration Rate 22.5 mL/min (>60) Glucose Level 98 MG/DL (74-106) Uric Acid 7.9 MG/DL (2.6-7.2) H Calcium Level 7.7 MG/DL (8.5-10.1) L Phosphorus Level 8.8 MG/DL (2.5-4.9) H Magnesium Level 2.3 MG/DL (1.8-2.4) Iron Level 50 ug/dL (50-175) Total Iron Binding Capacity 73 ug/dL (250-450) L Percent Iron Saturation 68 % (15-50) H Unsaturated Iron Binding 23 ug/dL (112-346) L Ferritin 446 NG/ML (8-388) H Total Bilirubin 21.7 MG/DL (0.2-1.0) H Direct Bilirubin 13.1 MG/DL (0.0-0.3) H Gamma Glutamyl Transpeptidase 47 U/L (5-85) Aspartate Amino Transf (AST/SGOT) 5760 U/L (15-37) H Alanine Aminotransferase (ALT/SGPT) 792 U/L (12-78) H Alkaline Phosphatase 512 U/L (46-116) H Ammonia 78 umol/L (11-32) H Lactate Dehydrogenase 2906 U/L (81-234) H Troponin I 1.374 ng/mL (0.000-0.056) C-Reactive Protein, Quantitative 7.5 mg/dL (0.00-0.90) H Pro-B-Type Natriuretic Peptide 8891 pg/mL (0-125) H Total Protein 5.2 G/DL (6.4-8.2) L Albumin 2.1 G/DL (3.4-5.0) L Globulin 3.1 g/dL Albumin/Globulin Ratio 0.7 (1.0-2.7) L Amylase Level 1199 U/L (25-115) *H Lipase > 2000 U/L (73-393) H Alpha Fetoprotein Pending Vitamin B12 Level > 2000 PG/ML (193-986) H Folate 15.0 NG/ML (8.6-58.9) Thyroid Stimulating Hormone (TSH) 2.382 uiU/mL (0.358-3.740) Random Vancomycin Level 20.6 ug/mL Hepatitis A IgM Antibody Pending Hepatitis B Surface Antigen Pending Hepatitis B Core IgM Antibody Pending Hepatitis C Antibody Pending POC Whole Blood Glucose Pending Prothrombin Time > 100.0 SEC (9.30-11.50) H Prothromb Time International Ratio > 10.0 (0.9-1.1) *H Activated Partial Thromboplast Time > 150 SEC (23-33) *H Carcinoembryonic Antigen Pending CA 19-9 Antigen Pending CA 125 Antigen Pending Test 01/15/21 09:32 Arterial Blood pH 6.944 (7.350-7.450) Arterial Blood Partial Pressure CO2 34.9 mmHg (35.0-45.0) L Arterial Blood Partial Pressure O2 48.5 mmHg (75.0-100.0) Arterial Blood HCO3 7.4 mmol/L (22.0-26.0) *L Arterial Blood Oxygen Saturation 73.3 % (95-100) *L Arterial Blood Base Excess -23.3 (-2-2) *L Pacheco Test N/a Plan Problems: (1) UTI (urinary tract infection) (2) Coagulopathy (3) Leukocytosis (4) Pancreatitis Assessment & Plan: 60-year-old male with liver disease now pancreatitis. Abdominal pain. Labs noted imaging reviewed. No acute surgical intervention necessary at this time. GI eval liver eval n.p.o. IV fluids trend labs we will follow with you on exam recommendations thank you for letting present patient's care Liver cancer. The patient has ascites, CT 6.7 cm round exophytic mass arising from segment 4A of the liver. This is presumably related to stated clinical history of liver cancer. Surgical clips are seen adjacent to this mass. --> known history --> in prior was on hospice There are colonic diverticula. No definite evidence of diverticulitis. The appendix is normal. There is a moderate amount of free intraperitoneal fluid. No free intraperitoneal gas. The stomach and duodenum are unremarkable. Lack of IV contrast limits assessment of the solid organs. The liver is very atrophic and demonstrates extensive surface nodularity. Surgical clips are seen at the inferior aspect of the left hepatic lobe. Arising from segment 4A, there is a round exophytic mass which measures approximately 6.7 cm in diameter. This demonstrates some peripheral calcification. Large perigastric and periesophageal varices are demonstrated. There is a moderate amount of ascites fluid. A ventriculoperitoneal shunt catheter is seen coursing through the peritoneal space and has its tip in the pelvis. The pancreas, spleen, adrenals, kidneys are grossly unremarkable. No retroperitoneal or mesenteric mass or adenopathy. No pelvic mass or adenopathy. There is bilateral gynecomastia. There is diffuse edema of the subcutaneous and abdominal fat. There is a massive right pleural effusion. This results in co mplete atelectasis of the right lower lobe. The included left lung base demonstrates some atelectasis, no pleural fluid. The heart is borderline large. The bones are unremarkable for age. Impression: Evidence of hepatic cirrhosis, with atrophy and surface nodularity 6.7 cm round exophytic mass arising from segment 4A of the liver. This is presumably related to stated clinical history of liver cancer. Surgical clips are seen adjacent to this mass. Evidence of portal hypertension, with large periesophageal and perigastric varices Moderate ascites, likely related to liver disease. However, there is also a ventriculoperitoneal shunt catheter which may be contributing some volume to the ascites. There is evidence of anasarca, including massive right pleural effusion, diffuse edema of the subcutaneous and abdominal fat limiting assessment of the GI tract, due to lack of enteric contrast administration. No gross acute GI pathology. Colonic diverticulosis. No evidence of diverticulitis Borderline cardiomegaly Incidental finding bilateral gynecomastia (5) Renal insufficiency (6) Liver failure (7) Atrial fibrillation with RVR ElmerdinoThomas Jan 15, 2021 11:14
--- NOTE | 2021-01-15 12:25 | General Progress Note ---
Subjective ROS Limited/Unobtainable: No Allergies: Coded Allergies: CEPHALEXIN (Verified Allergy, Unknown, 01/13/21) Objective Last 24 Hour Vital Signs Date Time Temp Pulse Resp B/P (MAP) Pulse Ox O2 Delivery O2 Flow Rate FiO2 01/15/21 10:00 73 21 86/54 (65) 95 01/15/21 09:30 69 27 79/45 (56) 94 01/15/21 09:00 69 25 55/37 (43) 93 01/15/21 09:00 70 75/55 01/15/21 08:30 75 23 77/56 (63) 97 01/15/21 08:00 60 01/15/21 08:00 96.5 75 42 85/54 (64) 97 01/15/21 08:00 Mechanical Ventilator 01/15/21 07:30 77 31 91/65 (74) 95 01/15/21 07:04 76 16 100 01/15/21 07:00 80 29 82/60 (67) 97 01/15/21 07:00 82/46 01/15/21 06:30 82 26 91/70 (77) 100 01/15/21 06:00 100/65 01/15/21 06:00 82 84/59 01/15/21 06:00 81 30 93/55 (68) 100 01/15/21 05:45 81 23 98/67 (77) 100 01/15/21 05:30 82 27 93/68 (76) 100 01/15/21 05:00 82 19 84/59 (67) 99 01/15/21 05:00 84/59 01/15/21 04:30 83 25 83/57 (66) 97 01/15/21 04:00 60 01/15/21 04:00 102/65 01/15/21 04:00 93.0 82 29 106/56 (73) 96 01/15/21 04:00 93 01/15/21 04:00 Mechanical Ventilator 01/15/21 03:30 86 19 90/67 (75) 98 01/15/21 03:23 87 16 60 01/15/21 03:00 88/56 01/15/21 03:00 87 48 104/64 (77) 98 01/15/21 02:30 86 35 102/66 (78) 98 01/15/21 02:00 106/70 2/18/21 02:00 91 37 102/70 (81) 98 01/15/21 01:30 89 36 105/62 (76) 98 01/15/21 01:00 100/65 01/15/21 01:00 89 31 99/70 (80) 98 01/15/21 00:30 89 31 99/71 (80) 98 01/15/21 00:00 89 29 100/51 (67) 97 01/15/21 00:00 60 01/15/21 00:00 97/69 01/15/21 00:00 91 106/70 01/15/21 00:00 Mechanical Ventilator 01/14/21 23:30 90 26 91/53 (66) 100 01/14/21 23:14 91 16 80 01/14/21 23:00 98/58 01/14/21 23:00 90 36 98/55 (69) 100 01/14/21 22:45 82 31 101/58 (72) 99 01/14/21 22:30 91 29 96/60 (72) 100 01/14/21 22:15 91 18 97/65 (76) 100 01/14/21 22:00 90 20 98/51 (67) 100 01/14/21 22:00 98/51 01/14/21 21:45 93 16 106/65 (79) 100 01/14/21 21:30 87 31 93/57 (69) 100 01/14/21 21:15 86 16 86/50 (62) 100 01/14/21 21:00 80/46 01/14/21 21:00 87 33 80/46 (57) 100 01/14/21 20:45 85 33 80/21 (40) 100 01/14/21 20:36 73/13 01/14/21 20:30 89 30 84/52 (63) 100 01/14/21 20:15 92 16 100/70 (80) 100 01/14/21 20:00 89 01/14/21 20:00 95.0 91 19 89/55 (66) 100 01/14/21 20:00 Mechanical Ventilator 01/14/21 20:00 80 01/14/21 19:51 92 31 81/55 (64) 100 01/14/21 19:45 92 34 72/42 (52) 100 01/14/21 19:30 93 37 88/56 (67) 100 01/14/21 19:29 94 16 80 01/14/21 19:26 85 73/13 01/14/21 19:21 94 30 101/58 (72) 100 01/14/21 19:20 94 30 88/55 (66) 100 01/14/21 19:15 91 32 99/70 (80) 100 01/14/21 19:00 83 25 89/57 (68) 100 01/14/21 18:45 83 25 89/57 (68) 100 01/14/21 18:42 85 73/13 01/14/21 18:30 87 30 73/13 (33) 100 01/14/21 18:21 65/25 01/14/21 18:15 90 31 65/25 (38) 100 01/14/21 18:00 93 33 75/36 (49) 100 01/14/21 17:45 96 30 85/42 (56) 100 01/14/21 17:30 98 30 88/62 (71) 100 01/14/21 17:25 80 01/14/21 17:15 91 18 78/46 (57) 100 01/14/21 17:00 98 21 70/55 (60) 100 01/14/21 16:49 99 22 70/51 (57) 100 01/14/21 16:45 102 22 73/50 (58) 97 01/14/21 16:30 106 23 82/68 (73) 97 01/14/21 16:20 111 33 123/80 (94) 95 01/14/21 16:10 116 34 143/75 (97) 63 01/14/21 16:05 112 20 100 01/14/21 16:00 Mechanical Ventilator 01/14/21 16:00 96.3 57 29 170/109 (129) 93 01/14/21 15:50 97 22 43/26 (32) 93 01/14/21 15:40 113 55 118/84 (95) 93 01/14/21 15:30 43/26 01/14/21 15:30 47 20 56/23 (34) 87 01/14/21 15:28 48 20 70/18 (35) 86 01/14/21 15:15 75 20 63/24 (37) 90 01/14/21 15:00 96.5 65 20 76/56 (63) 96 01/14/21 14:53 50 18 100 100 01/14/21 14:53 50 18 94 Bi-Pap 100 Intake and Output 01/14/21 01/15/21 19:00 07:00 Intake Total 406.25 ml 1867.50 ml Output Total 30 ml 0 ml Balance 376.25 ml 1867.50 ml IV Total 406.25 ml 1867.50 ml Output Urine Total 30 ml 0 ml Laboratory Tests 01/14/21 12:31: POC Whole Blood Glucose 116H 01/14/21 13:21: Arterial Blood pH 7.063*L, Arterial Blood Partial Pressure CO2 43.5, Arterial Blood Partial Pressure O2 81.2, Arterial Blood HCO3 12.1*L, Arterial Blood Oxygen Saturation 91.4L, Arterial Blood Base Excess -17.0*L, Pacheco Test Positive 01/14/21 17:09: Arterial Blood pH 7.073*L, Arterial Blood Partial Pressure CO2 36.9, Arterial Blood Partial Pressure O2 212.1H, Arterial Blood HCO3 10.5*L, Arterial Blood Oxygen Saturation 99.6, Arterial Blood Base Excess -18.1*L, Pacheco Test Positive 01/14/21 20:15: White Blood Count 15.9H, Red Blood Count 1.65L, Hemoglobin 5.2#*L, Hematocrit 17.8#L, Mean Corpuscular Volume 108H, Mean Corpuscular Hemoglobin 31.9H, Mean Corpuscular Hemoglobin Concent 29.4L, Red Cell Distribution Width 25.1H, Platelet Count 71L, Mean Platelet Volume 9.1, Neutrophils (%) (Auto) , Lymphocytes (%) (Auto) , Monocytes (%) (Auto) , Eosinophils (%) (Auto) , Basophils (%) (Auto) , Differential Total Cells Counted 100, Neutrophils % (Manual) 84H, Lymphocytes % (Manual) 3L, Monocytes % (Manual) 4, Eosinophils % ( Manual) 0, Basophils % (Manual) 0, Band Neutrophils 9H, Platelet Estimate DecreasedL, Platelet Morphology Normal, Polychromasia 1+, Hypochromasia 2+, Anisocytosis 3+, Macrocytosis 1+, Schistocytes Occasional 01/15/21 04:00: White Blood Count 15.1H, Red Blood Count 2.83L, Hemoglobin 8.5#L, Hematocrit 28.6#L, Mean Corpuscular Volume 101H, Mean Corpuscular Hemoglobin 30.2, Mean Corpuscular Hemoglobin Concent 29.9L, Red Cell Distribution Width 25.2H, Platelet Count 62L, Mean Platelet Volume 7.9, Neutrophils (%) (Auto) , Lymphocytes (%) (Auto) , Monocytes (%) (Auto) , Eosinophils (%) (Auto) , Basophils (%) (Auto) , Sodium Level 134L, Potassium Level 5.9H, Chloride Level 102, Carbon Dioxide Level 11L, Anion Gap 23H, Blood Urea Nitrogen 47H, Creatinine 2.9H, Estimat Glomerular Filtration Rate 22.5, Glucose Level 98, Uric Acid 7.9H, Calcium Level 7.7L, Phosphorus Level 8.8H, Magnesium Level 2.3, Iron Level 50, Total Iron Binding Capacity 73L, Percent Iron Saturation 68H, Unsaturated Iron Binding 23L, Ferritin 446H, Total Bilirubin 21.7H, Direct Bilirubin 13.1H, Gamma Glutamyl Transpeptidase 47, Aspartate Amino Transf ( AST/SGOT) 5760H, Alanine Aminotransferase (ALT/SGPT) 792H, Alkaline Phosphatase 512H, Ammonia 78H, Lactate Dehydrogenase 2906H, Troponin I 1.374H, C-Reactive Protein, Quantitative 7.5H, Pro-B-Type Natriuretic Peptide 8891H, Total Protein 5.2L, Albumin 2.1L, Globulin 3.1, Albumin/Globulin Ratio 0.7L, Amylase Level 1199*H, Lipase > 2000H, Alpha Fetoprotein [Pending], Vitamin B12 Level > 2000H, Folate 15.0, Thyroid Stimulating Hormone (TSH) 2.382, Random Vancomycin Level 20.6, Hepatitis A IgM Antibody [Pending], Hepatitis B Surface Antigen [Pending], Hepatitis B Core IgM Antibody [Pending], Hepatitis C Antibody [Pending] 01/15/21 04:34: POC Whole Blood Glucose [Pending] 01/15/21 07:10: Prothrombin Time > 100.0H, Prothromb Time International Ratio > 10.0*H, Activated Partial Thromboplast Time > 150*H, Carcinoembryonic Antigen [Pending], CA 19-9 Antigen [Pending], CA 125 Antigen [Pending] 01/15/21 09:32: Arterial Blood pH 6.944*L, Arterial Blood Partial Pressure CO2 34.9L, Arterial Blood Partial Pressure O2 48.5*L, Arterial Blood HCO3 7.4*L, Arterial Blood Oxygen Saturation 73.3*L, Arterial Blood Base Excess -23.3*L, Pacheco Test N/a 01/15/21 11:55: POC Whole Blood Glucose 115H Height (Feet): 5 Height (Inches): 7.00 Weight (Pounds): 175 General Appearance: lethargic EENT: normal ENT inspection Neck: supple Cardiovascular: tachycardia Respiratory/Chest: decreased breath sounds Abdomen: hypoactive bowel sounds Extremities: non-tender Assessment/Plan Problem List: (1) Respiratory failure ICD Codes: J96.90 - Respiratory failure, unspecified, unspecified whether with hypoxia or hypercapnia SNOMED: 195650634 (2) Liver failure ICD Codes: K72.90 - Hepatic failure, unspecified without coma SNOMED: 70371946 Qualifiers: Qualified Codes: K72.00 - Acute and subacute hepatic failure without coma (3) Pancreatitis ICD Codes: K85.90 - Acute pancreatitis without necrosis or infection, unspecified SNOMED: 05357457 Qualifiers: Qualified Codes: K85.90 - Acute pancreatitis without necrosis or infection, unspecified (4) Coagulopathy ICD Codes: D68.9 - Coagulation defect, unspecified SNOMED: 82892552 Assessment/Plan: now intubated in the ICU transfuse FFP npo octreotide ppi DNR poor prognosis Jorje Ross MD Jan 15, 2021 12:25
--- NOTE | 2021-01-15 12:27 | NUR ---
NURSE NOTES: Dr. Ross updated on the patient INR, PT, and PTT. ordered to have 2 units of Fresh frozen plasma. the patient has blood tinged sputum with no other orifice having bleeding. no bleeding indicated by the mckay or bleeding from the rectal site. the patient skin is yellowish throughout the entire body.
--- NOTE | 2021-01-15 12:58 | Diagnostic Imaging Report ---
Indication: Bilateral lower extremity edema Technique: Grayscale and duplex images of the bilateral lower extremity veins Comparison: None Findings: Bilaterally, grayscale and duplex images demonstrate no evidence of intraluminal thrombus. Normal phasic Doppler waveforms, demonstrating normal augmentation response and no evidence of valvular insufficiency. Greater saphenous vein(s) and tibial veins are patent. Normal compressibility. Impression: Negative for evidence of lower extremity deep venous thrombosis bilaterally
--- NOTE | 2021-01-15 13:15 | NUR ---
NURSE NOTES: Dr. Vasquez informed that patient blood pressure has dropped to the 67/49 with heart rate of 60-74in sinus rhythm. informed the patient is currently running Levophed at 30mcg/min, phenylephrine at 240mcg/min and vasopressin at 0.04units/hr. no additional order obtained to add an additional medications.
--- NOTE | 2021-01-15 13:44 | Consultation ---
DATE OF CONSULTATION: 01/15/2021 ENDOCRINOLOGY CONSULTATION CONSULTING PHYSICIAN: Richard Tay MD. REFERRING PHYSICIAN: Gen Diop MD. REASON FOR CONSULTATION: Diabetes and hypoglycemia management. HISTORY OF PRESENT ILLNESS: It is important to note that history was obtained mostly from the review of the chart and medical record due to the patient's condition. The patient is a 60-year-old male with past medical history of liver cirrhosis and possible liver cancer, presented to the hospital with abdominal pain, abdominal swelling, and hypoglycemia. The patient was in atrial fibrillation and liver failure. The patient was hypoglycemic, therefore, Endocrinology was consulted and started the patient on dextrose infusion and was transferred to the ICU and is now doing well. PAST MEDICAL HISTORY: 1. Diabetes. 2. Liver cirrhosis. 3. Possible liver mass. 4. Hypertension. ALLERGIES: Cephalexin. MEDICATIONS: Reviewed and reconciled. SOCIAL HISTORY: Not obtainable. FAMILY HISTORY: Not obtainable. REVIEW OF SYSTEMS: Unobtainable. PAST SURGICAL HISTORY: Based on history, there is some surgery on the liver but it is unknown exactly what. PHYSICAL EXAMINATION: VITAL SIGNS: Doing poorly. Blood pressure is 84/59, heart rate 82, temperature 93. GENERAL: The patient is quite lethargic and obtunded. HEART: Regular. LUNGS: Decreased breath sounds. ABDOMEN: Distended. EXTREMITIES: Positive for edema. LABORATORY VALUES: WBC 15, hemoglobin 8, hematocrit 28, platelets of 62. Sodium 134, potassium 5.9, chloride 102, bicarb 11, BUN 47, creatinine 2.9. Hemoglobin A1c of 5.3. Amylase 1100, lipase more than 2000. TSH 2.3. DIAGNOSES: 1. Liver failure. 2. Pancreatitis. 3. Anemia. 4. Hypoglycemia. 5. Diabetes. PLAN: 1. Change of the code status by family to DNR noted. 2. We will continue IV fluids - dextrose. 3. Continue glucose monitoring. 4. Hypoglycemia protocol. 5. No need for scheduled diabetic medication. 6. Continue ICU care. 7. Prognosis remains very poor. Thank you, Dr. Diop, for the courtesy of this consultation. Richard Tay M.D. DR: GHAZAL JOB#: [id number] CC: ASHLI
--- NOTE | 2021-01-15 13:48 | Diagnostic Imaging Report ---
Indication: Cough Technique: One view of the chest Comparison: none Findings: Stable satisfactory tube and line positions. Large right pleural effusion is unchanged. Right lung consolidation is unchanged. There is increasing left lung infiltrate. Impression: Worsening left lung infiltrate, over one day
[2021-01-15] MEDS ORDERED: Octreotide Acetate 500 MCG in Sodium Chloride 499 ML IV SCH (14:00)
[2021-01-15] MEDS ORDERED: Phytonadione 1 MG in D5W 55 ML IVPB ONE (14:00)
--- NOTE | 2021-01-15 14:10 | NUR ---
NURSE NOTES: Dr. Ross notified there is no NG-tube or OG-tube present, ordered to have the lactulose doses to be held, octreotide started at 50mcg/min and rate of 50ml/hr. also to administer vitamin K and zosyn. there is no bleeding noted from the Ordoñez or rectal areal, remains on Levophed at 30mcg/min, phenylephrine at 240mcg/min and vasopressin at 0.04units. awaiting for fresh frazen plasma to be ready.
--- NOTE | 2021-01-15 14:33 | Internal Med Progress Note ---
Subjective Physician Name Gen Diop Attending Physician Gen Diop MD Current Medications Medications (Trade) Dose Ordered Sig/Vijay Route PRN Reason Start Time Stop Time Status Last Admin Dose Admin Chlorhexidine Gluconate (Kiana-Hex 2%) 1 applic DAILY@2000 TOPIC 01/14/21 20:00 04/14/21 19:59 01/14/21 20:01 Dextrose (Dextrose 50%) 25 ml Q30M PRN IV Hypoglycemia 01/14/21 07:30 04/14/21 07:29 Dextrose (Dextrose 50%) 50 ml Q30M PRN IV Hypoglycemia 01/14/21 07:30 04/14/21 07:29 01/14/21 11:42 Diphenhydramine HCl (Benadryl) 25 mg Q6H PRN ORAL Itching/Pruritis 01/13/21 16:45 02/12/21 16:44 Famotidine (Pepcid I.v.) 20 mg Q12HR IVP 01/14/21 16:15 02/13/21 16:14 01/15/21 09:16 Insulin Aspart (NovoLOG) BEFORE MEALS AND HS SUBQ 01/14/21 11:30 04/14/21 11:29 Lactulose (Cephulac) 20 gm THREE TIMES A DAY ORAL 01/14/21 09:00 02/13/21 08:59 01/15/21 09:17 Lorazepam (Ativan) 1 mg Q4H PRN ORAL For Anxiety 01/13/21 16:45 01/20/21 16:44 01/14/21 03:40 Metoprolol Tartrate (Lopressor) 25 mg Q12HR ORAL 01/14/21 09:00 04/14/21 08:59 01/14/21 08:29 Morphine Sulfate (Morphine Sulfate) 2 mg Q3H PRN IVP Moderate Pain (Pain Scale 4-6) 01/13/21 16:45 01/20/21 16:44 01/14/21 02:59 Norepinephrine Bitartrate 16 mg/ Dextrose 500 ml @ 0 mls/hr Q24H IV 01/14/21 20:15 01/17/21 20:14 01/15/21 14:05 Octreotide Acetate 500 mcg/ Sodium Chloride 500 ml @ 50 mls/hr Q10H IV 01/15/21 14:00 02/14/21 13:59 01/15/21 14:06 Ondansetron HCl (Zofran) 4 mg Q6H PRN IVP Nausea & Vomiting 01/13/21 16:45 02/12/21 16:44 Pantoprazole (Protonix) 40 mg EVERY 12 HOURS ORAL 01/14/21 21:00 02/13/21 20:59 Phenylephrine HCl 100 mg/Dextrose 250 ml @ 0 mls/hr Q24H IV 01/14/21 18:00 01/17/21 17:59 01/15/21 13:16 Piperacillin Sod/ Tazobactam Sod 3.375 gm/Sodium Chloride 110 ml @ 27.5 mls/hr EVERY 8 HOURS IVPB 01/14/21 10:00 01/19/21 09:59 01/15/21 13:17 Rifaximin (Xifaxan) 550 mg EVERY 12 HOURS ORAL 01/14/21 09:00 01/21/21 08:59 01/15/21 09:17 Sodium Bicarbonate 100 ml/Dextrose/ Sodium Chloride 1,100 ml @ 75 mls/hr [id number] IV 01/14/21 17:00 02/13/21 16:59 01/15/21 06:00 Temazepam (Restoril) 15 mg DAILYPRN PRN ORAL Insomnia 01/13/21 16:45 01/20/21 16:44 Vancomycin HCl ([facility] pharmacy to dose) 1 ea DAILY PRN MISC Per rx protocol 01/14/21 08:00 02/13/21 07:59 Vasopressin 100 units/Sodium Chloride 100 ml @ 0 mls/hr Q24H IV 01/14/21 19:30 01/17/21 19:27 01/14/21 21:30 Allergies: Coded Allergies: CEPHALEXIN (Verified Allergy, Unknown, 01/13/21) Subjective in ICU, intubated, unable to respond, hypotension, WBC: 15.1, hemoglobin 8.5. Objective Last Vital Signs Date Time Temp Pulse Resp B/P (MAP) Pulse Ox O2 Delivery O2 Flow Rate FiO2 01/15/21 14:05 90/65 01/15/21 13:16 69 01/15/21 12:30 35 97 01/15/21 12:00 Mechanical Ventilator 01/15/21 12:00 100 01/15/21 12:00 95.8 01/13/21 13:11 2.0 Laboratory Tests Test 01/14/21 17:09 01/14/21 20:15 01/15/21 04:00 01/15/21 04:34 Arterial Blood pH 7.073 (7.350-7.450) Arterial Blood Partial Pressure CO2 36.9 mmHg (35.0-45.0) Arterial Blood Partial Pressure O2 212.1 mmHg (75.0-100.0) H Arterial Blood HCO3 10.5 mmol/L (22.0-26.0) *L Arterial Blood Oxygen Saturation 99.6 % (95-100) Arterial Blood Base Excess -18.1 (-2-2) *L Pacheco Test Positive White Blood Count 15.9 K/UL (4.8-10.8) H 15.1 K/UL (4.8-10.8) H Red Blood Count 1.65 M/UL (4.70-6.10) L 2.83 M/UL (4.70-6.10) L Hemoglobin 5.2 G/DL (14.2-18.0) 8.5 G/DL (14.2-18.0) #L Hematocrit 17.8 % (42.0-52.0) #L 28.6 % (42.0-52.0) #L Mean Corpuscular Volume 108 FL (80-99) H 101 FL (80-99) H Mean Corpuscular Hemoglobin 31.9 PG (27.0-31.0) H 30.2 PG (27.0-31.0) Mean Corpuscular Hemoglobin Concent 29.4 G/DL (32.0-36.0) L 29.9 G/DL (32.0-36.0) L Red Cell Distribution Width 25.1 % (11.6-14.8) H 25.2 % (11.6-14.8) H Platelet Count 71 K/UL (150-450) L 62 K/UL (150-450) L Mean Platelet Volume 9.1 FL (6.5-10.1) 7.9 FL (6.5-10.1) Neutrophils (%) (Auto) % (45.0-75.0) % (45.0-75.0) Lymphocytes (%) (Auto) % (20.0-45.0) % (20.0-45.0) Monocytes (%) (Auto) % (1.0-10.0) % (1.0-10.0) Eosinophils (%) (Auto) % (0.0-3.0) % (0.0-3.0) Basophils (%) (Auto) % (0.0-2.0) % (0.0-2.0) Differential Total Cells Counted 100 Neutrophils % (Manual) 84 % (45-75) H Lymphocytes % (Manual) 3 % (20-45) L Monocytes % (Manual) 4 % (1-10) Eosinophils % (Manual) 0 % (0-3) Basophils % (Manual) 0 % (0-2) Band Neutrophils 9 % (0-8) H Platelet Estimate Decreased L Platelet Morphology Normal Polychromasia 1+ Hypochromasia 2+ Anisocytosis 3+ Macrocytosis 1+ Schistocytes Occasional Sodium Level 134 MMOL/L (136-145) L Potassium Level 5.9 MMOL/L (3.5-5.1) H Chloride Level 102 MMOL/L (98-107) Carbon Dioxide Level 11 MMOL/L (21-32) L Anion Gap 23 mmol/L (5-15) H Blood Urea Nitrogen 47 mg/dL (7-18) H Creatinine 2.9 MG/DL (0.55-1.30) H Estimat Glomerular Filtration Rate 22.5 mL/min (>60) Glucose Level 98 MG/DL (74-106) Uric Acid 7.9 MG/DL (2.6-7.2) H Calcium Level 7.7 MG/DL (8.5-10.1) L Phosphorus Level 8.8 MG/DL (2.5-4.9) H Magnesium Level 2.3 MG/DL (1.8-2.4) Iron Level 50 ug/dL (50-175) Total Iron Binding Capacity 73 ug/dL (250-450) L Percent Iron Saturation 68 % (15-50) H Unsaturated Iron Binding 23 ug/dL (112-346) L Ferritin 446 NG/ML (8-388) H Total Bilirubin 21.7 MG/DL (0.2-1.0) H Direct Bilirubin 13.1 MG/DL (0.0-0.3) H Gamma Glutamyl Transpeptidase 47 U/L (5-85) Aspartate Amino Transf (AST/SGOT) 5760 U/L (15-37) H Alanine Aminotransferase (ALT/SGPT) 792 U/L (12-78) H Alkaline Phosphatase 512 U/L (46-116) H Ammonia 78 umol/L (11-32) H Lactate Dehydrogenase 2906 U/L (81-234) H Troponin I 1.374 ng/mL (0.000-0.056) C-Reactive Protein, Quantitative 7.5 mg/dL (0.00-0.90) H Pro-B-Type Natriuretic Peptide 8891 pg/mL (0-125) H Total Protein 5.2 G/DL (6.4-8.2) L Albumin 2.1 G/DL (3.4-5.0) L Globulin 3.1 g/dL Albumin/Globulin Ratio 0.7 (1.0-2.7) L Amylase Level 1199 U/L (25-115) *H Lipase > 2000 U/L (73-393) H Alpha Fetoprotein Pending Vitamin B12 Level > 2000 PG/ML (193-986) H Folate 15.0 NG/ML (8.6-58.9) Thyroid Stimulating Hormone (TSH) 2.382 uiU/mL (0.358-3.740) Random Vancomycin Level 20.6 ug/mL Hepatitis A IgM Antibody Pending Hepatitis B Surface Antigen Pending Hepatitis B Core IgM Antibody Pending Hepatitis C Antibody Pending POC Whole Blood Glucose Pending Test 01/15/21 07:10 01/15/21 09:32 01/15/21 11:55 Prothrombin Time > 100.0 SEC (9.30-11.50) H Prothromb Time International Ratio > 10.0 (0.9-1.1) *H Activated Partial Thromboplast Time > 150 SEC (23-33) *H Carcinoembryonic Antigen Pending CA 19-9 Antigen Pending CA 125 Antigen Pending Arterial Blood pH 6.944 (7.350-7.450) Arterial Blood Partial Pressure CO2 34.9 mmHg (35.0-45.0) L Arterial Blood Partial Pressure O2 48.5 mmHg (75.0-100.0) Arterial Blood HCO3 7.4 mmol/L (22.0-26.0) *L Arterial Blood Oxygen Saturation 73.3 % (95-100) *L Arterial Blood Base Excess -23.3 (-2-2) *L Pacheco Test N/a POC Whole Blood Glucose 115 MG/DL (74-106) H Microbiology Date/Time Source Procedure Growth Status 01/14/21 10:15 Blood Blood Culture - Preliminary Resulted 01/13/21 14:24 Urine,Clean Catch Urine Culture - Final Mixed Gram Positive Organism Complete 01/13/21 11:11 Blood Blood Culture - Preliminary NO GROWTH AFTER 24 HOURS Resulted 01/13/21 11:10 Blood Blood Culture - Preliminary Resulted Intake and Output 01/14/21 01/15/21 19:00 07:00 Intake Total 406.25 ml 1867.50 ml Output Total 30 ml 0 ml Balance 376.25 ml 1867.50 ml IV Total 406.25 ml 1867.50 ml Output Urine Total 30 ml 0 ml Objective GENERAL: Alter, unresponsive, jaundiced. HEENT: Eyes with scleral icterus, otherwise pupils are equal and responsive to light and accommodation. , ET tube in the mouth. NECK: Supple , no JVD CHEST: mechanical breath sounds, no wheezes, decreased in bases. CARDIOVASCULAR: Regular rhythm and rate. S1-S2 are normal without murmurs ABDOMEN: Distended, decreased bowel sounds with no rebound or guarding to palpitation. RECTAL/GENITAL: Refused. NEUROLOGIC: unable to obtain due to patient's status, unable to follow command, unresponsive. Assessment/Plan Assessment/Plan ASSESSMENT: This is a 60-year-old male. 1. Liver mass. 2. Liver failure / liver cirrhosis. 3. Urinary tract infection. 4. Atrial fibrillation with rapid ventricular rate. 5. Pancreatitis. 6. Coagulopathy. 7. Renal failure. 8. Elevated liver function tests. 9. Hypertension. 10. Hypercholesterolemia. 11. acute hypoxemic respiratory failure. 12. Septic shock. TREATMENT: 1. Liver mass. An Oncology consultation has been obtained with Dr. Adkins. Patient has a stated history of possible liver cancer, however this has not been diagnosed. 2. Liver failure. This may be secondary to liver cancer as above. A Gastroenterology consultation has been obtained with Dr. Jorje Ross. 3. Urinary tract infection. Patient has been placed empirically on intravenous Levaquin. A urine culture is pending. 4. Atrial fibrillation with rapid ventricular rate. A Cardiology consultation has been obtained with Dr. Dayne Vasquez. 5. Pancreatitis. As above, a Gastroenterology consultation has been obtained with Dr. Jorje Ross. 6. Coagulopathy. This is secondary to liver failure as above. 7. Renal failure. This is probably secondary to hepatorenal failure. 8. Elevated liver function tests. 9. Hypertension. Continue metoprolol as above. 10. Hypercholesterolemia. Continue atorvastatin as above. CODE STATUS: DNR Hypotension, poor prognosis. Gen Diop MD Jan 15, 2021 14:33
--- NOTE | 2021-01-15 15:20 | NUR ---
NURSE NOTES: updated next of kin, timmy brown, at number [phone] informed of her fathers progress. remains on Levophed at 30mcg/min. 0henylephrine at 240mcg/min and vasopressin at 0.04units/min.
--- NOTE | 2021-01-15 19:29 | NUR ---
NURSE NOTES: Dr. Diop called and notified of patient passing and pronounced by ER physician.
--- NOTE | 2021-01-15 19:30 | NUR ---
NURSE NOTES: Patient pronounced at the bedside by ER physician Dr. Rodriguez at 1928.
--- NOTE | 2021-01-15 19:32 | Emergency Room Report ---
Physical Exam Vital Signs Date Time Temp Pulse Resp B/P (MAP) Pulse Ox O2 Delivery O2 Flow Rate FiO2 01/13/21 10:40 97.0 56 14 129/58 (81) 96 Room Air 01/13/21 13:11 2.0 100 Medical Decision Making Diagnostic Impression: Primary Impression: Liver failure Qualified Codes: K72.00 - Acute and subacute hepatic failure without coma Additional Impressions: Atrial fibrillation with RVR Pleural effusion associated with hepatic disorder Coagulopathy Leukocytosis Qualified Codes: D72.829 - Elevated white blood cell count, unspecified Pancreatitis Qualified Codes: K85.90 - Acute pancreatitis without necrosis or infection, unspecified Renal insufficiency UTI (urinary tract infection) Qualified Codes: N39.0 - Urinary tract infection, site not specified ER Course 60-year-old male history of liver failure admitted for multisystem failure in ICU. Intubated, multiple pressors. Gradually declining vital signs. Patient was made DO NOT RESUSCITATE. Patient went into asystole approximately 1900. At the time of my evaluation the patient remained asystolic. No palpable pulse. Unreadable blood pressure. Absent heart sounds. Pronounced 1927 Last Vital Signs Date Time Temp Pulse Resp B/P (MAP) Pulse Ox O2 Delivery O2 Flow Rate FiO2 01/15/21 18:00 67/42 01/15/21 17:00 68 39 01/15/21 16:00 Mechanical Ventilator 01/15/21 16:00 100 01/15/21 16:00 97.0 01/15/21 14:30 97 01/13/21 13:11 2.0 Disposition: Condition: Referrals: NON PHYSICIAN (PCP) Taurus Rodriguez MD Jan 15, 2021 19:32
--- NOTE | 2021-01-15 19:45 | NUR ---
NURSE NOTES: Family is at bedside and aware that pt's cellphone (Iphone) is not here at pt's bedside. Addendum: 01/15/21 at 2000 by Sam Covarrubias RN timo who is night time night charge also aware and notified.
[2021-01-15] MEDS ORDERED: Sterile Water Irrig 1000ml IRRIG ONE (19:59)
[2021-01-15] MEDS ORDERED: NS 275ml ONE (19:59)
[2021-01-15] MEDS ORDERED: Tubing IV Secondary IV ONE (19:59)
--- NOTE | 2021-01-16 10:46 | Cardiology Report ---
APPROVED REPORT EKG Measurement Heart [id number] <Conclusion> Atrial fibrillation with rapid ventricular response Low voltage QRS Nonspecific T wave abnormality Abnormal ECG
--- NOTE | 2021-01-18 10:03 | Cardiology Report ---
APPROVED REPORT EXAM: Two-dimensional and M-mode echocardiogram with Doppler and color Doppler. INDICATION Atrial flutter M-Mode DIMENSIONS IVSd1.1 (0.7-1.1cm)Left Atrium (MM)4.2 (1.6-4.0cm) LVDd4.3 (3.5-5.6cm)Aortic Root3.5 (2.0-3.7cm) PWd1.1 (0.7-1.1cm)Aortic Cusp Exc.2.1 (1.5-2.0cm) IVSs1.8 cmEPSS0.5 (>1.0cm) LVDs2.9 (2.5-4.0cm) PWs1.1 cm <Conclusion> Normal left ventricular chamber size. Mildly depressed systolic function and wall motion. Left ventricular ejection fraction estimated to be 50 %. No evidence of left ventricular hypertrophy. No evidence of pericardial effusion. Mild left atrial enlargement. Right cardiac chamber sizes are within normal limits. Focal aortic valve sclerosis with adequate cusp excursion. Thickened mitral valve leaflets with normal excursion. Mitral annulus and aortic root calcification. Normal pulmonic valve structure. Normal tricuspid valve structure. IVC at normal size without physiologic collapse. A color flow and spectral Doppler study was performed and revealed: Mild aortic regurgitation. Moderate to Severe mitral regurgitation. Mitral inflow indicates normal left ventricular diastolic function. Moderate tricuspid regurgitation. Tricuspid systolic velocities suggests peak right ventricular systolic pressure of 38 mmHg, consistent with mild pulmonary hypertension.
--- NOTE | 2021-01-20 12:01 | Discharge Summary ---
Discharge Summary Discharge Summary _ SUMMARY DATE OF ADMISSION: 01/13/2021 DATE OF EXPIRATION: 01/15/2021 REASON FOR ADMISSION: 60 years old male with past medical history of hypertension , hypercholesterolemia , questionable history of liver cancer, presented to ED complaining of generalized pain . Patient was found to be in liver failure . Patient was also noted to have atrial fibrillation with rapid ventricular response. Patient admitted with a new onset of liver failure liver failure. Laboratory work-up revealed leukocytosis, anemia and thrombocytopenia. ESR 101. CRP 12.6. Initial troponin negative. pro BNP 2317. Lipase above 2000. Total bilirubin 26 .direct bilirubin 18.8. AST 180, ALT 74. Alkaline phosphatase 634 Ammonia 71. Lactic acid 3.4 CONSULTANTS: gang tailer Dr. Vasquez ID specialist GI specialist Dr. Ross project coordinator Dr. Munoz surgery Dr. Izquierdo discount clerk corporate travel consultant/oncologist Dr. Adkins [facility] COURSE: Patient admitted. The patient noted to be septic , hypothermic and with leukocytosis He recently was hospitalized with perinephric abscess. Patient started on empiric antibiotic as per ID specialist. CT scan of the abdomen and pelvis revealed hepatic cirrhosis with atrophy and surface nodularity. 6.5 cm round exophytic mass arising arising from the liver. Presumably related to stated clinical history of liver cancer. Evidence of portal hypertension with large periesophageal and perigastric varices. Moderate ascites , likely related to liver disease. Diverticulosis without evidence of diverticulitis. Borderline cardiomegaly . Chest x-ray revealed massive right pleural effusion. Abdominal ultrasound demonstrated evidence of hepatic cirrhosis. Large right pleural effusion. Moderate ascites and borderline splenomegaly. Venous duplex was negative for evidence of acute DVT. On patient sustained cardiopulmonary arrest and was intubated. Patient was also hemodynamically unstable and started on pressors , and subsequently was transferred to ICU for further management. Echocardiogram demonstrated mildly depressed systolic function and wall motion with ejection fraction estimated to be 50%. No evidence of pericardial effusion. Right ventricular systolic pressure of 38 consistent with a mild pulmonary hypertension. Moderate to severe mitral regurgitation. Multiple specialties followed-up. Patient was on empiric antibiotic as per ID specialist recommendation. Blood culture revealed staph epidermidis . Urine culture revealed mixed gram-positive organisms. Patient had persistent leukocytosis with a trend up and was hypothermic. Patient was followed-up with chest x-ray , which showed worsening left lung infiltrate . IV fluids with bicarbonate provided. Patient received lactulose for elevated ammonia. LFT , lipase and amylase were closely monitored. Patient remain n.p.o. Patient received fresh fresh frozen plasma. Patient was on PPI and octreotide. . Ventilator support and pulmonary toilet provided. Patient required multiple pressors for hemodynamic support. Patient was kept off anticoagulation, given significant coagulopathy secondary to cirrhosis. Overall prognosis was poor . laboratory work-up showed worsening serum creatinine and rising serum bilirubin. Patient was not a candidate for dialysis. Supportive care provided. Patient's condition and poor prognosis was discussed with the family Patient subsequently was made DNR/DNI. Patient condition was rapidly deteriorating. He was on 3 different pressors with max dosing, but remained hemodynamically unstable. He was pronounced on 01/15 at 19: 28. Cause of : cardiopulmonary arrest. FINAL DIAGNOSES: Septic shock Sepsis UTI Probably PNA Status post cardiopulmonary arrest Acute hypoxemic respiratory failure , requiring intubation Liver mass Liver failure Atrial fibrillation with rapid ventricular response Pleural effusion, associated with hepatic disorder Pancreatitis Coagulopathy Acute renal failure Transaminitis Anemia I have been assigned to dictate discharge summary for this account. I was not involved in the patient's management. Shanthi Claudio NP Jan 20, 2021 12:01
== END 2021-01-15 20:00 | disposition expired | DRG 871 ==
LOC: EMR 12:28 → 2E 12:40 → EDBEDREQ 13:57 → 2W 01-14 13:26 → ICU 01-14 14:36
PROC: 0BH17EZ Insertion of Endotracheal Airway into Trachea, Via Natural or Artificial Opening (ICD-10-PCS; principal; 2021-01-14)
PROC: 5A1945Z Respiratory Ventilation, 24-96 Consecutive Hours (ICD-10-PCS; principal; 2021-01-14)
PROC: 30233N1 Transfusion of Nonautologous Red Blood Cells into Peripheral Vein, Percutaneous Approach (ICD-10-PCS; principal; 2021-01-14)
PROC: 05HM33Z Insertion of Infusion Device into Right Internal Jugular Vein, Percutaneous Approach (ICD-10-PCS; principal; 2021-01-14)
DX: A41.9 Sepsis, unspecified organism (principal); K72.00 Acute and subacute hepatic failure without coma; K85.90 Acute pancreatitis without necrosis or infection, unspecified; R65.21 Severe sepsis with septic shock; J18.9 Pneumonia, unspecified organism; J96.01 Acute respiratory failure with hypoxia; C22.8 Malignant neoplasm of liver, primary, unspecified as to type; N39.0 Urinary tract infection, site not specified; J91.8 Pleural effusion in other conditions classified elsewhere; R18.8 Other ascites; K76.6 Portal hypertension; I85.10 Secondary esophageal varices without bleeding; N17.9 Acute kidney failure, unspecified; I85.00 Esophageal varices without bleeding; D68.4 Acquired coagulation factor deficiency; I48.91 Unspecified atrial fibrillation; Z88.1 Allergy status to other antibiotic agents; I86.4 Gastric varices; I10 Essential (primary) hypertension; I69.322 Dysarthria following cerebral infarction; E78.5 Hyperlipidemia, unspecified; Z66 Do not resuscitate; E11.649 Type 2 diabetes mellitus with hypoglycemia without coma; Z86.74 Personal history of sudden cardiac arrest; R74.01 Elevation of levels of liver transaminase levels; D64.9 Anemia, unspecified
CPT/HCPCS: 36415; 71045; 74176; 76700; 80053; 80061; 80202; 81003; 82105; 82140; 82150; 82248; 82378; 82550; 82607; 82728; 82746; 82803; 82962; 82977; 83036; 83540; 83550; 83605; 83615; 83690; 83735; 83880; 84100; 84134; 84443; 84484; 84550; 85007; 85025; 85379; 85610; 85651; 85730; 86140; 86304; 86705; 86709; 86803; 86850; 86900; 86901; 86920; 87040; 87086; 87181; 87340; 92950; 93005; 93306; 93970; 94002; 94003; 96365; 96375; 96376; 99291; G0480; J1815; J2370; J2405; J3430